=== PATIENT | male | born 1955 | race Caucasian/White ===

== ENCOUNTER 2020-08-30 13:46 | Outpatient (REF) | payer MEDICARE, SELFPAY ==
[2020-08-30 15:20] LABS: Anion Gap 14 (12-20); Blood Urea Nitrogen 17 mg/dL (9-16); Carbon Dioxide 32 mmol/L (22-29); Chloride 96 mmol/L (96-108); Estimated Glomerular Filt Rate > 60; Glucose Random 160 mg/dL (60-115); Sodium 137 mmol/L (135-145)
[2020-08-30 15:55] LABS: Folate > 20.0 ng/mL (> or = 4.0); Vitamin B12 1363 pg/mL (200-900)
[2020-08-31 08:40] LABS: Syphilis Screen Nonreactive (Nonreactive)
[2020-08-31 22:27] LABS: Lyme Abs Screen <0.90 index
[2020-09-05 11:16] LABS: IgA 670 mg/dL (70-320); IgG 1699 mg/dL (600-1540); IgM 36 mg/dL (50-300)
== END 2020-08-30 13:47 | disposition home or self-care (01) ==
LOC: HO.LAB 13:46
PROVIDERS: PCP Internal Medicine; Visit Provider Psychiatry & Neurology Neurology
DX: G62.9 Polyneuropathy, unspecified (principal)
CPT/HCPCS: 36415; 80048; 82607; 82746; 82784; 86334; 86618; 86780

== ENCOUNTER 2020-09-25 08:52 | Emergency (ER) | payer MEDICARE, SELFPAY ==
--- NOTE | 2020-09-25 08:53 | ED_ITS ---
HPI - Headache General Chief Complaint: Headache Stated Complaint: headache x3days Time Seen by Provider: 09/25/20 08:53 Source: patient Mode of arrival: EMS Limitations: no limitations History of Present Illness HPI Narrative: 59 y/o male presenting via EMS from custodial with right sided headache for the last 3-4 days. He states he just woke up with the headache and it is on the back of his head on the right side, extends down his neck and radiates to behind his eyes. He does not have a history of migraines, states he usually does not get headaches. He denies vision changes, gait disturbances, focal weakness. He denies COVID-19 symptoms and has had 5 tests in the last few months, all negative and last one was last week. He admits to some photophobia and sensivitity to noise. Most significant exacerbating factors are turning his head to the left and touching the base of his skull. MD elicited complaint: headache Onset (ago): day(s) (3-4) Onset description: suddenly Location: right, occipital, retro-orbital and down into neck Severity: moderate Quality & Timing: aching and different than previous headaches Exacerbating factors: movement of head/neck, light and noise Relieving factors: nothing Context: occurred at rest Associated symptoms: none Treatments prior to arrival: acetaminophen Related Data Previous Rx's Medication Instructions Recorded cyclobenzaprine 10 mg PO TID PRN #12 tab 09/25/20 hydrocodone-acetaminophen [[place]] 1 tab PO Q6H PRN #10 tab 09/25/20 Allergies Allergy/AdvReac Type Severity Reaction Status Date / Time No Known Allergies Allergy Verified 09/25/20 09:06 Review of Systems Review of Systems: Constitutional: No Fever, No Chills ENT/Mouth: No sore throat, No Rhinorrhea, No Swallowing Difficulty Eyes: No Eye Pain, No Swelling, No Redness, No vision changes Cardiovascular: No Chest Pain, No SOB Respiratory: No Cough, No Sputum, No Wheezing Gastrointestinal: No Nausea, + Vomiting (chronic), No Diarrhea, No abdominal Pain Genitourinary: No Dysuria, No Urinary Frequency, No Hematuria Musculoskeletal: No joint pain, + Myalgias Skin: No Skin Lesions, No rash Neuro: No Weakness, No Numbness, No Dizziness, + Headache Psych: No Anxiety/Panic, No Depression Heme/Lymph: No Bruising, No Lymphadenopathy Endocrine: No Polyuria, No Polydipsia PMF Past Medical History Attestation statement: The following information was validated with the patient. Medical History (Updated 09/25/20 @ 12:29 by SURINDER Billy) Anxiety Asthma Depression GERD (gastroesophageal reflux disease) Hypertension Surgical History (Updated 09/25/20 @ 09:17 by SURINDER Billy) History of hip replacement Social History Social History Alcohol intake: former Smoking Status: Former smoker Use of substances other than those prescribed or required for medical reasons: No Advance Directives: No Advance Directives Information Provided: Yes Physical Exam Vital Signs: Vital Signs: Last Vital Signs Temp 98.5 F 09/25/20 12:00 Pulse 73 09/25/20 12:00 Resp 18 09/25/20 12:00 BP 121/69 09/25/20 12:00 Pulse Ox 96 09/25/20 12:00 Body Mass Index 36.0 Appearance: Alert. Oriented X3. No acute distress. Eyes: Pupils equal, round and reactive to light. ENT: Pharynx normal. Neck: Normal inspection. Right occipital tenderness with muscle spasm of posterior right cervical region. No C-spine tenderness. Rotation to left exacerbates discomfort. CVS: Normal heart rate and rhythm. Pulses normal. Respiratory: No respiratory distress. Breath sounds normal. Abdomen: Obese, Soft and nontender. +BS x4 Skin: Skin warm and dry. Normal skin color. Normal skin turgor. No rashes. Extremities: No lower extremity edema. Neuro: Oriented X 3. No motor deficit. No sensory deficit. NIH Stroke Scale Internal: Initial- Upon Arrival Level of Consciousness: Alert Level of Consciousness Questions: Answers both questions correctly Level of Consciousness Commands: Performs both tasks correctly Best Gaze: Normal Visual: No visual loss Facial Palsy: Normal Motor Arm (Right): No drift Motor Arm (Left): No drift Motor Leg (Right): No drift Motor Leg (Left): No drift Limb Ataxia: Absent Sensory: Normal Best Language: No aphasia Dysarthia: Normal Extinction and Inattention: No abnormality Score: 0 Course Course Course Narrative: 65 yo male presenting with right sided headache and neck ache. Exam consistent with muscular etiology. Low suspicion for CVA, ICH. Will treat with NSAID, muscle relaxer and topical lidoderm patch and reassess. Reevaluation(s) Reevaluation #1: On reassessment after medications he states he has had no relief. He is concerned he has a cancer in the back of his neck and is requesting a CT scan. Continues to be tender on exam. Will give dose of oxycodone for pain and proceed with CT scan to assess for organic causes. Reevaluation #2: CT scan shows Mild cerebral volume loss. No acute intracranial process seen. Degenerative spine disease. Moderate ventral bridging osteophytes and degenerative disc changes. No visible acute fracture or dislocation or subluxation. Pain is slightly improved after meds. He feels well enough to go home. He is stable for discharge and plans to f/u with his PCP at [place] this week. Discharge Plan Discharge Clinical Impression: Headache Qualifiers: Headache type: tension-type Headache chronicity pattern: acute headache Intractability: not intractable Qualified Code(s): G44.209 - Tension-type headache, unspecified, not intractable Patient Disposition: Home, Self-Care Instructions: Acute Headache (ED) Additional Instructions: Your CT scan today showed only some degenerative disc disease in your neck, no obvious causes of your head and neck ache. Recommend using ice and/or heat several times per day to the area to help with muscle spasm. Take medications as needed for pain. Follow up with your doctor this week. If your headache persists or worsens come back to the ER for further evaluation. Prescriptions: New cyclobenzaprine 10 mg tablet 10 mg PO TID PRN (Reason: muscle spasm) Qty: 12 RF: 0 hydrocodone-acetaminophen [[place]] 5-325 mg tablet 1 tab PO Q6H PRN (Reason: pain) Qty: 10 RF: 0
[2020-09-25 08:59] VITALS: BP 130/73; PULSE 67; RESP 20; O2SAT 97; BMI 36.0
[2020-09-25] MEDS: Lidocaine 4 % Patch ADH..PATCH 1 PATCH TRANSDERMA (09:17)
[2020-09-25] MEDS: Ketorolac Tromethamine 30 MG/ML VIAL IM (09:18)
[2020-09-25] MEDS: Cyclobenzaprine HCl 10 MG TABLET PO (09:18)
--- NOTE | 2020-09-25 09:36 | PC.NURSE ---
Pt presents to the ED with c/o right sided headache and neck pain. He is alert, rr even, speaks in full sentences, skin is pwdi, and he is in moderate distress due to symptoms. SURINDER Chowdhury in to see pt and provided orders. Pt medicated per emar.
[2020-09-25 10:32] VITALS: BP 120/58; PULSE 62; O2SAT 97
--- NOTE | 2020-09-25 10:34 | CT_ITS ---
EXAMINATION: BRAIN AND CT CERVICAL SPINE WITHOUT CONTRAST. CLINICAL INFORMATION: Headache and right-sided neck pain COMPARISON: None TECHNIQUE: 5 mm thin axial and reformatted 2 mm thin sagittal and coronal images of brain were obtained. Subsequently axial 3 mm thin and reformatted 2 mm thin sagittal and coronal images of cervical spine were obtained. [facility] 1555 FINDINGS: Brain: There is no acute intra-axial, extra-axial bleed, masses, collection midline shift. The lateral ventricles are symmetrical in size and configuration with mild enlargement. The cortical sulci are symmetrical and appear normal No acute infarct in evolution. The sanchez to white matter differentiation is maintained. Bone windows reveal no calvarial abnormality. Minimal bilateral maxillary sinus mucoperiosteal thickening. Rest of the paranasal sinuses and mastoid air cells are well-aerated The scalp soft tissues are normal. Cervical spine: There is mild straightening of cervical lordosis. The vertebral heights and alignment is normal. There is loss of disc it virtually every disc level with mild posterior enthesophytes and moderate to large ventral bridging osteophytes. The craniovertebral junction and the C1-C2 alignment is normal. There is moderate right C2-C3 facet arthropathy with neural foraminal narrowing. There is bilateral uncovertebral hypertrophic changes C3-C4 C4-C5 C5-C6 and C6-C7 disc levels with mild to minimal neural foraminal narrowing. No visible acute fracture or lytic process seen. The lung apices are clear. The airway is widely patent. The lung apices are clear CT/CT head/brain wo con IMPRESSION: Mild cerebral volume loss. No acute intracranial process seen Degenerative spine disease. Moderate ventral bridging osteophytes and degenerative disc changes. No visible acute fracture or dislocation or subluxation.
--- NOTE | 2020-09-25 10:34 | CT_ITS ---
EXAMINATION: BRAIN AND CT CERVICAL SPINE WITHOUT CONTRAST. CLINICAL INFORMATION: Headache and right-sided neck pain COMPARISON: None TECHNIQUE: 5 mm thin axial and reformatted 2 mm thin sagittal and coronal images of brain were obtained. Subsequently axial 3 mm thin and reformatted 2 mm thin sagittal and coronal images of cervical spine were obtained. [facility] 1555 FINDINGS: Brain: There is no acute intra-axial, extra-axial bleed, masses, collection midline shift. The lateral ventricles are symmetrical in size and configuration with mild enlargement. The cortical sulci are symmetrical and appear normal No acute infarct in evolution. The sanchez to white matter differentiation is maintained. Bone windows reveal no calvarial abnormality. Minimal bilateral maxillary sinus mucoperiosteal thickening. Rest of the paranasal sinuses and mastoid air cells are well-aerated The scalp soft tissues are normal. Cervical spine: There is mild straightening of cervical lordosis. The vertebral heights and alignment is normal. There is loss of disc it virtually every disc level with mild posterior enthesophytes and moderate to large ventral bridging osteophytes. The craniovertebral junction and the C1-C2 alignment is normal. There is moderate right C2-C3 facet arthropathy with neural foraminal narrowing. There is bilateral uncovertebral hypertrophic changes C3-C4 C4-C5 C5-C6 and C6-C7 disc levels with mild to minimal neural foraminal narrowing. No visible acute fracture or lytic process seen. The lung apices are clear. The airway is widely patent. The lung apices are clear CT/CT cervical spine wo con IMPRESSION: Mild cerebral volume loss. No acute intracranial process seen Degenerative spine disease. Moderate ventral bridging osteophytes and degenerative disc changes. No visible acute fracture or dislocation or subluxation.
[2020-09-25] MEDS: oxyCODONE HCl Immed Release 5 MG TABLET PO (10:39)
[2020-09-25 12:00] VITALS: BP 121/69; PULSE 73; RESP 18; TEMP 36.9; O2SAT 96
== END 2020-09-25 13:03 | disposition home or self-care (01) ==
PROVIDERS: Emergency Provider Emergency Medicine Emergency Medical Services; PCP Internal Medicine
DX: G44.209 Tension-type headache, unspecified, not intractable (principal); I10 Essential (primary) hypertension; M54.5 Low back pain; M54.2 Cervicalgia; Z87.891 Personal history of nicotine dependence; Z79.899 Other long term (current) drug therapy
CPT/HCPCS: 70450; 72125; 96372; 99284; J1885

== ENCOUNTER 2021-07-23 14:52 | Emergency (ER) | payer MEDICARE, SELFPAY ==
[2021-07-23 15:51] VITALS: BP 138/69; PULSE 107; RESP 18; TEMP 36.6; O2SAT 100; BMI 33.7
--- NOTE | 2021-07-23 15:58 | PC.NURSE ---
left foot and lower leg re-dressed with DSD.
[2021-07-23 17:40] LABS: Hematocrit 35.3 % (42-52); Hemoglobin 11.4 g/dl (14.0-18.0); Mean Corpuscular HGB Conc 32.3 g/dl (31.0-36.0); Mean Corpuscular Hemoglobin 29.8 pg (27.0-33.0); Mean Corpuscular Volume 92.4 fL (80-98); Mean Platelet Volume 10.5 fL (9.4-12.4); Red Blood Count 3.82 X10*6/uL (4.60-5.80); Red Cell Distribution Width 13.9 % (11.0-16.0); White Blood Count 3.7 X10*3/uL (4.8-10.8)
[2021-07-23 18:01] LABS: Platelet Count 91 X10*3/uL (160-400)
[2021-07-23 18:08] LABS: Anion Gap 12 (12-20); Blood Urea Nitrogen 15 mg/dL (9-16); Calcium 8.9 mg/dL (8.4-10.2); Carbon Dioxide 28 mmol/L (22-29); Chloride 104 mmol/L (96-108); Creatinine Clr Calc Pharmacy 124.7; Estimated Glomerular Filt Rate > 60; Glucose Random 185 mg/dL (60-115); Potassium 4.2 mmol/L (3.3-5.1); Sodium 140 mmol/L (135-145)
[2021-07-23 19:55] VITALS: BP 135/69; PULSE 61; RESP 20; TEMP 36.4; O2SAT 99
--- NOTE | 2021-07-23 20:12 | ED_ITS ---
HPI - General Adult General Chief complaint: Extremity Problem Stated complaint: FOOT INFECTON Time Seen by Provider: 07/23/21 19:41 Source: patient Mode of arrival: ambulatory Limitations: no limitations History of Present Illness HPI narrative: 66-year-old male with a past medical history of chronic lower extremity wounds for years, pre diabetes on metformin here with complaints of requesting wound check. Patient tells me that yesterday he had a cardiac catheterization at [facility] and when the supervisory historian saw his leg wounds they recommended he get evaluated for these. He tells me that the wounds have spread but he does not feel like there is more redness or drainage or odor with the wounds. He also does not have any fevers or chills at home reported. Patient tells me he has restless leg syndrome and is constantly itching at his legs which causes these wounds to occur. He does have a PATTERN MECHANIC who comes into his house twice a week to help with his ADLs. He does not have wound care nurse. He has not seen the wound care center before Related Data Previous Rx's Medication Instructions Recorded cyclobenzaprine 10 mg tablet 10 mg PO TID PRN #12 tab 09/25/20 hydrocodone 5 mg-acetaminophen 325 1 tab PO Q6H PRN #10 tab 09/25/20 mg tablet ([place]) doxycycline monohydrate 100 mg 100 mg PO BID #20 tab 07/23/21 tablet mupirocin 2 % topical ointment 1 appl TOPICAL DAILY #22 g 07/23/21 Allergies Allergy/AdvReac Type Severity Reaction Status Date / Time No Known Allergies Allergy Verified 09/25/20 09:06 Review of Systems Review of Systems: Yes all other systems are reviewed and are negative Constitutional: Constitutional: Reports no additional constitutional complaints, Denies body ache(s), Denies chills, Denies fever(s), Denies headache(s) and Denies weakness Eyes: Eyes: Reports no additional eye complaints and Denies change in vision ENT: Reports system reviewed and no additional complaints, except as documented, Denies dizziness, Denies headache(s), Denies nasal congestion, Denies nasal discharge and Denies neck pain Cardiovascular: Cardiovascular: Reports no additional cardiovascular complain ts, Denies chest pain, Denies leg edema and Denies dyspnea Respiratory: Respiratory: Reports no additional respiratory complaints, Denies cough and Denies dyspnea Gastrointestinal: Gastrointestinal: Reports no additional gastrointestinal complaints, Denies abdominal pain, Denies diarrhea, Denies nausea and Denies vomiting Genitourinary: Genitourinary: Denies urinary incontinence Musculoskeletal: Musculoskeletal: Reports no additional musculoskeletal complaints, Denies back pain, Denies arthralgias, Denies joint swelling, Denies neck pain, Denies numbness and Denies tingling Integumentary/Breasts: Skin/Breast: Reports system reviewed and no additional complaints, except as docu, Reports non-healing lesions and Denies rash Neurologic: Reports system reviewed and no additional complaints, except as documented, Denies Abnormal speech present, Denies dizziness, Denies headache(s), Denies numbness, Denies tingling and Denies weakness PMFSH Past Medical History Attestation statement: The following information was validated with the patient. Source: old records reviewed and nursing notes reviewed Medical History Anxiety Asthma Depression GERD (gastroesophageal reflux disease) Hypertension Surgical History History of hip replacement Social History Social History Alcohol intake: former Patient Tobacco Use Status: Former Tobacco user Use of substances other than those prescribed or required for medical reasons: No Advance Directives: No Advance Directives Information Provided: Yes Physical Exam Vital Signs: Vital Signs: Last Vital Signs Temp 97.5 F 07/23/21 19:55 Pulse 61 07/23/21 19:55 Resp 20 07/23/21 19:55 BP 135/69 07/23/21 19:55 Pulse Ox 99 07/23/21 19:55 Body Mass Index 33.7 Const: General: cooperative, healthy appearing, comfortable and no acute distress Orientation/consciousness: patient oriented x3 Limitations: no limitations HENMT: Head: Yes normal to inspection Ears: hearing grossly normal bilaterally General nose exam: Normal external nose present Face and sinus: Yes normal facial exam Mouth: Normal oral and palatal mucosa present Throat: Yes posterior oropharynx normal Eyes: General: appearance normal, both eyes and all related structures Pupils: Equal, round and reactive pupils present Neck: Neck: Yes normal visual inspection Chest: Chest palpation & inspection: normal inspection of the chest Resp: Effort & Inspection: normal respiratory effort Auscultation: clear to auscultation bilaterally Cardio: Rate: regular rate Rhythm: regular rhythm Peripheral pulses: Peripheral pulses 2+ throughout GI: Inspection: Yes normal to inspection Palpation (GI): Soft to palpation and nontender Auscultation: normal bowel sounds Back/Spine/Pelvis: Thoracic/Lumbar Spine: thoracic and lumbar spine normal to inspection Skin: General skin exam: no rashes or lesions noted Neuro: General: patient oriented x3, no focal motor deficits and normal sensation to monofilament Cranial nerves: Yes Equal, round and reactive pupils present Cognition (Neuro): normal cognition Speech: No Abnormal speech present Gait exam (Neuro): Normal gait present Motor exam (neuro): 5/5 motor strength present throughout Extrem: Other: General: Yes normal to inspection Course Course Course Narrative: Chronic lower extremity wounds for months to years. There is some slight redness to the lower extremities on the right lower extremity there is an area of eschar covering the wound bed. No fevers. Labs at baseline. Patient with benefit from wound care. He tells me he is unable to bend down due to chronic hip pain today care of his legs. In addition he has restless legs syndrome and is constantly itching his lower legs. Case management involved. They will arrange for VNA services. Patient instructed to call wound care tomorrow. Will start patient on oral antibiotics in the meantime. Wound dressed by nursing. Reviewed worrisome signs and symptoms of when to return to the emergency department. Comfortable discharge home. Medical Decision Making Medical Records Medical records reviewed: Yes I reviewed the patient's medical records. Lab Data Lab results reviewed: Yes I reviewed the patient's lab results. Result diagrams: 07/23/21 17:34 07/23/21 17:34 Labs: Lab Results 07/23/21 07/23/21 Range/Units 17:34 17:34 WBC 3.7 L (4.8-10.8) X10*3/uL RBC 3.82 L (4.60-5.80) X10*6/uL Hgb 11.4 L (14.0-18.0) g/dl Hct 35.3 L (42-52) % MCV 92.4 (80-98) fL MCH 29.8 (27.0-33.0) pg MCHC 32.3 (31.0-36.0) g/dl RDW 13.9 (11.0-16.0) % Plt Count 91 L (160-400) X10*3/uL MPV 10.5 (9.4-12.4) fL Absolute Nucleated RBC 0.000 (0.0-0.012) X10*3/uL Nucleated RBC % (auto) 0.0 (0.0-0.2) /100WBC Sodium 140 (135-145) mmol/L Potassium 4.2 (3.3-5.1) mmol/L Chloride 104 (96-108) mmol/L Carbon Dioxide 28 (22-29) mmol/L Anion Gap 12 (12-20) BUN 15 (9-16) mg/dL Creatinine 0.81 (0.5-1.4) mg/dL Estim Creat Clear Calc 124.7 Estimated GFR > 60 Random Glucose 185 H (60-115) mg/dL Calcium 8.9 (8.4-10.2) mg/dL Discharge Plan Discharge Clinical Impression: Chronic wound of extremity Patient Disposition: Home, Self-Care Instructions: Chronic Wounds (ED) Additional Instructions: Call wound care tomorrow to make an appointment for your wound ([phone]) The visiting nurses will reach out to you to set up an appointment to come and see you Apply topical antibiotic ointment to the wounds and keep them covered, clean and dry Seek care for fever >100.4 Prescriptions: New doxycycline monohydrate 100 mg tablet 100 mg PO BID Qty: 20 RF: 0 mupirocin 2 % ointment 1 appl topical DAILY Qty: 22 RF: 0 No Action cyclobenzaprine 10 mg tablet 10 mg PO TID PRN (Reason: muscle spasm) Qty: 12 RF: 0 hydrocodone-acetaminophen [[place]] 5-325 mg tablet 1 tab PO Q6H PRN (Reason: pain) Qty: 10 RF: 0 Referrals: Al Ma MD [Primary Care Provider] - 2 days Interventions: ED Discharge Assessment Last Done: 07/23/21 20:28
--- NOTE | 2021-07-23 20:40 | PC.NURSE ---
patient a&ox3, property assessment monitor sinus elana, vitals stable, patient ble dressings taken down by provider and will be re-dressed by tech, case mgmt in to see patient. patient to discharge home
--- NOTE | 2021-07-23 21:24 | MHC.CM.ED ---
CM met with patient. Pt lives in a [facility] nursing home in [place]. Tells CM he has been [facility] and he hopes to move there in about 3 weeks. Pt has a IRONWORKER WIRE FENCE ERECTOR twice a week for 1 hour, that her privately pays for. Pt is A&Ox3. Pt uses a cane and a walker if needed.Pt has chronic lower extremity wounds.Was referred to wound care. Referral made to [facility] for dressing changes at pt request. F2F completed. Script for Mupirocin sent to pharmacy. Dressing changes ordered once a day, 5 days a week. Apply topical triple antibiotic, apply non-stick dressing and kerlix wraps. Pt d/c home.
--- NOTE | 2021-07-24 13:51 | MHC.CM.ED ---
Patient was d/c'd from ER last night. Referral was made to [facility]. [facility] is not able to accept patient. Referral made to [facility]. They're reviewing. Spoke with [facility] wound care center. Patient does not have an appointment with them yet. Clinical info faxed to their office as requested. Continue to monitor for d/c needs.
== END 2021-07-23 21:06 | disposition home or self-care (01) ==
PROVIDERS: Emergency Provider Emergency Medicine Emergency Medical Services; PCP Internal Medicine
DX: S80.921A Unspecified superficial injury of right lower leg, initial encounter (principal); S80.922A Unspecified superficial injury of left lower leg, initial encounter; L03.114 Cellulitis of left upper limb; L03.113 Cellulitis of right upper limb; B96.89 Other specified bacterial agents as the cause of diseases classified elsewhere; X58.XXXA Exposure to other specified factors, initial encounter; Y93.9 Activity, unspecified; Y92.9 Unspecified place or not applicable; Y99.9 Unspecified external cause status; Z79.899 Other long term (current) drug therapy
CPT/HCPCS: 36415; 80048; 85027; 99284

== ENCOUNTER 2021-07-30 08:00 | Outpatient (RCR) | payer MEDICARE, SELFPAY | END 2021-08-06 14:48 | disposition home or self-care (01) | LOC: HO.WCC 08:00 | PROVIDERS: PCP Internal Medicine; Visit Provider Physician Assistant | DX: E11.65 Type 2 diabetes mellitus with hyperglycemia (principal); L01.00 Impetigo, unspecified; I10 Essential (primary) hypertension; Z79.2 Long term (current) use of antibiotics | CPT/HCPCS: 99213 ==

== ENCOUNTER 2022-05-20 07:23 | Emergency (ER) | payer OTHER, MEDICAID, SELFPAY ==
--- NOTE | ~2022-05-20 | CT_ITS ---
EXAMINATION: CT CERVICAL SPINE WITHOUT CONTRAST CLINICAL INFORMATION: Pain COMPARISON: 09/25/2020 TECHNIQUE: Multidetector CT imaging of the cervical spine was performed without the use of intravenous contrast. Coronal and sagittal reformats are reviewed. This CT examination was performed using dose optimization techniques as appropriate, variously including the following: *Automated exposure control *Adjustment of mA and/or kV according to patient size (this includes techniques or standardized protocols for targeted exams where dose is matched to indication/reason for exam; i.e. extremities or head) *Use of iterative reconstruction technique DLP: 539 mGy-cm FINDINGS: No acute fracture or traumatic malalignment. Vertebral body heights maintained. There is complete obliteration of the disc spaces throughout the cervical spine. Bulky endplate ossified present throughout the cervical spine, bridging and confluent anteriorly. There is also facet arthropathy throughout the cervical spine, quite bulky on the right from C2 through C4 and on the left at C5-6. Paraspinal soft tissues unremarkable. CT/CT cervical spine wo con IMPRESSION: * No acute fracture or traumatic malalignment. * Bulky endplate osteophytes present throughout the cervical spine with bridging anteriorly suggestive of diffuse idiopathic skeletal hyperostosis.
[2022-05-20 07:34] VITALS: BP 115/67; PULSE 63; RESP 18; TEMP 36.7; O2SAT 96; BMI 33.7
--- NOTE | 2022-05-20 07:35 | ECG_ITS ---
Test Reason : shoulder pain Blood Pressure : / mmHG Vent. Rate : 060 BPM Atrial Rate : 000 BPM P-R Int : 000 ms QRS Dur : 082 ms QT Int : 424 ms P-R-T Axes : 000 -01 077 degrees QTc Int : 424 ms Poor data quality, interpretation may be adversely affected Sinus rhythm with first degree Av block Otherwise abnormal ECG When compared with ECG of 08-DEC-2013 03:44, No significant changes seen Referred By: Keshia Atkins Electronically Signed By:Nithin Nathan
--- NOTE | 2022-05-20 07:37 | ED.GENADULT ---
HPI - General Adult General Chief complaint: General Medical Stated complaint: right neck/shoulder pain Time Seen by Provider: 05/20/22 07:35 Source: patient Mode of arrival: EMS Limitations: no limitations History of Present Illness HPI narrative: 67 yo male with hx of bipolar disorder, DM, HTN hx of neck arthritis comes in with c/o neck and L shoulder pain that woke him from sleep at 3am. He doesn't remember an injury and was inside yesterday. He has had neck pain in the past. EMS states the RNs at assisted living feel he is more confused but the patient denies this and he is alert and oriented x 3. MD complaint: neck and shoulder pain Onset (ago): hour(s) (3am today) Location: neck, left and upper extremity Radiation: non-radiation Severity: moderate Quality: aching, dull and constant Pain Consistency: constant Relieving factors: none Exacerbating factors: movement (moving neck or raising L arm) Associated symptoms: denies other symptoms Treatments prior to arrival: none Related Data Previous Rx's Medication Instructions Recorded cyclobenzaprine 10 mg tablet 10 mg PO TID PRN muscle spasm #12 09/25/20 tabs hydrocodone 5 mg-acetaminophen 325 1 tab PO Q6H PRN pain #10 tabs 09/25/20 mg tablet ([place]) doxycycline monohydrate 100 mg 100 mg PO BID #20 tabs 07/23/21 tablet mupirocin 2 % topical ointment 1 appl topical DAILY #22 grams 07/23/21 cyclobenzaprine 10 mg tablet 10 mg PO TID PRN muscle spasm #14 05/20/22 tabs lidocaine 4 % topical patch 1 patch topical DAILY PRN pain #10 05/20/22 ea Allergies Allergy/AdvReac Type Severity Reaction Status Date / Time No Known Allergies Allergy Verified 09/25/20 09:06 Review of Systems Review of Systems: Constitutional : No Fever, No Chills ENT/Mouth : No Ear Pain, No Hoarseness, No sore throat Eyes: No Eye Pain, No Swelling, No Redness, No Foreign Body Cardiovascular : No Chest Pain, No SOB Respiratory : No Cough, No Dyspnea Gastrointestinal : No Nausea, No Vomiting, No Diarrhea, No abdominal Pain Genitourinary : No Dysuria, No Hematuria Musculoskeletal : positive joint pain, No Myalgias, No Joint Swelling, pos neck pain Skin : No Skin lacerations, No rash Neuro : No Weakness, No Numbness, No Loss of Consciousness, No Dizziness, No Headache Psych : No Anxiety/Panic, No Depression Heme/Lymph: no easy bruising, no Lymphadenopathy Endocrine : No Polyuria, No Polydipsia All other systems reviewed and are negative [facility] Past Medical History Attestation statement: The following information was validated with the patient. Medical History Anxiety Asthma Depression GERD (gastroesophageal reflux disease) Hypertension Surgical History History of hip replacement Social History Social History Alcohol intake: former Patient Tobacco Use Status: Former Tobacco user Advance Directives: Yes Advance Directives Information Provided: Yes Advance Directives on File: No Physical Exam ED Vital Signs: Vital Signs - 24 hr 05/20/22 07:34 Temperature 98.1 F Pulse Rate 63 Respiratory Rate 18 Blood Pressure 115/67 Pulse Oximetry 96 Oxygen Delivery Method Room Air BMI result Body Mass Index 33.7 Appearance: Alert. Oriented X3. No acute distress. Eyes: Pupils equal, round and reactive to light. ENT: Pharynx normal. Neck: no midline ttp, L trapezius ttp reproduces pain CVS: Normal heart rate and rhythm. Pulses normal. Respiratory: No respiratory distress. Breath sounds normal. Abdomen: Soft and nontender. Skin: Skin warm and dry. Normal skin color. Normal skin turgor. Extremities: No lower extremity edema. L shoulder pain with ROM testing - distal NV intact Neuro: Oriented X 3. No motor deficit. No sensory deficit. Course Course Course Narrative: EKG nonischemic trop flat CT scan large bridging osteophytes likely cause of pain - UE NV intact case management called - patient not confused unsure of EMS report they have no concerns at facility - he can be discharged back. Medical Decision Making [facility] Narrative Medical decision making narrative: 67 yo male with hx of bipolar disorder, DM, HTN hx of neck arthritis here with c/o atraumatic neck and shoulder pain - at this time he is NV intact. Has no CP/SOB. Will obtain labs, EKG, PO tylenol/lidocaine patch, CT scan for mass. Seems MSK in nature reproduceable with palpation and movements. Lab Data Result diagrams: 05/20/22 07:56 05/20/22 07:56 Labs: Lab Results 05/20/22 05/20/22 05/20/22 Range/Units 07:56 07:56 07:56 WBC 4.6 L (4.8-10.8) X10*3/uL RBC 3.89 L (4.60-5.80) X10*6/uL Hgb 12.1 L (14.0-18.0) g/dl Hct 36.5 L (42.0-52.0) % MCV 93.8 (80.0-98.0) fL MCH 31.1 (27.0-33.0) pg MCHC 33.2 (31.0-36.0) g/dl RDW 15.0 (11.0-16.0) % Plt Count 82 L (160-400) X10*3/uL MPV 9.9 (9.4-12.4) fL Immature Gran % (Auto) 0.4 (0.0-0.4) % Neut % (Auto) 37.8 L (45-73) % Lymph % (Auto) 37.4 (20-40) % [place] % (Auto) 18.6 H (2-11) % Eos % (Auto) 5.4 H (0-4) % Baso % (Auto) 0.4 (0-2) % Lymph # (Auto) 1.7 (1.2-4.9) X10*3/uL [place] # (Auto) 0.9 (0.1-1.2) X10*3/uL Eos # (Auto) 0.3 (0.0-0.4) X10*3/uL Baso # (Auto) 0.0 (0.0-0.2) X10*3/uL Abs Immat Gran (auto) 0.02 (0.00-0.03) X10*3/uL Absolute Neuts (auto) 1.8 L (2.0-8.3) x10*3/uL Absolute Nucleated RBC 0.000 (0.0-0.012) X10*3/uL Nucleated RBC % (auto) 0.0 (0.0-0.2) /100WBC Sodium 139 (135-145) mmol/L Potassium 4.7 (3.3-5.1) mmol/L Chloride 99 (96-108) mmol/L Carbon Dioxide 33 H (22-29) mmol/L Anion Gap 12 (12-20) BUN 19 H (9-16) mg/dL Creatinine 1.01 (0.5-1.4) mg/dL Estim Creat Clear Calc 98.7 Estimated GFR > 60 Random Glucose 119 H D (60-115) mg/dL Calcium 9.2 (8.4-10.2) mg/dL Magnesium 1.5 L (1.6-2.6) mg/dL Troponin I High Sens < 3.5 (<3.5-35.0) ng/L Valproic Acid (50.0-100.0) mcg/mL COVID-19 (RYAN) (Negative) COVID-19 Clin Com 05/20/22 05/20/22 Range/Units 07:56 08:32 WBC (4.8-10.8) X10*3/uL RBC (4.60-5.80) X10*6/uL Hgb (14.0-18.0) g/dl Hct (42.0-52.0) % MCV (80.0-98.0) fL MCH (27.0-33.0) pg MCHC (31.0-36.0) g/dl RDW (11.0-16.0) % Plt Count (160-400) X10*3/uL MPV (9.4-12.4) fL Immature Gran % (Auto) (0.0-0.4) % Neut % (Auto) (45-73) % Lymph % (Auto) (20-40) % [place] % (Auto) (2-11) % Eos % (Auto) (0-4) % Baso % (Auto) (0-2) % Lymph # (Auto) (1.2-4.9) X10*3/uL [place] # (Auto) (0.1-1.2) X10*3/uL Eos # (Auto) (0.0-0.4) X10*3/uL Baso # (Auto) (0.0-0.2) X10*3/uL Abs Immat Gran (auto) (0.00-0.03) X10*3/uL Absolute Neuts (auto) (2.0-8.3) x10*3/uL Absolute Nucleated RBC (0.0-0.012) X10*3/uL Nucleated RBC % (auto) (0.0-0.2) /100WBC Sodium (135-145) mmol/L Potassium (3.3-5.1) mmol/L Chloride (96-108) mmol/L Carbon Dioxide (22-29) mmol/L Anion Gap (12-20) BUN (9-16) mg/dL Creatinine (0.5-1.4) mg/dL Estim Creat Clear Calc Estimated GFR Random Glucose (60-115) mg/dL Calcium (8.4-10.2) mg/dL Magnesium (1.6-2.6) mg/dL Troponin I High Sens (<3.5-35.0) ng/L Valproic Acid 68.8 (50.0-100.0) mcg/mL COVID-19 (RYAN) Negative (Negative) COVID-19 Clin Com See Note ECG Data Attestation: I personally reviewed and interpreted this ECG as follows: Interpretation: Rate: 60 Rhythm: NSR [place]: normal Normal P waves. Normal HARSHA. Normal QRS complex. ST T wave : normal no LUISA qTC: normal prior studies: no acute ischemia The study has been interpreted contemporaneously by me. . Discharge Plan Discharge Clinical Impression: Osteophyte of cervical spine, Hypomagnesemia Patient Disposition: Home, Self-Care Instructions: Hypomagnesemia (ED), Acute Neck Pain (ED) Additional Instructions: return to ED for any worsening symptoms or concerns FINDINGS: No acute fracture or traumatic malalignment. Vertebral body heights maintained. There is complete obliteration of the disc spaces throughout the cervical spine. Bulky endplate ossified present throughout the cervical spine, bridging and confluent anteriorly. There is also facet arthropathy throughout the cervical spine, quite bulky on the right from C2 through C4 and on the left at C5-6. Paraspinal soft tissues unremarkable. CT/CT cervical spine wo con IMPRESSION: *? No acute fracture or traumatic malalignment. *? Bulky endplate osteophytes present throughout the cervical spine with bridging anteriorly suggestive of diffuse idiopathic skeletal hyperostosis. Prescriptions: New cyclobenzaprine 10 mg tablet 10 mg PO TID PRN (Reason: muscle spasm) Qty: 14 0RF lidocaine 4 % adhesive patch,medicated 1 patch topical DAILY PRN (Reason: pain) Qty: 10 0RF Rx Instructions: may leave on for up to 12 hrs No Action cyclobenzaprine 10 mg tablet 10 mg PO TID PRN (Reason: muscle spasm) Qty: 12 0RF hydrocodone-acetaminophen [[place]] 5-325 mg tablet 1 tab PO Q6H PRN (Reason: pain) Qty: 10 0RF Rx Instructions: for 3 days doxycycline monohydrate 100 mg tablet 100 mg PO BID Qty: 20 0RF mupirocin 2 % ointment 1 appl topical DAILY Qty: 22 0RF Referrals: Al Ma III, MD [Primary Care Provider] - 3 days
[2022-05-20] MEDS: Lidocaine 4 % Patch ADH..PATCH 1 PATCH TRANSDERMA (07:40)
[2022-05-20] MEDS: Acetaminophen 325 MG TABLET 650 MG PO (07:40)
[2022-05-20 08:00] LABS: MANUAL DIFF FLAG NO
[2022-05-20 08:02] LABS: Basophils Percent Auto 0.4 % (0-2); Eosinophils Absolute Auto 0.3 X10*3/uL (0.0-0.4); Eosinophils Percent Auto 5.4 % (0-4); Hematocrit 36.5 % (42.0-52.0); Hemoglobin 12.1 g/dl (14.0-18.0); Imm Gran Abs Auto 0.02 X10*3/uL (0.00-0.03); Imm Gran Pct Auto 0.4 % (0.0-0.4); Lymphocytes Absolute Auto 1.7 X10*3/uL (1.2-4.9); Lymphocytes Percent Auto 37.4 % (20-40); Mean Corpuscular HGB Conc 33.2 g/dl (31.0-36.0); Mean Corpuscular Hemoglobin 31.1 pg (27.0-33.0); Mean Corpuscular Volume 93.8 fL (80.0-98.0); Mean Platelet Volume 9.9 fL (9.4-12.4); Monocytes Absolute Auto 0.9 X10*3/uL (0.1-1.2); Monocytes Percent Auto 18.6 % (2-11); Neutrophils Absolute Auto 1.8 x10*3/uL (2.0-8.3); Neutrophils Percent Auto 37.8 % (45-73); Red Blood Count 3.89 X10*6/uL (4.60-5.80); White Blood Count 4.6 X10*3/uL (4.8-10.8)
[2022-05-20 08:03] LABS: Platelet Count 82 X10*3/uL (160-400)
[2022-05-20 08:15] LABS: Anion Gap 12 (12-20); Blood Urea Nitrogen 19 mg/dL (9-16); Calcium 9.2 mg/dL (8.4-10.2); Carbon Dioxide 33 mmol/L (22-29); Chloride 99 mmol/L (96-108); Creatinine Clr Calc Pharmacy 98.7; Estimated Glomerular Filt Rate > 60; Glucose Random 119 mg/dL (60-115); Magnesium 1.5 mg/dL (1.6-2.6); Potassium 4.7 mmol/L (3.3-5.1); Sodium 139 mmol/L (135-145)
[2022-05-20 08:22] LABS: Troponin-I High Sensitivity < 3.5 ng/L (<3.5-35.0)
[2022-05-20 08:33] LABS: IDNOW Serial# 16C4AD1C
[2022-05-20 08:34] LABS: COVID-19 Test Negative (Negative)
[2022-05-20] MEDS: Magnesium Sulfate/H2O 2 GM/50 ML PIGGYBACK IV (08:50)
[2022-05-20 09:04] LABS: Valproate 68.8 mcg/mL (50.0-100.0)
== END 2022-05-20 13:49 | disposition home or self-care (01) ==
PROVIDERS: Emergency Provider Emergency Medicine; PCP Internal Medicine
DX: M25.78 Osteophyte, vertebrae (principal); E83.42 Hypomagnesemia; M54.2 Cervicalgia; M25.512 Pain in left shoulder; I10 Essential (primary) hypertension; E11.9 Type 2 diabetes mellitus without complications; Z20.822 Contact with and (suspected) exposure to COVID-19
CPT/HCPCS: 36415; 72125; 80048; 80164; 83735; 84484; 85025; 87635; 93005; 96365; 96366; 99284; 99285; J3475

== ENCOUNTER 2022-07-05 05:53 | Emergency (ER) | payer OTHER, MEDICARE, SELFPAY ==
--- NOTE | ~2022-07-05 | CT_ITS ---
EXAMINATION: CT HEAD WITHOUT CONTRAST CLINICAL INFORMATION: Status post fall, rule out intracranial abnormality. COMPARISON: 09/25/[address] scan. TECHNIQUE: Contiguous axial imaging was performed from the skull base to vertex without intravenous administration of contrast. Coronal and sagittal reformatted images were obtained. This CT examination was performed using dose optimization techniques as appropriate, variously including the following: *Automated exposure control *Adjustment of mA and/or kV according to patient size (this includes techniques or standardized protocols for targeted exams where dose is matched to indication/reason for exam; i.e. extremities or head) *Use of iterative reconstruction technique DLP: 855.33 mGy-cm FINDINGS: There is mild widening of the cortical sulci and associated ventriculomegaly. The lateral ventricles are symmetrical. The third and fourth ventricles are in their normal midline position. The basilar and prepontine cisterns are unremarkable. There is no acute intra or extracerebral abnormality. There is no mass effect or midline shift. Sections through the bony calvarium are unremarkable. The orbits are intact. The paranasal sinuses show a very small retention cyst versus inflammatory polyp anteriorly in the right maxillary sinus. Small inferior right mastoid effusion. The left mastoid air cells are clear. Incidental moderate debris in the medial aspect of the right external auditory canal. Mild to moderate anterior nasal septal deviation, apex of the right. Mild mid nasal septal deviation, apex the left with small apical spur. CT/CT head/brain wo IV con IMPRESSION: No acute intracranial pathology.
--- NOTE | ~2022-07-05 | CT_ITS ---
EXAMINATION: CT CERVICAL SPINE WITHOUT CONTRAST CLINICAL INFORMATION: Neck pain status post fall. COMPARISON: 05/20/[address] scan. TECHNIQUE: Multiple axial images of the cervical spine were obtained without the administration of intravenous contrast. Coronal and sagittal reformatted images were obtained. This CT examination was performed using dose optimization techniques as appropriate, variously including the following: *Automated exposure control *Adjustment of mA and/or kV according to patient size (this includes techniques or standardized protocols for targeted exams where dose is matched to indication/reason for exam; i.e. extremities or head) *Use of iterative reconstruction technique DLP: 441.86 mGy-cm FINDINGS: There is straightening of the normal cervical lordosis with severe multilevel degenerative disc disease and bulky marginal osteophyte formation with similar appearance. Multilevel mild neural foraminal narrowing is not significantly changed. Mild to moderate multilevel facet arthropathy is seen most pronounced at C2-C3 on the right. The odontoid process is intact with mild articular degenerative changes. The spinous processes are intact. The cervical soft tissues are unremarkable. There is no lymphadenopathy. The thyroid gland is unremarkable. The lung apices are clear. CT/CT cervical spine wo IV con IMPRESSION: No acute abnormality. Significant multilevel degenerative changes without significant interval change.
[2022-07-05 05:56] VITALS: BP 130/80; PULSE 61; O2SAT 98; BMI 33.3
[2022-07-05 06:07] VITALS: BP 130/73; PULSE 69; RESP 16; TEMP 36.5; O2SAT 98
--- NOTE | 2022-07-05 06:45 | ED.FALL ---
HPI - Fall General Chief Complaint: Fall Stated Complaint: Fall/Head Strick Time Seen by Provider: 07/05/22 06:44 Source: patient and old records reviewed Mode of arrival: EMS Limitations: no limitations History of Present Illness HPI Narrative: 67 yo male with hx of falls, HTN, DM, arthritis states around 2am he tripped on an [employer] package in the middle of his floor when he went to get up and make a sandwhich. He was on the floor for a couple of hours. He hit his head and reports some confusion after but no LOC. He denies any other injury states his shoulders hurt at baseline and that this isn't new. complaint: fall Onset (ago): hour(s) (2am) Fall from: standing Fall witnessed: no Place fall occurred: home Loss of consciousness: none Prolonged down time: yes and hour(s) (few) Symptoms prior to fall: none Context: tripped/slipped Location of injury: head Severity: mild Quality: aching Associated symptoms (after fall): headache Related Data Previous Rx's Medication Instructions Recorded cyclobenzaprine 10 mg tablet 10 mg PO TID PRN muscle spasm #12 09/25/20 tabs hydrocodone 5 mg-acetaminophen 325 1 tab PO Q6H PRN pain #10 tabs 09/25/20 mg tablet ([place]) doxycycline monohydrate 100 mg 100 mg PO BID #20 tabs 07/23/21 tablet mupirocin 2 % topical ointment 1 appl topical DAILY #22 grams 07/23/21 cyclobenzaprine 10 mg tablet 10 mg PO TID PRN muscle spasm #14 05/20/22 tabs lidocaine 4 % topical patch 1 patch topical DAILY PRN pain #10 05/20/22 ea Allergies Allergy/AdvReac Type Severity Reaction Status Date / Time No Known Allergies Allergy Verified 09/25/20 09:06 Review of Systems Review of Systems: Constitutional : No Fever, No Chills, No Fatigue ENT/Mouth : No sore throat, No Rhinorrhea Eyes: No Eye Pain, No Swelling, No Redness Cardiovascular : No Chest Pain, No SOB, No Dyspnea on Exertion Respiratory : No Cough, No Sputum Gastrointestinal : No Nausea, No Vomiting, No Diarrhea, No abdominal Pain Genitourinary : No Dysuria, No Urinary Frequency, No Hematuria, Musculoskeletal : No joint pain, No Myalgias, No Joint Swelling Skin : No Skin Lesions, No rash Neuro : No Weakness, No Numbness, No Dizziness, positive Headache Psych : No Anxiety/Panic, No Depression Heme/Lymph: No Bruising, No Bleeding,No Lymphadenopathy Endocrine : No Polyuria, No Polydipsia All other systems reviewed and are negative [facility] Past Medical History Attestation statement: The following information was validated with the patient. Medical History Anxiety Asthma Depression GERD (gastroesophageal reflux disease) Hypertension Surgical History History of hip replacement Social History Social History Alcohol intake: current Alcohol intake frequency: a few times a week Alcohol type: beer and hard liquor Patient Tobacco Use Status: Never used Tobacco Use of substances other than those prescribed or required for medical reasons: No Advance Directives: No Physical Exam Vital Signs: Vital Signs: Last Vital Signs Temp 97.9 F 07/05/22 08:38 Pulse 67 07/05/22 08:38 Resp 13 07/05/22 08:38 BP 108/46 L 07/05/22 08:38 Pulse Ox 96 07/05/22 08:38 O2 Del Method 07/05/22 08:38 BMI result Body Mass Index 33.3 Appearance: Alert. Oriented X3. No acute distress. Eyes: Pupils equal, round and reactive to light. ENT: Pharynx normal. Neck: Normal inspection. Neck supple. collar in place CVS: Normal heart rate and rhythm. Pulses normal. Respiratory: No respiratory distress. Breath sounds normal. Abdomen: Soft and nontender. Skin: Skin warm and dry. Normal skin color. Normal skin turgor. Extremities: No lower extremity edema. No calf ttp full ROM of both hips and shoulders denies pain Neuro: Oriented X 3. No motor deficit. No sensory deficit. Course Course Course Narrative: CT head and cspine negative states he feels better and wants to go home chronically low plt counts - spoke to patient about this to follow up with primary care doctor will refer to case management as outpatient as he doesn't know his primary care doctor - he was told to avoid aspirin MDM - Fall MDM Narrative Medical decision making narrative: 67 yo male with hx of HTN, falls here with mechanical fall after tripping on [employer] package. No preceding CP/SOB. At this time will need CT head/cspine for trauma. Basic labs including CPK. Dispo per results and findings. Lab Data Result diagrams: 07/05/22 07:28 07/05/22 07:28 Labs: Lab Results 07/05/22 07/05/22 Range/Units 07:28 07:28 WBC 3.1 L (4.8-10.8) X10*3/uL RBC 3.86 L (4.60-5.80) X10*6/uL Hgb 12.4 L (14.0-18.0) g/dl Hct 36.6 L (42.0-52.0) % MCV 94.8 (80.0-98.0) fL MCH 32.1 (27.0-33.0) pg MCHC 33.9 (31.0-36.0) g/dl RDW 13.1 (11.0-16.0) % Plt Count 56 L D (160-400) X10*3/uL MPV 9.5 (9.4-12.4) fL Immature Gran % (Auto) 0.3 (0.0-0.4) % Neut % (Auto) 40.2 L (45-73) % Lymph % (Auto) 36.9 (20-40) % [place] % (Auto) 16.8 H (2-11) % Eos % (Auto) 5.2 H (0-4) % Baso % (Auto) 0.6 (0-2) % Lymph # (Auto) 1.1 L (1.2-4.9) X10*3/uL [place] # (Auto) 0.5 (0.1-1.2) X10*3/uL Eos # (Auto) 0.2 (0.0-0.4) X10*3/uL Baso # (Auto) 0.0 (0.0-0.2) X10*3/uL Abs Immat Gran (auto) 0.01 (0.00-0.03) X10*3/uL Absolute Neuts (auto) 1.2 L (2.0-8.3) x10*3/uL Absolute Nucleated RBC 0.000 (0.0-0.012) X10*3/uL Nucleated RBC % (auto) 0.0 (0.0-0.2) /100WBC Sodium 139 (135-145) mmol/L Potassium 5.0 (3.3-5.1) mmol/L Chloride 96 (96-108) mmol/L Carbon Dioxide 30 H (22-29) mmol/L Anion Gap 18 (12-20) BUN 13 (9-16) mg/dL Creatinine 0.83 (0.5-1.4) mg/dL Estim Creat Clear Calc 119.4 Estimated GFR > 60 Random Glucose 109 (60-115) mg/dL Calcium 9.5 (8.4-10.2) mg/dL Magnesium 1.6 (1.6-2.6) mg/dL Total Creatine Kinase 101 (38-174) U/L Discharge Plan Discharge Clinical Impression: Fall Qualifiers: Encounter type: initial encounter Qualified Code(s): W19.XXXA - Unspecified fall, initial encounter Head injury Qualifiers: Encounter type: initial encounter Qualified Code(s): S09.90XA - Unspecified injury of head, initial encounter Patient Disposition: Home, Self-Care Instructions: Head Injury (ED), Fall Prevention (ED) Additional Instructions: return to ED for any worsening symptoms or concerns no acute trauma to head or cspine on CT scans Prescriptions: No Action cyclobenzaprine 10 mg tablet 10 mg PO TID PRN (Reason: muscle spasm) Qty: 12 0RF hydrocodone-acetaminophen [[place]] 5-325 mg tablet 1 tab PO Q6H PRN (Reason: pain) Qty: 10 0RF Rx Instructions: for 3 days doxycycline monohydrate 100 mg tablet 100 mg PO BID Qty: 20 0RF mupirocin 2 % ointment 1 appl topical DAILY Qty: 22 0RF cyclobenzaprine 10 mg tablet 10 mg PO TID PRN (Reason: muscle spasm) Qty: 14 0RF lidocaine 4 % adhesive patch,medicated 1 patch topical DAILY PRN (Reason: pain) Qty: 10 0RF Rx Instructions: may leave on for up to 12 hrs Interventions: ED Discharge Assessment Last Done: 07/05/22 09:29 Discharge Date/Time: 07/05/22 10:10
[2022-07-05 06:57] VITALS: BP 128/71; PULSE 65; RESP 13; TEMP 37; O2SAT 97
[2022-07-05 07:33] LABS: Basophils Percent Auto 0.6 % (0-2); Eosinophils Absolute Auto 0.2 X10*3/uL (0.0-0.4); Eosinophils Percent Auto 5.2 % (0-4); Hematocrit 36.6 % (42.0-52.0); Hemoglobin 12.4 g/dl (14.0-18.0); Imm Gran Abs Auto 0.01 X10*3/uL (0.00-0.03); Imm Gran Pct Auto 0.3 % (0.0-0.4); Lymphocytes Absolute Auto 1.1 X10*3/uL (1.2-4.9); Lymphocytes Percent Auto 36.9 % (20-40); MANUAL DIFF FLAG NO; Mean Corpuscular HGB Conc 33.9 g/dl (31.0-36.0); Mean Corpuscular Hemoglobin 32.1 pg (27.0-33.0); Mean Corpuscular Volume 94.8 fL (80.0-98.0); Mean Platelet Volume 9.5 fL (9.4-12.4); Monocytes Absolute Auto 0.5 X10*3/uL (0.1-1.2); Monocytes Percent Auto 16.8 % (2-11); Neutrophils Absolute Auto 1.2 x10*3/uL (2.0-8.3); Neutrophils Percent Auto 40.2 % (45-73); Platelet Count 56 X10*3/uL (160-400); Red Blood Count 3.86 X10*6/uL (4.60-5.80); Red Cell Distribution Width 13.1 % (11.0-16.0); White Blood Count 3.1 X10*3/uL (4.8-10.8)
[2022-07-05 07:53] LABS: Anion Gap 18 (12-20); Blood Urea Nitrogen 13 mg/dL (9-16); Calcium 9.5 mg/dL (8.4-10.2); Carbon Dioxide 30 mmol/L (22-29); Chloride 96 mmol/L (96-108); Creatinine Clr Calc Pharmacy 119.4; Estimated Glomerular Filt Rate > 60; Glucose Random 109 mg/dL (60-115); Sodium 139 mmol/L (135-145)
[2022-07-05 08:38] VITALS: BP 108/46; PULSE 67; RESP 13; TEMP 36.6; O2SAT 96
[2022-07-05 08:47] LABS: Magnesium 1.6 mg/dL (1.6-2.6)
--- NOTE | 2022-07-05 10:07 | PC.NURSE ---
LYFT ARRANGED BY CASE MANAGEMENT, PT ASSISTED TO WAITING ROOM TO WAIT RIDE
--- NOTE | 2022-07-07 11:44 | MHC.CM.ED ---
Addendum entered by Carrie Alcala 07/07/22 13:45: Patient accepted by [facility]. Addendum entered by Carrie Alcala 07/07/22 13:26: Patient's insurance is [employer]. [facility] is not contracted with [employer]. PAT referral broadcasted in [facility] at this time. Original Note: Received case management consult over the weekend. Patient's PCP is Al Ma. Patient has been active with [facility] in the past. Referral made in [facility]. [facility] is able to accept patient.
--- NOTE | 2022-07-07 15:01 | MHC.CM.ED ---
Received notification from [facility] that patient has [facility]. They provide their own ch[facility] services.
== END 2022-07-05 10:10 | disposition home or self-care (01) ==
PROVIDERS: Emergency Provider Emergency Medicine
DX: S09.90XA Unspecified injury of head, initial encounter (principal); W01.0XXA Fall on same level from slipping, tripping and stumbling without subsequent striking against object, initial encounter; Y93.89 Activity, other specified; Y92.039 Unspecified place in apartment as the place of occurrence of the external cause; Y99.9 Unspecified external cause status
CPT/HCPCS: 36415; 70450; 72125; 80048; 82550; 83735; 85025; 99284

== ENCOUNTER 2025-03-29 17:08 | Outpatient (BNV) | payer OTHER, MEDICARE, SELFPAY | END 2025-03-30 14:30 | PROVIDERS: Admitting Provider Psychiatry & Neurology Psychiatry; PCP General Practice; Visit Provider Internal Medicine Cardiovascular Disease | DX: I44.0 Atrioventricular block, first degree (principal) | CPT/HCPCS: 93010 ==

== ENCOUNTER 2025-03-29 17:08 | Inpatient (IN) | payer MEDICARE, SELFPAY ==
[2025-03-29 18:02] VITALS: BP 116/59; PULSE 68; RESP 16; TEMP 36.4; O2SAT 97
--- NOTE | 2025-03-29 18:57 | PC.NURSE ---
Admitted 69 year old male from the [facility]. He resides at the [facility], he was having lunch with his friend and he had 3 vodka tonics ( he hadn't been drinking in months) when he got up he tripped over his walker and fell. While in the Er he told the staff that he was having thoughts of ending his life. He has lost approx 6 friends over the past year. During our interview he admitted that he has paranoia and thinks people are talking about him, he also hears his passed neice talking to him.He continues to have passive suicidal thoughts, but is able to contract for safety. He uses reading glasses and doesn't have any dentures. Occasionaly has constipation. He has restless leg syndrome which is a very large stressor for him and would like to get this under control. On his right lower leg he has vascular wounds that are crusty and moist. His right outer ankle has a large area that is also crusty and moist. right great toe has a open area on the bottom. These were all covered with DCD. Left foot is dry with callus area on the outter ball of his foot.
[2025-03-29 19:58] VITALS: BMI 25.4
[2025-03-29] MEDS: traZODone HCL 50 MG TABLET PO ×2 (21:26→23:58)
[2025-03-29] MEDS: Mirtazapine 15 MG TABLET PO (21:26)
[2025-03-29] MEDS: LORazepam 1 MG TABLET PO (21:26)
[2025-03-29] MEDS: QUEtiapine Fumarate 50 MG TABLET 150 MG PO (21:26)
[2025-03-29] MEDS: hydrOXYzine HCL 50 MG TABLET PO (21:26)
--- NOTE | 2025-03-30 | ECG_ITS ---
Test Reason : ck qt Blood Pressure : */* mmHG Vent. Rate : 89 BPM Atrial Rate : 89 BPM P-R Int : 264 ms QRS Dur : 76 ms QT Int : 364 ms P-R-T Axes : 61 8 45 degrees QTcB Int : 442 ms Sinus rhythm with 1st degree A-V block Otherwise normal ECG When compared with ECG of 20-May-2022 07:42, Vent. rate has increased by 29 bpm Referred By: Aleah Hicks Electronically Signed By: NADIA HAJI MD
[2025-03-30] MEDS: Omeprazole 20 MG CAPSULE.DR PO (06:17)
[2025-03-30 08:00] VITALS: BP 97/56; PULSE 94; RESP 16; TEMP 36.4; O2SAT 98
[2025-03-30] MEDS: Naltrexone HCl 50 MG TABLET PO (08:57)
[2025-03-30] MEDS: Cholecalciferol (Vitamin D3) 25 MCG TABLET 50 MCG PO (08:57)
[2025-03-30] MEDS: Sertraline HCL 50 MG TABLET 150 MG PO (08:58)
[2025-03-30] MEDS: QUEtiapine Fumarate 50 MG TABLET 150 MG PO (08:59)
[2025-03-30] MEDS: Folic Acid 1 MG TABLET PO (08:59)
[2025-03-30] MEDS: Atorvastatin Calcium 80 MG TABLET PO (09:00)
[2025-03-30] MEDS: Pyridoxine HCl (Vitamin B6) 50 MG TABLET PO (09:00)
[2025-03-30] MEDS: lamoTRIgine 25 MG TABLET PO (09:00)
[2025-03-30 09:01] VITALS: BP 112/89; PULSE 83
[2025-03-30] MEDS: Metoprolol Succinate ER 50 MG TAB.ER.24H PO (09:01)
[2025-03-30] MEDS: Thiamine HCL 100 MG TABLET PO (09:01)
[2025-03-30 09:19] LABS: Estimated Average Glucose 137 mg/dL; Hemoglobin A1C 157.6711 umol/L; Hemoglobin A1c % 6.4 % (<6.0); Total Hemoglobin (HGBA1C) 3384.4552 umol/L
[2025-03-30 09:32] LABS: Alanine Aminotransferase 31 U/L (0-40); Albumin Level 4.2 g/dL (3.5-5.0); Alkaline Phosphatase 113 U/L (39-117); Anion Gap 14 (12-20); Aspartate Amino Transferase 38 U/L (5-37); Bilirubin Total 0.4 mg/dL (0.0-1.0); Blood Urea Nitrogen 17 mg/dL (9-16); Calcium 9.8 mg/dL (8.4-10.2); Carbon Dioxide 27 mmol/L (22-29); Chloride 103 mmol/L (96-108); Cholesterol 123 mg/dL (<200); Creatinine Clr Calc Pharmacy 85.2; Estimated Glomerular Filt Rate > 60; Glucose Random 194 mg/dL (60-115); HDL Cholesterol 30 mg/dL (>40); LDL Cholesterol Calculated 60 mg/dL (<100); Potassium 4.1 mmol/L (3.3-5.1); Sodium 140 mmol/L (135-145); Total Protein 8.4 g/dL (6.5-8.0); Triglycerides 168 mg/dL (<150)
[2025-03-30 09:41] LABS: Thyroid Stimulating Hormone 4.26 uIU/mL (0.32-4.0)
--- NOTE | 2025-03-30 11:25 | P.CONHOSP_ITS ---
History of Present Illness Data of Consult Service Date: 03/30/25 Primary Care Provider: Mustapha Beyer MD [facility] Reason for consult: medical H and P 69-year-old male with medical history of AFib, alcohol use disorder, Riggs's esophagus, bipolar disorder, chronic airway obstruction, type 2 diabetes, hypertension, GERD, hypothyroidism, restless leg syndrome who was admitted to [facility] after he fell and tripped over his walker. He had alcohol just prior to his fall when he went out with a friend. While he was in the ED he reported that he was having thoughts of ending his life. He is admitted to inpatient [facility] for follow-up psychiatric care. He reports a history of restless legs, and right lower extremity vascular wounds. Head CT was negative cervical spine CT negative chest x-ray was negative. Blood work was unremarkable. He reports that he has been having severe problems with restless legs syndrome, has been seen by Neurology on several occasions and has had more than 1 medication trial. Patient has multiple lower extremity wounds. He reports they have been present for a few months. Prior to admit he had VNA services. Reports that he had significant itching, for which he scratched his legs and created some of the wounds. He has a history of restless legs syndrome which has been problematic for him. Some areas of redness present to left lateral ankle. On exam he is alert and conversant, offers medical history. He denies any shortness of breath, chest pain, dizziness lightheadedness or any other concerning symptoms. Review of Systems 2 Review of Systems: Denies any shortness of breath, chest pain, dizziness, lightheadedness, abdominal pain or discomfort, nausea vomiting or diarrhea. Pain and restlessness and bilateral legs PMFSH Medical History Anxiety Asthma Depression GERD (gastroesophageal reflux disease) Hypertension Surgical History History of hip replacement Social History Household Members: None Housing: Assisted Living Facility Do you presently have visiting nurse or other home services: No Alcohol intake: current Alcohol intake frequency: a few times a week Alcohol type: beer and hard liquor Patient Tobacco Use Status: Former Tobacco user Currently Displaying Signs/Symptoms of Drug Intoxication Withdrawal: No Have you been hit, kicked, punched, or otherwise hurt by someone within the past year? If so, by whom?: No Do you feel safe in your current relationship?: No Current Relationship Advance Directives: No Advance Directives Information Provided: Yes Do you have thoughts of harming others: None Do you have a plan to hurt others: No Plan Recently lost weight without trying: Unsure Poor oral hygiene: No service: No Sexual orientation: Straight/Heterosexual Meds Allergies Allergy/AdvReac Type Severity Reaction Status Date / Time No Known Allergies Allergy Verified 09/25/20 09:06 Active Medications: Current Medications Acetaminophen (Acetaminophen 325 Mg Tablet) 650 mg PO Q6H PRN PRN Reason: Headache/Pain, Scale 1-10 Al Hydroxide/Mg Hydroxide (Magnesium Hydrox/Alum Hydrox 30 Ml Oral.Susp) 30 ml PO Q6H PRN PRN Reason: Heartburn/Nausea Atorvastatin Calcium (Atorvastatin Calcium 80 Mg Tablet) 80 mg PO DAILY [facility] Last Admin: 03/30/25 09:00 Dose: 80 mg Folic Acid (Folic Acid 1 Mg Tablet) 1 mg PO DAILY [facility] Last Admin: 03/30/25 08:59 Dose: 1 mg Hydroxyzine HCl (Hydroxyzine Hcl 50 Mg Tablet) 50 mg PO BID PRN PRN Reason: Anxiety Last Admin: 03/29/25 21:26 Dose: 50 mg Lamotrigine (Lamotrigine 25 Mg Tablet) 25 mg PO DAILY [facility] Last Admin: 03/30/25 09:00 Dose: 25 mg Lorazepam (Lorazepam 1 Mg Tablet) 1 mg PO BEDTIME [facility] Last Admin: 03/29/25 21:26 Dose: 1 mg Magnesium Hydroxide (Milk Of Magnesia 30 Ml Oral.Susp) 30 ml PO DAILY PRN PRN Reason: Constipation Metoprolol Succinate (Metoprolol Succinate Er 50 Mg Tab.Er.24h) 50 mg PO DAILY [facility]; Protocol Last Admin: 03/30/25 09:01 Dose: 50 mg Mirtazapine (Mirtazapine 15 Mg Tablet) 15 mg PO BEDTIME [facility] Last Admin: 03/29/25 21:26 Dose: 15 mg Naltrexone HCl (Naltrexone Hcl 50 Mg Tablet) 50 mg PO DAILY [facility] Last Admin: 03/30/25 08:57 Dose: 50 mg Omeprazole (Omeprazole 20 Mg Capsule.Dr) 20 mg PO DAILY@30 [facility] Last Admin: 03/30/25 06:17 Dose: 20 mg Pyridoxine HCl (Pyridoxine Hcl (Vitamin B6) 50 Mg Tablet) 50 mg PO DAILY [facility] Last Admin: 03/30/25 09:00 Dose: 50 mg Quetiapine Fumarate (Quetiapine Fumarate 50 Mg Tablet) 150 mg PO BID [facility] Last Admin: 03/30/25 08:59 Dose: 150 mg Sertraline HCl (Sertraline Hcl 50 Mg Tablet) 150 mg PO DAILY [facility] Last Admin: 03/30/25 08:58 Dose: 150 mg Thiamine HCl (Thiamine Hcl 100 Mg Tablet) 100 mg PO DAILY [facility] Last Admin: 03/30/25 09:01 Dose: 100 mg Trazodone HCl (Trazodone Hcl 50 Mg Tablet) 50 mg PO BEDTIME MRX1 PRN PRN Reason: Insomnia Last Admin: 03/29/25 23:58 Dose: 50 mg Vitamin D (Cholecalciferol (Vitamin D3) 25 Mcg Tablet) 50 mcg PO DAILY [facility] Last Admin: 03/30/25 08:57 Dose: 50 mcg Home Medications ?Medication ?Instructions ?Recorded ?Confirmed ?Last Taken ?Type cholecalciferol (vitamin D3) 50 50 mcg PO DAILY 03/29/25 03/29/25 Unknown History mcg (2,000 unit) tablet cyanocobalamin (vitamin B-12) 500 PO 03/29/25 Unknown History mcg tablet folic acid 1 mg tablet 1 mg PO DAILY 03/29/25 03/29/25 Unknown History hydroxyzine HCl 50 mg tablet 50 mg PO NEEDED 03/29/25 03/29/25 Unknown History lamotrigine 25 mg tablet 25 mg PO DAILY 03/29/25 03/29/25 Unknown History levothyroxine 75 mcg tablet PO 03/29/25 Unknown History levothyroxine 75 mcg tablet PO 03/29/25 Unknown History lorazepam 1 mg tablet 1 mg PO BEDTIME 03/29/25 03/29/25 Unknown History metoprolol succinate 50 mg 50 mg PO DAILY 03/29/25 03/29/25 Unknown History tablet,extended release 24 hr mirtazapine 15 mg tablet 15 mg PO BEDTIME 03/29/25 03/29/25 Unknown History naltrexone 50 mg tablet 50 mg PO DAILY 03/29/25 03/29/25 Unknown History pantoprazole 40 mg tablet,delayed 40 mg PO DAILY 03/29/25 03/29/25 Unknown History release pyridoxine (vitamin B6) 50 mg 50 mg PO DAILY 03/29/25 03/29/25 Unknown History tablet (Vitamin B-6) quetiapine 100 mg tablet PO 03/29/25 Unknown History quetiapine 300 mg tablet,extended 300 mg PO BEDTIME 03/29/25 03/29/25 Unknown History release 24 hr ropinirole 0.5 mg tablet PO BID 03/29/25 Unknown History rosuvastatin 20 mg tablet 20 mg PO BEDTIME 03/29/25 03/29/25 Unknown History sertraline 50 mg tablet 150 mg PO DAILY 03/29/25 03/29/25 Unknown History thiamine HCl (vitamin B1) 100 mg 100 mg PO DAILY 03/29/25 03/29/25 Unknown History tablet trazodone 100 mg tablet PO 03/29/25 Unknown History Physical Exam 2 Vital Signs and Narrative: Vital Signs: Last Vital Signs Temp 97.6 F 03/30/25 08:00 Pulse 83 03/30/25 09:01 Resp 16 03/30/25 08:00 BP 112/89 03/30/25 09:01 Pulse Ox 98 03/30/25 08:00 O2 Del Method Room Air 03/30/25 08:00 BMI result Body Mass Index 25.4 Alert and oriented X3, able to give good history. Neuro: CN II-X11 intact, no deficits, visual acuity intact EYES: PERRLA, EOM intact ENT: hearing intact, uvula midline, lips moist Cardiac: S1 S2 RRR, no edema in Lower ext Pulmonary: lungs clear to auscultation, No increased WOB. Abdominal: BS active in all 4 quadrants, no guarding or tenderness MSK: Strength 5/5 upper and lower extremities : No bladder distension Extremities: no edema in lower extremities, PT and DP pulses palpable +2. Redness of the left lateral ankle. Areas of left great toe plantar region Multiple open areas to left leg on the lateral ankle and dorsal foot. Right lower rogers and right great toe Psych: mood stable, judgement and insight good Skin: Warm and dry, Intact Results Labs 03/30/25 08:42 Labs: Laboratory Results - last 24 hr 03/30/25 08:42 Anion Gap 14 Estim Creat Clear Calc 85.2 Estimated GFR > 60 Random Glucose 194 H Estimat Average Glucose 137 Hemoglobin A1c % 6.4 H Calcium 9.8 Total Bilirubin 0.4 AST 38 H ALT 31 Alkaline Phosphatase 113 Total Protein 8.4 H Albumin 4.2 Triglycerides 168 H Cholesterol 123 LDL Cholesterol, Calc 60 HDL Cholesterol 30 L TSH 4.26 H Free T4 1.00 Assessment and Plan (1) Restless leg syndrome: Status: Acute Plan Depression/SI/alcohol use disorder/Bipolar DO Continue treatment plan per psychiatric team Hypertension/hyperlipidemia Continue clonidine 0.1 mg b.i.d. Continue atorvastatin 80 mg daily Hypothyroidism Continue levothyroxine Recent TSH 4.26 free T4 within normal limits Restless leg syndrome Has been problematic for patient Continue Requip 0.5 b.i.d. Will increase Gabapentin to 300 b.i.d. Continue iron and vitamin C, check iron studies. Type 2 diabetes Recent A1c 6.4 Consistent carb diet. History of AFib Rate controlled with metoprolol succinate Unclear why he is on anticoagulation Chronic lower extremity wound Patient has had chronic lower extremity wounds Has been followed by VNA Seen by wound Nurse-Recommendations appreciated. Due to erythema and warmth will start course of Keflex for 10 days Continue local wound care.
--- NOTE | 2025-03-30 11:49 | HO.PSYADMNOT ---
HPI Date of Service: 03/30/25 Chief Complaint: other specified bipolar disorder Sources of Information: patient interviewed, chart reviewed and crisis/core team assessment reviewed HPI Subjective Notes: Connell Warning and Conditional Voluntary Narrative: Mr. Pearce is a 69 year-old male with hx of depression, alcohol use in early remission who was sent to [facility] ED due to increased depression and suicidality. In the ED, pt reported multiple losses in the past few years including significant other who some years ago along with other family members as well as relapsing on alcohol, falling while ambulating. Pertinent labs in the ED include CBC without leukocytosis, normocytic anemia, CMP with no electrolyte abnormalities, BUN 16, Cr 0.90, creatinine clearance 92, LFTs wnl. Utox was negative. BAL 95. EKG showed sinus rhythm with 1st degree AV block. Pt reports he has had about a month of sobriety. He reports long hx of alcohol use which has affected his relationship with family. He reports he has been feeling more depressed in the past 2-3 weeks. He reports he recently was discharged from [facility], after treatment for depression. He denies any plan or intent to harm himself. He reports hearing voice of his niece at night but reports is not bothersome. He initially denied any s/s suggestive of paranoia. Per collateral information from [facility] where he resides he becomes easily suspicious and accusatory of staff. He used to have providers through [facility] and also accused them of stealing. He reports restless legs. He has had this issue for several years. He has tried multiple medications including gabapentin, requip.He is also on other medications which can exacerbate RLS such as seroquel and even sertraline. Past Psychiatric History: Inpt: [facility] back in 2013 (similar presentation); [facility] 03/2025 (depression, SI) OP: currently prescribed by PCP Past medication trials: sertraline, risperidone, seroquel, thorazine Hx of suicide attempts: denies Medical Evaluation Reviewed: Yes [facility] Medical History Anxiety Asthma Depression GERD (gastroesophageal reflux disease) Hypertension Surgical History History of hip replacement Family History: denies Social History: Pt had partner for several years, recently during covid. No children. Substance History: Alcohol use: reports drinking about 2-3 week in the past week. Prior to that reports not using alcohol for one month. Pt denies opioid and cocaine use. Trauma History: not disclosed Diagnostics Vital Signs (24Hr): Vital Signs - 24 hr 03/29/25 18:02 03/30/25 08:00 03/30/25 09:01 Temperature 97.5 F 97.6 F Pulse Rate 68 94 83 Respiratory Rate 16 16 Blood Pressure 116/59 L 97/56 L 112/89 Pulse Oximetry 97 98 Oxygen Delivery Method Room Air Room Air BMI result Body Mass Index 25.4 Labs 03/30/25 08:42 Labs: Laboratory Results - last 48 hr 03/30/25 08:42 Sodium 140 Potassium 4.1 Chloride 103 Carbon Dioxide 27 Anion Gap 14 BUN 17 H Creatinine 0.99 Estim Creat Clear Calc 85.2 Estimated GFR > 60 Random Glucose 194 H Estimat Average Glucose 137 Hemoglobin A1c % 6.4 H Calcium 9.8 Total Bilirubin 0.4 AST 38 H ALT 31 Alkaline Phosphatase 113 Total Protein 8.4 H Albumin 4.2 Triglycerides 168 H Cholesterol 123 LDL Cholesterol, Calc 60 HDL Cholesterol 30 L TSH 4.26 H Free T4 1.00 Meds/Allergies Meds Home Medications ?Medication ?Instructions ?Recorded ?Confirmed ?Type cholecalciferol (vitamin D3) 50 50 mcg PO DAILY 03/29/25 03/29/25 History mcg (2,000 unit) tablet cyanocobalamin (vitamin B-12) 500 PO 03/29/25 History mcg tablet folic acid 1 mg tablet 1 mg PO DAILY 03/29/25 03/29/25 History hydroxyzine HCl 50 mg tablet 50 mg PO NEEDED 03/29/25 03/29/25 History lamotrigine 25 mg tablet 25 mg PO DAILY 03/29/25 03/29/25 History levothyroxine 75 mcg tablet PO 03/29/25 History levothyroxine 75 mcg tablet PO 03/29/25 History lorazepam 1 mg tablet 1 mg PO BEDTIME 03/29/25 03/29/25 History metoprolol succinate 50 mg 50 mg PO DAILY 03/29/25 03/29/25 History tablet,extended release 24 hr mirtazapine 15 mg tablet 15 mg PO BEDTIME 03/29/25 03/29/25 History naltrexone 50 mg tablet 50 mg PO DAILY 03/29/25 03/29/25 History pantoprazole 40 mg tablet,delayed 40 mg PO DAILY 03/29/25 03/29/25 History release pyridoxine (vitamin B6) 50 mg 50 mg PO DAILY 03/29/25 03/29/25 History tablet (Vitamin B-6) quetiapine 100 mg tablet PO 03/29/25 History quetiapine 300 mg tablet,extended 300 mg PO BEDTIME 03/29/25 03/29/25 History release 24 hr ropinirole 0.5 mg tablet PO BID 03/29/25 History rosuvastatin 20 mg tablet 20 mg PO BEDTIME 03/29/25 03/29/25 History sertraline 50 mg tablet 150 mg PO DAILY 03/29/25 03/29/25 History thiamine HCl (vitamin B1) 100 mg 100 mg PO DAILY 03/29/25 03/29/25 History tablet trazodone 100 mg tablet PO 03/29/25 History Allergies Allergies Allergy/AdvReac Type Severity Reaction Status Date / Time No Known Allergies Allergy Verified 09/25/20 09:06 Mental Status Exam Mental Status Exam Narrative: Appearance: wearing hospital gown, fair hygiene, in NAD Behavior: calm, cooperative Psychomotor: moving of feet while in bed, no tremors. no agitation or retardation noted Speech: mostly clear, regular rate/rhythm/volume, spontaneous TP: tangential TC: wanting help with depression and RLS Mood: anxious Affect: brighter than reported mood SI: denies HI: denies VH/AH: reports voices of niece at night, but may not be psychotic in nature. He does have hx of auditory hallucinations and paranoid ideas Delusions: somewhat suspicious towards staff Insight/judgment: poor x 2. Memory/cog: alert, oriented x 3. noted gaps in memory as he is recalling medical hx and recent admission to the hospital Assessment & Plan Assessment & Plan (1) Bipolar disorder with psychotic features: Status: Acute Code(s): F31.9 - Bipolar disorder, unspecified (2) Alcohol use disorder: Status: Acute Code(s): F10.90 - Alcohol use, unspecified, uncomplicated Assessment and Plan: on naltrexon Plan Mr Pearce is a 69 year-old male with hx of Bipolar Disorder and alcohol use disorder. Pt was brought to [facility] due to increase suicidal ideation with intent to OD. He reports he recently relapsed on alcohol and has had multiple losses which are contributing to increased depression. He denies SI/HI. Although not overt delusional content, collateral information reports he is often paranoid and suspicious of staff at [facility] and previous providers from [facility]. He as day went by appeared more suspicious of staff here on the unit, thinking they were talking about him. He has severe RLS. He has tried a number of medications for this including gabapentin and requip. He is also on a number of medication are known to exacerbate RLS including seroquel and sertraline. We discussed tapering off seroquel. We can add different antipsychotic that may cause less RLS. May try rexulti, vraylar or latuda. We also discussed considering switching sertraline to effexor or cymbalta as it may provide some benefit in terms of neuropathic pain with less exacerbation on RLS. Also consider switch from metoprolol to propanolol--> however, note that EKG shows 1st degree AV block and propanolol as not selective beta jordi may have greater impact on AV blockage. Clonidine also contributes to AV block and progression. PLAN 1. Admit to S1, CV, 15 minutes check 2. d/c seroquel. 3. lower sertraline to 75mg po daily. 4. obtain collateral information 5. OT assessments- including MOCA and ACL. 6. Aftercare planning. Patient educated on: diagnosis, medication risk/benefits and substance abuse Reason for continued inpatient stay Substantial Risk for: harm to self and inability to function Statement Statement: I have reviewed the history and physical and performed a pertinent examination on my patient. No changes have occurred unless specified. If the History and Physical was not performed prior to admission, the Hospitalist's service will be consulted for completing the admission physical. Time Spent With Patient Time: Total time managing care of this patient today ____ minutes.
[2025-03-30 12:23] VITALS: BP 124/61
[2025-03-30] MEDS: cloNIDine HCL 0.1 MG TABLET PO ×2 (12:23→20:48)
[2025-03-30] MEDS: Ferrous Sulfate 324 MG TABLET.DR PO (12:58)
[2025-03-30] MEDS: Ascorbic Acid 500 MG TABLET PO (12:58)
[2025-03-30] MEDS: Levothyroxine Sodium 75 MCG TABLET PO (12:58)
[2025-03-30 13:48] VITALS: BMI 25.9
--- NOTE | 2025-03-30 16:03 | HO.WOUND ---
Wound Consult: Initial 69yr old?male admitted to [facility] on 03/29/25 on the [facility]iatric [facility]al Health Unit - See progress notes and H&P for detailed history.? Wound consult placed for Left and Right Leg wounds poa.? Patient agreeable to assessment and photo documentation.? Patient reports he is not sure how the wounds started he reports he does not have Diabetes and denies history of vascular services needs - of importance he does have strong pedal pulses and denies history of swelling. He reports he has had the wounds for approximately 4 months and he has a VNA services that comes to treat the wounds he is unsure of the topical treatment they use. He reports he has a strong history of restless leg syndrome and itching to the lower legs. He reports the itching has been absent for approximately one month. The etiology at this time remains unclear - topical treatment will consist of moist wound healing. Left Great Toe Plantar wound - pale pink moist wound bed with thickened callused wound edges - Medihoney and durafiber AG used with dry gauze. Change every other day. Left Leg Left Leg - wound beds appear to be resurfacing despite looking like open wound beds. The surrounding tissue is bright red, no induration no fluctuance and no swelling noted at this time. Treated with Durafiber and gauze dressing. Left Lateral Ankle and dorsal foot wound - scattered open areas of red moist tissue partial and full thickness tissue loss noted - macerated wound edges and periwound noted. not consistent with fungal deramtitis at this time - no bulla or vesicles noted no crusting noted. Right [place] Right 2nd toe Right leg intact with scattered scabs noted - stable and not in need of intervention evidence of prior scratching. Right 2nd toe with stable dry scab but considerable red erythema noted - provider to assess for antibiotics. Recommendations: Monitor for incontinence and moisture control, use barrier creams when needed for prevention and treatment. Provide adequate and supplemental nutrition.? Left Plantar Wound - Cleanse with saline, pat dry. ?Apply layer of Medihoney to wound bed. ?Cover with Durafibe AG (Store room # [id number] ), cover with gry gauze and secure with tape. Change every other day and PRN. Medihoney available from wound nurse ? tube left at bedside for use and additional tube left on unit. Left ankle, foot and lower leg - Cleanse with NS, Pat dry.? Apply barrier to periwound, cover wound bed with Durafiber AG, apply dry gauze and ABd pad and Elestic netting to hold in place. Change every other day. Right second toe - no topical interventions needed at this time. Re-consult wound care Nurse for wound deterioration or wound changes.
[2025-03-30 20:00] VITALS: BP 121/59; PULSE 71; RESP 18; TEMP 36.1; O2SAT 98
[2025-03-30 20:48] VITALS: BP 126/78
[2025-03-30] MEDS: Gabapentin 300 MG CAPSULE PO (20:48)
[2025-03-30] MEDS: LORazepam 1 MG TABLET PO (20:48)
[2025-03-30] MEDS: traZODone HCL 50 MG TABLET PO (22:21)
[2025-03-31] MEDS: Levothyroxine Sodium 75 MCG TABLET PO (06:27)
[2025-03-31] MEDS: Omeprazole 20 MG CAPSULE.DR PO (06:27)
[2025-03-31 08:00] VITALS: BP 109/59; PULSE 86; RESP 16; TEMP 36.6; O2SAT 92
[2025-03-31] MEDS: Cholecalciferol (Vitamin D3) 25 MCG TABLET 50 MCG PO (09:01)
[2025-03-31] MEDS: Pyridoxine HCl (Vitamin B6) 50 MG TABLET PO (09:01)
[2025-03-31] MEDS: Thiamine HCL 100 MG TABLET PO (09:01)
[2025-03-31] MEDS: Folic Acid 1 MG TABLET PO (09:01)
[2025-03-31] MEDS: Ascorbic Acid 500 MG TABLET PO (09:01)
[2025-03-31] MEDS: Sertraline HCL 25 MG TABLET 75 MG PO (09:01)
[2025-03-31] MEDS: Naltrexone HCl 50 MG TABLET PO (09:02)
[2025-03-31] MEDS: lamoTRIgine 25 MG TABLET PO (09:02)
[2025-03-31] MEDS: Ferrous Sulfate 324 MG TABLET.DR PO (09:02)
[2025-03-31 09:03] VITALS: BP 109/59
[2025-03-31] MEDS: cephALEXin 500 MG CAPSULE PO ×3 (09:18→21:29)
[2025-03-31] MEDS: Loperamide HCl 2 MG CAPSULE PO (09:18)
[2025-03-31] MEDS: rOPINIRole HCL 0.5 MG TABLET PO ×2 (09:18→21:30)
[2025-03-31] MEDS: Gabapentin 300 MG CAPSULE PO ×2 (10:22→21:30)
--- NOTE | 2025-03-31 11:37 | P.PNPSI_ITS ---
Subjective Subjective Date of Service: 04/01/25 Reason For Visit: other specified bipolar disorder Subjective Notes: Conditional Voluntary Interim History: Pt reports he slept most of the night. He denies SI/HI. He reports feeling suspicious about people working with him. He reports hearing voices of his niece, but states that is not bothering him. He reports these voices are mostly at nights. Review of Systems Review of Systems No abdominal pain. NO SOB. No chest pain Restless leg Mental Status Exam Mental Status Exam Narrative: Appearance: wearing hospital gown, fair hygiene, in NAD Behavior: calm, cooperative Psychomotor: moving of feet while in bed, no tremors. no agitation or retardation noted Speech: mostly clear, regular rate/rhythm/volume, spontaneous TP: tangential TC: wanting help with depression and RLS Mood: anxious Affect: brighter than reported mood SI: denies HI: denies VH/AH: reports voices of niece at night, but may not be psychotic in nature. He does have hx of auditory hallucinations and paranoid ideas Delusions: somewhat suspicious towards staff Insight/judgment: poor x 2. Memory/cog: alert, oriented x 3. noted gaps in memory as he is recalling medical hx and recent admission to the hospital Diagnostics Vital Signs (24Hr): Vital Signs - 24 hr 03/30/25 12:23 03/30/25 20:00 03/30/25 20:48 Temperature 96.9 F Pulse Rate 71 Respiratory Rate 18 Blood Pressure 124/61 121/59 L 126/78 Pulse Oximetry 98 Oxygen Delivery Method Room Air 03/31/25 08:00 03/31/25 09:03 Temperature 97.9 F Pulse Rate 86 Respiratory Rate 16 Blood Pressure 109/59 L 109/59 L Pulse Oximetry 92 Oxygen Delivery Method Room Air BMI result Body Mass Index 25.9 Labs 03/30/25 08:42 Labs: Laboratory Results - last 48 hr 03/30/25 08:42 Sodium 140 Potassium 4.1 Chloride 103 Carbon Dioxide 27 Anion Gap 14 BUN 17 H Creatinine 0.99 Estim Creat Clear Calc 85.2 Estimated GFR > 60 Random Glucose 194 H Estimat Average Glucose 137 Hemoglobin A1c % 6.4 H Calcium 9.8 Total Bilirubin 0.4 AST 38 H ALT 31 Alkaline Phosphatase 113 Total Protein 8.4 H Albumin 4.2 Triglycerides 168 H Cholesterol 123 LDL Cholesterol, Calc 60 HDL Cholesterol 30 L TSH 4.26 H Free T4 1.00 Medications Medications Current Medications Acetaminophen (Acetaminophen 325 Mg Tablet) 650 mg PO Q6H PRN PRN Reason: Headache/Pain, Scale 1-10 Al Hydroxide/Mg Hydroxide (Magnesium Hydrox/Alum Hydrox 30 Ml Oral.Susp) 30 ml PO Q6H PRN PRN Reason: Heartburn/Nausea Ascorbic Acid (Ascorbic Acid 500 Mg Tablet) 500 mg PO DAILY [facility] Last Admin: 03/31/25 09:01 Dose: 500 mg Atorvastatin Calcium (Atorvastatin Calcium 80 Mg Tablet) 80 mg PO BEDTIME [facility] Cephalexin HCl (Cephalexin 500 Mg Capsule) 500 mg PO Q6H [facility] Stop: 04/10/25 08:59 Last Admin: 03/31/25 09:18 Dose: 500 mg Clonidine HCl (Clonidine Hcl 0.1 Mg Tablet) 0.1 mg PO BID [facility]; Protocol Last Admin: 03/31/25 09:03 Dose: Not Given Cyanocobalamin (Cyanocobalamin (Vitamin B-12) 500 Mcg Tablet) 250 mcg PO DAILY [facility] Ferrous Sulfate (Ferrous Sulfate 324 Mg Tablet.) 324 mg PO DAILY [facility] Last Admin: 03/31/25 09:02 Dose: 324 mg Folic Acid (Folic Acid 1 Mg Tablet) 1 mg PO DAILY [facility] Last Admin: 03/31/25 09:01 Dose: 1 mg Gabapentin (Gabapentin 300 Mg Capsule) 300 mg PO BID [facility] Last Admin: 03/31/25 10:22 Dose: 300 mg Lamotrigine (Lamotrigine 25 Mg Tablet) 25 mg PO DAILY [facility] Last Admin: 03/31/25 09:02 Dose: 25 mg Levothyroxine Sodium (Levothyroxine Sodium 75 Mcg Tablet) 75 mcg PO DAILY@0700 [facility] Last Admin: 03/31/25 06:27 Dose: 75 mcg Loperamide HCl (Loperamide Hcl 2 Mg Capsule) 2 mg PO Q4H PRN PRN Reason: Loose Stool Last Admin: 03/31/25 09:18 Dose: 2 mg Lorazepam (Lorazepam 1 Mg Tablet) 1 mg PO BEDTIME [facility] Last Admin: 03/30/25 20:48 Dose: 1 mg Magnesium Hydroxide (Milk Of Magnesia 30 Ml Oral.Susp) 30 ml PO DAILY PRN PRN Reason: Constipation Naltrexone HCl (Naltrexone Hcl 50 Mg Tablet) 50 mg PO DAILY [facility] Last Admin: 03/31/25 09:02 Dose: 50 mg Omeprazole (Omeprazole 20 Mg Capsule.Dr) 20 mg PO DAILY@0630 [facility] Last Admin: 03/31/25 06:27 Dose: 20 mg Propranolol HCl (Propranolol Hcl 10 Mg Tablet) 10 mg PO TID [facility]; Protocol Pyridoxine HCl (Pyridoxine Hcl (Vitamin B6) 50 Mg Tablet) 50 mg PO DAILY [facility] Last Admin: 03/31/25 09:01 Dose: 50 mg Ropinirole HCl (Ropinirole Hcl 0.5 Mg Tablet) 0.5 mg PO BID [facility] Last Admin: 03/31/25 09:18 Dose: 0.5 mg Senna (Sennosides 8.6 Mg Tablet) 17.2 mg PO BEDTIME PRN PRN Reason: Constipation Sertraline HCl (Sertraline Hcl 25 Mg Tablet) 75 mg PO DAILY [facility] Last Admin: 03/31/25 09:01 Dose: 75 mg Thiamine HCl (Thiamine Hcl 100 Mg Tablet) 100 mg PO DAILY [facility] Last Admin: 03/31/25 09:01 Dose: 100 mg Trazodone HCl (Trazodone Hcl 50 Mg Tablet) 50 mg PO BEDTIME MRX1 PRN PRN Reason: Insomnia Last Admin: 03/30/25 22:21 Dose: 50 mg Vitamin D (Cholecalciferol (Vitamin D3) 25 Mcg Tablet) 50 mcg PO DAILY [facility] Last Admin: 03/31/25 09:01 Dose: 50 mcg Allergies Allergies Allergy/AdvReac Type Severity Reaction Status Date / Time No Known Allergies Allergy Verified 09/25/20 09:06 Assessment & Plan Assessment & Plan (1) Bipolar disorder with psychotic features: Status: Acute Code(s): F31.9 - Bipolar disorder, unspecified (2) Restless leg syndrome: Status: Acute Code(s): G25.81 - Restless legs syndrome (3) Alcohol use disorder: Status: Acute Code(s): F10.90 - Alcohol use, unspecified, uncomplicated Plan Mr Pearce is a 69 year-old male with hx of Bipolar Disorder and alcohol use disorder. Pt was brought to [facility] due to increase suicidal ideation with intent to OD. He reports he recently relapsed on alcohol and has had multiple losses which are contributing to increased depression. He denies SI/HI. Although not overt delusional content, collateral information reports he is often paranoid and suspicious of staff at [facility] and previous providers from [facility]. He as day went by appeared more suspicious of staff here on the unit, thinking they were talking about him. He has severe RLS. He has tried a number of medications for this including gabapentin and requip. He is also on a number of medication are known to exacerbate RLS including seroquel and sertraline. We discussed tapering off seroquel. We can add different antipsychotic that may cause less RLS. May try rexulti, vraylar or latuda. We also discussed considering switching sertraline to effexor or cymbalta as it may provide some benefit in terms of neuropathic pain with less exacerbation on RLS. Also consider switch from metoprolol to propanolol--> however, note that EKG shows 1st degree AV block and propanolol as not selective beta jordi may have greater impact on AV blockage. Clonidine also contributes to AV block and progression. PLAN 03/31 continue tx. Reason for continued inpatient stay Substantial Risk for: inability to function Time Spent With Patient Time: Total time managing care of this patient today ____ minutes.
[2025-03-31] MEDS: Cyanocobalamin (Vitamin B-12) 500 MCG TABLET 250 MCG PO (12:23)
[2025-03-31 14:35] VITALS: BP 127/64; PULSE 72
[2025-03-31 14:36] LABS: Iron 33 mcg/dL (45-160); Percent Iron Saturation 15 % (15-50); Total Iron Binding Capacity 219 mcg/dL (228-428); Unsaturated Iron Binding 186 ug/dL
[2025-03-31 14:49] LABS: Ferritin 281 ng/mL (20-250)
[2025-03-31] MEDS: Propranolol HCL 10 MG TABLET PO ×2 (15:02→21:30)
[2025-03-31 20:00] VITALS: BP 129/59; PULSE 69; RESP 18; TEMP 36.3; O2SAT 96
[2025-03-31] MEDS: traZODone HCL 50 MG TABLET PO (21:29)
[2025-03-31] MEDS: LORazepam 1 MG TABLET PO (21:30)
[2025-03-31] MEDS: Atorvastatin Calcium 80 MG TABLET PO (21:32)
[2025-04-01] MEDS: traZODone HCL 50 MG TABLET PO ×2 (01:00→21:02)
[2025-04-01] MEDS: cephALEXin 500 MG CAPSULE PO ×4 (02:08→21:03)
[2025-04-01] MEDS: Omeprazole 20 MG CAPSULE.DR PO (06:18)
[2025-04-01] MEDS: Levothyroxine Sodium 75 MCG TABLET PO (06:19)
[2025-04-01 08:00] VITALS: BP 123/62; PULSE 70; RESP 16; TEMP 36.8; O2SAT 96
[2025-04-01] MEDS: Ascorbic Acid 500 MG TABLET PO (09:29)
[2025-04-01] MEDS: Cyanocobalamin (Vitamin B-12) 500 MCG TABLET 250 MCG PO (09:29)
[2025-04-01] MEDS: Naltrexone HCl 50 MG TABLET PO (09:29)
[2025-04-01] MEDS: Gabapentin 300 MG CAPSULE PO ×2 (09:29→21:03)
[2025-04-01] MEDS: lamoTRIgine 25 MG TABLET PO (09:29)
[2025-04-01] MEDS: rOPINIRole HCL 0.5 MG TABLET PO ×2 (09:29→21:02)
[2025-04-01] MEDS: Propranolol HCL 10 MG TABLET PO ×3 (09:29→21:01)
[2025-04-01] MEDS: Ferrous Sulfate 324 MG TABLET.DR PO (09:30)
[2025-04-01] MEDS: Pyridoxine HCl (Vitamin B6) 50 MG TABLET PO (09:30)
[2025-04-01] MEDS: Folic Acid 1 MG TABLET PO (09:30)
[2025-04-01] MEDS: Cholecalciferol (Vitamin D3) 25 MCG TABLET 50 MCG PO (09:30)
[2025-04-01] MEDS: Sertraline HCL 25 MG TABLET 75 MG PO (09:30)
[2025-04-01] MEDS: Thiamine HCL 100 MG TABLET PO (09:30)
--- NOTE | 2025-04-01 17:34 | P.PNPSI_ITS ---
Subjective Subjective Date of Service: 04/01/25 Reason For Visit: other specified bipolar disorder Subjective Notes: Conditional Voluntary Interim History: Pt more suspicious and accusatory towards staff. He is reporting they have been talking about him and he was very upset. He signed a 3 day notice. He was calmer after and did ask for medication that helps with paranoia. We discussed starting rexulti. No SI/HI. Medication Compliance: Yes Review of Systems Review of Systems No abdominal pain. NO SOB. No chest pain Restless leg Mental Status Exam Mental Status Exam Narrative: Appearance: wearing hospital gown, fair hygiene, in NAD Behavior: calm, cooperative Psychomotor: moving of feet while in bed, no tremors. no agitation or retardation noted Speech: mostly clear, regular rate/rhythm/volume, spontaneous TP: tangential TC: wanting help with depression and RLS Mood: anxious Affect: brighter than reported mood SI: denies HI: denies VH/AH: reports voices of niece at night, but may not be psychotic in nature. He does have hx of auditory hallucinations and paranoid ideas Delusions: somewhat suspicious towards staff Insight/judgment: poor x 2. Memory/cog: alert, oriented x 3. noted gaps in memory as he is recalling medical hx and recent admission to the hospital Diagnostics Vital Signs (24Hr): Vital Signs - 24 hr 03/31/25 20:00 04/01/25 08:00 Temperature 97.4 F 98.2 F Pulse Rate 69 70 Respiratory Rate 18 16 Blood Pressure 129/59 L 123/62 Pulse Oximetry 96 96 Oxygen Delivery Method Room Air Room Air BMI result Body Mass Index 25.9 Labs 03/30/25 08:42 Labs: Laboratory Results - last 48 hr 03/31/25 12:52 Iron 33 L TIBC 219 L % Saturation 15 Unsat Iron Binding 186 Ferritin 281 H Medications Medications Current Medications Acetaminophen (Acetaminophen 325 Mg Tablet) 650 mg PO Q6H PRN PRN Reason: Headache/Pain, Scale 1-10 Al Hydroxide/Mg Hydroxide (Magnesium Hydrox/Alum Hydrox 30 Ml Oral.Susp) 30 ml PO Q6H PRN PRN Reason: Heartburn/Nausea Ascorbic Acid (Ascorbic Acid 500 Mg Tablet) 500 mg PO DAILY [facility] Last Admin: 04/01/25 09:29 Dose: 500 mg Atorvastatin Calcium (Atorvastatin Calcium 80 Mg Tablet) 80 mg PO BEDTIME [facility] Last Admin: 03/31/25 21:32 Dose: 80 mg Brexpiprazole (Brexpiprazole 1 Mg Tablet) 0.5 mg PO DAILY [facility] Cephalexin HCl (Cephalexin 500 Mg Capsule) 500 mg PO Q6H [facility] Stop: 04/10/25 08:59 Last Admin: 04/01/25 16:01 Dose: 500 mg Clonidine HCl (Clonidine Hcl 0.1 Mg Tablet) 0.1 mg PO BID [facility]; Protocol Last Admin: 03/31/25 09:03 Dose: Not Given Cyanocobalamin (Cyanocobalamin (Vitamin B-12) 500 Mcg Tablet) 250 mcg PO DAILY [facility] Last Admin: 04/01/25 09:29 Dose: 250 mcg Ferrous Sulfate (Ferrous Sulfate 324 Mg Tablet.) 324 mg PO DAILY [facility] Last Admin: 04/01/25 09:30 Dose: 324 mg Folic Acid (Folic Acid 1 Mg Tablet) 1 mg PO DAILY [facility] Last Admin: 04/01/25 09:30 Dose: 1 mg Gabapentin (Gabapentin 300 Mg Capsule) 300 mg PO BID [facility] Last Admin: 04/01/25 09:29 Dose: 300 mg Lamotrigine (Lamotrigine 25 Mg Tablet) 25 mg PO DAILY [facility] Last Admin: 04/01/25 09:29 Dose: 25 mg Levothyroxine Sodium (Levothyroxine Sodium 75 Mcg Tablet) 75 mcg PO DAILY@0700 [facility] Last Admin: 04/01/25 06:19 Dose: 75 mcg Loperamide HCl (Loperamide Hcl 2 Mg Capsule) 2 mg PO Q4H PRN PRN Reason: Loose Stool Last Admin: 03/31/25 09:18 Dose: 2 mg Lorazepam (Lorazepam 1 Mg Tablet) 1 mg PO BEDTIME [facility] Last Admin: 03/31/25 21:30 Dose: 1 mg Magnesium Hydroxide (Milk Of Magnesia 30 Ml Oral.Susp) 30 ml PO DAILY PRN PRN Reason: Constipation Naltrexone HCl (Naltrexone Hcl 50 Mg Tablet) 50 mg PO DAILY [facility] Last Admin: 04/01/25 09:29 Dose: 50 mg Omeprazole (Omeprazole 20 Mg Capsule.) 20 mg PO DAILY@0630 [facility] Last Admin: 04/01/25 06:18 Dose: 20 mg Propranolol HCl (Propranolol Hcl 10 Mg Tablet) 10 mg PO TID [facility]; Protocol Last Admin: 04/01/25 16:01 Dose: 10 mg Pyridoxine HCl (Pyridoxine Hcl (Vitamin B6) 50 Mg Tablet) 50 mg PO DAILY [facility] Last Admin: 04/01/25 09:30 Dose: 50 mg Ropinirole HCl (Ropinirole Hcl 0.5 Mg Tablet) 0.5 mg PO BID [facility] Last Admin: 04/01/25 09:29 Dose: 0.5 mg Senna (Sennosides 8.6 Mg Tablet) 17.2 mg PO BEDTIME PRN PRN Reason: Constipation Sertraline HCl (Sertraline Hcl 25 Mg Tablet) 75 mg PO DAILY [facility] Last Admin: 04/01/25 09:30 Dose: 75 mg Thiamine HCl (Thiamine Hcl 100 Mg Tablet) 100 mg PO DAILY [facility] Last Admin: 04/01/25 09:30 Dose: 100 mg Trazodone HCl (Trazodone Hcl 50 Mg Tablet) 50 mg PO BEDTIME MRX1 PRN PRN Reason: Insomnia Last Admin: 04/01/25 01:00 Dose: 50 mg Vitamin D (Cholecalciferol (Vitamin D3) 25 Mcg Tablet) 50 mcg PO DAILY [facility] Last Admin: 04/01/25 09:30 Dose: 50 mcg Allergies Allergies Allergy/AdvReac Type Severity Reaction Status Date / Time No Known Allergies Allergy Verified 09/25/20 09:06 Assessment & Plan Assessment & Plan (1) Bipolar disorder with psychotic features: Status: Acute Code(s): F31.9 - Bipolar disorder, unspecified (2) Restless leg syndrome: Status: Acute Code(s): G25.81 - Restless legs syndrome Plan Mr Pearce is a 69 year-old male with hx of Bipolar Disorder and alcohol use disorder. Pt was brought to [facility] due to increase suicidal ideation with intent to OD. He reports he recently relapsed on alcohol and has had multiple losses which are contributing to increased depression. He denies SI/HI. Although not overt delusional content, collateral information reports he is often paranoid and suspicious of staff at [facility] and previous providers from [facility]. He as day went by appeared more suspicious of staff here on the unit, thinking they were talking about him. He has severe RLS. He has tried a number of medications for this including gabapentin and requip. He is also on a number of medication are known to exacerbate RLS including seroquel and sertraline. We discussed tapering off seroquel. We can add different antipsychotic that may cause less RLS. May try rexulti, vraylar or latuda. We also discussed considering switching sertraline to effexor or cymbalta as it may provide some benefit in terms of neuropathic pain with less exacerbation on RLS. Also consider switch from metoprolol to propanolol--> however, note that EKG shows 1st degree AV block and propanolol as not selective beta jordi may have greater impact on AV blockage. Clonidine also contributes to AV block and progression. PLAN 04/01 start rexulti 0.5mg po qhs. Reason for continued inpatient stay Substantial Risk for: inability to function Time Spent With Patient Time: Total time managing care of this patient today ____ minutes.
[2025-04-01] MEDS: Brexpiprazole 1 MG TABLET 0.5 MG PO (18:39)
[2025-04-01 20:00] VITALS: BP 143/70; PULSE 71; RESP 18; TEMP 36.4; O2SAT 93
[2025-04-01 21:01] VITALS: BP 143/70; PULSE 71
[2025-04-01] MEDS: LORazepam 1 MG TABLET PO (21:03)
[2025-04-01] MEDS: Atorvastatin Calcium 80 MG TABLET PO (21:07)
[2025-04-02] MEDS: cephALEXin 500 MG CAPSULE PO ×4 (03:44→20:52)
[2025-04-02] MEDS: traZODone HCL 50 MG TABLET PO ×3 (03:45→22:42)
[2025-04-02] MEDS: Levothyroxine Sodium 75 MCG TABLET PO (05:55)
[2025-04-02] MEDS: Omeprazole 20 MG CAPSULE.DR PO (05:55)
[2025-04-02] MEDS: Cholecalciferol (Vitamin D3) 25 MCG TABLET 50 MCG PO (08:02)
[2025-04-02] MEDS: lamoTRIgine 25 MG TABLET PO (08:02)
[2025-04-02 08:03] VITALS: BP 132/71; PULSE 75; RESP 18; TEMP 36.3; O2SAT 95
[2025-04-02] MEDS: Propranolol HCL 10 MG TABLET PO ×3 (08:03→20:52)
[2025-04-02] MEDS: Gabapentin 300 MG CAPSULE PO ×2 (08:03→20:53)
[2025-04-02] MEDS: Sertraline HCL 25 MG TABLET 75 MG PO (08:03)
[2025-04-02] MEDS: Naltrexone HCl 50 MG TABLET PO (08:03)
[2025-04-02] MEDS: Ferrous Sulfate 324 MG TABLET.DR PO (08:04)
[2025-04-02] MEDS: Cyanocobalamin (Vitamin B-12) 500 MCG TABLET 250 MCG PO (08:04)
[2025-04-02] MEDS: Brexpiprazole 1 MG TABLET 0.5 MG PO (08:04)
[2025-04-02] MEDS: Pyridoxine HCl (Vitamin B6) 50 MG TABLET PO (08:04)
[2025-04-02] MEDS: Folic Acid 1 MG TABLET PO (08:04)
[2025-04-02] MEDS: Thiamine HCL 100 MG TABLET PO (08:05)
[2025-04-02] MEDS: Ascorbic Acid 500 MG TABLET PO (08:05)
[2025-04-02] MEDS: rOPINIRole HCL 0.5 MG TABLET PO ×2 (08:05→20:52)
--- NOTE | 2025-04-02 12:15 | HO.PSYCHPN ---
Subjective Subjective Date of Service: 04/02/25 Reason For Visit: other specified bipolar disorder Subjective Notes: Conditional Voluntary Interim History: Pt reports having difficulty sleeping last night. He appears slightly less suspicious or paranoid, but still. He reports RLS seems same. No SI/HI. Review of Systems Review of Systems No abdominal pain. NO SOB. No chest pain Restless leg Mental Status Exam Mental Status Exam Narrative: Appearance: wearing hospital gown, fair hygiene, in NAD Behavior: calm, cooperative Psychomotor: moving of feet while in bed, no tremors. no agitation or retardation noted Speech: mostly clear, regular rate/rhythm/volume, spontaneous TP: tangential TC: wanting help with depression and RLS Mood: anxious Affect: brighter than reported mood SI: denies HI: denies VH/AH: reports voices of niece at night, but may not be psychotic in nature. He does have hx of auditory hallucinations and paranoid ideas Delusions: somewhat suspicious towards staff Insight/judgment: poor x 2. Memory/cog: alert, oriented x 3. noted gaps in memory as he is recalling medical hx and recent admission to the hospital Diagnostics Vital Signs (24Hr): Vital Signs - 24 hr 04/01/25 20:00 04/01/25 21:01 04/02/25 08:03 Temperature 97.6 F Pulse Rate 71 71 75 Respiratory Rate 18 Blood Pressure 143/70 H 143/70 H 132/71 Pulse Oximetry 93 Oxygen Delivery Method Room Air 04/02/25 08:03 Temperature 97.3 F Pulse Rate 75 Respiratory Rate 18 Blood Pressure 132/71 Pulse Oximetry 95 Oxygen Delivery Method Room Air BMI result Body Mass Index 25.9 Labs 03/30/25 08:42 Labs: Laboratory Results - last 48 hr 03/31/25 12:52 Iron 33 L TIBC 219 L % Saturation 15 Unsat Iron Binding 186 Ferritin 281 H Medications Medications Current Medications Acetaminophen (Acetaminophen 325 Mg Tablet) 650 mg PO Q6H PRN PRN Reason: Headache/Pain, Scale 1-10 Al Hydroxide/Mg Hydroxide (Magnesium Hydrox/Alum Hydrox 30 Ml Oral.Susp) 30 ml PO Q6H PRN PRN Reason: Heartburn/Nausea Ascorbic Acid (Ascorbic Acid 500 Mg Tablet) 500 mg PO DAILY [facility] Last Admin: 04/02/25 08:05 Dose: 500 mg Atorvastatin Calcium (Atorvastatin Calcium 80 Mg Tablet) 80 mg PO BEDTIME [facility] Last Admin: 04/01/25 21:07 Dose: 80 mg Brexpiprazole (Brexpiprazole 1 Mg Tablet) 0.5 mg PO DAILY [facility] Last Admin: 04/02/25 08:04 Dose: 0.5 mg Cephalexin HCl (Cephalexin 500 Mg Capsule) 500 mg PO Q6H [facility] Stop: 04/10/25 08:59 Last Admin: 04/02/25 08:05 Dose: 500 mg Clonidine HCl (Clonidine Hcl 0.1 Mg Tablet) 0.1 mg PO BID [facility]; Protocol Last Admin: 03/31/25 09:03 Dose: Not Given Cyanocobalamin (Cyanocobalamin (Vitamin B-12) 500 Mcg Tablet) 250 mcg PO DAILY [facility] Last Admin: 04/02/25 08:04 Dose: 250 mcg Ferrous Sulfate (Ferrous Sulfate 324 Mg Tablet.) 324 mg PO DAILY [facility] Last Admin: 04/02/25 08:04 Dose: 324 mg Folic Acid (Folic Acid 1 Mg Tablet) 1 mg PO DAILY [facility] Last Admin: 04/02/25 08:04 Dose: 1 mg Gabapentin (Gabapentin 300 Mg Capsule) 300 mg PO BID [facility] Last Admin: 04/02/25 08:03 Dose: 300 mg Lamotrigine (Lamotrigine 25 Mg Tablet) 25 mg PO DAILY [facility] Last Admin: 04/02/25 08:02 Dose: 25 mg Levothyroxine Sodium (Levothyroxine Sodium 75 Mcg Tablet) 75 mcg PO DAILY@0700 [facility] Last Admin: 04/02/25 05:55 Dose: 75 mcg Loperamide HCl (Loperamide Hcl 2 Mg Capsule) 2 mg PO Q4H PRN PRN Reason: Loose Stool Last Admin: 03/31/25 09:18 Dose: 2 mg Lorazepam (Lorazepam 1 Mg Tablet) 1 mg PO BEDTIME [facility] Last Admin: 04/01/25 21:03 Dose: 1 mg Magnesium Hydroxide (Milk Of Magnesia 30 Ml Oral.Susp) 30 ml PO DAILY PRN PRN Reason: Constipation Naltrexone HCl (Naltrexone Hcl 50 Mg Tablet) 50 mg PO DAILY [facility] Last Admin: 04/02/25 08:03 Dose: 50 mg Omeprazole (Omeprazole 20 Mg Capsule.Dr) 20 mg PO DAILY@0630 [facility] Last Admin: 04/02/25 05:55 Dose: 20 mg Propranolol HCl (Propranolol Hcl 10 Mg Tablet) 10 mg PO TID [facility]; Protocol Last Admin: 04/02/25 08:03 Dose: 10 mg Pyridoxine HCl (Pyridoxine Hcl (Vitamin B6) 50 Mg Tablet) 50 mg PO DAILY [facility] Last Admin: 04/02/25 08:04 Dose: 50 mg Ropinirole HCl (Ropinirole Hcl 0.5 Mg Tablet) 0.5 mg PO BID [facility] Last Admin: 04/02/25 08:05 Dose: 0.5 mg Senna (Sennosides 8.6 Mg Tablet) 17.2 mg PO BEDTIME PRN PRN Reason: Constipation Sertraline HCl (Sertraline Hcl 25 Mg Tablet) 75 mg PO DAILY [facility] Last Admin: 04/02/25 08:03 Dose: 75 mg Thiamine HCl (Thiamine Hcl 100 Mg Tablet) 100 mg PO DAILY [facility] Last Admin: 04/02/25 08:05 Dose: 100 mg Trazodone HCl (Trazodone Hcl 50 Mg Tablet) 50 mg PO BEDTIME MRX1 PRN PRN Reason: Insomnia Last Admin: 04/02/25 03:45 Dose: 50 mg Vitamin D (Cholecalciferol (Vitamin D3) 25 Mcg Tablet) 50 mcg PO DAILY [facility] Last Admin: 04/02/25 08:02 Dose: 50 mcg Allergies Allergies Allergy/AdvReac Type Severity Reaction Status Date / Time No Known Allergies Allergy Verified 09/25/20 09:06 Assessment & Plan Assessment & Plan (1) Bipolar disorder with psychotic features: Status: Acute Code(s): F31.9 - Bipolar disorder, unspecified (2) Restless leg syndrome: Status: Acute Code(s): G25.81 - Restless legs syndrome Plan Mr Pearce is a 69 year-old male with hx of Bipolar Disorder and alcohol use disorder. Pt was brought to [facility] due to increase suicidal ideation with intent to OD. He reports he recently relapsed on alcohol and has had multiple losses which are contributing to increased depression. He denies SI/HI. Although not overt delusional content, collateral information reports he is often paranoid and suspicious of staff at [facility] and previous providers from [facility]. He as day went by appeared more suspicious of staff here on the unit, thinking they were talking about him. He has severe RLS. He has tried a number of medications for this including gabapentin and requip. He is also on a number of medication are known to exacerbate RLS including seroquel and sertraline. We discussed tapering off seroquel. We can add different antipsychotic that may cause less RLS. May try rexulti, vraylar or latuda. We also discussed considering switching sertraline to effexor or cymbalta as it may provide some benefit in terms of neuropathic pain with less exacerbation on RLS. Also consider switch from metoprolol to propanolol--> however, note that EKG shows 1st degree AV block and propanolol as not selective beta jordi may have greater impact on AV blockage. Clonidine also contributes to AV block and progression. PLAN 04/01 start rexulti 0.5mg po qhs. 04/02 will add trazodone 50mg po qhs, magnesium citrate 400mg po qhs for sleep. Reason for continued inpatient stay Substantial Risk for: inability to function Time Spent With Patient Time: Total time managing care of this patient today ____ minutes.
[2025-04-02 15:04] VITALS: BP 133/81; PULSE 70
[2025-04-02 20:00] VITALS: BP 141/65; PULSE 71; TEMP 36.3; O2SAT 93
[2025-04-02] MEDS: Atorvastatin Calcium 80 MG TABLET PO (20:52)
[2025-04-02] MEDS: Magnesium Oxide 400 MG TABLET PO (20:52)
[2025-04-02] MEDS: LORazepam 1 MG TABLET PO (20:53)
--- NOTE | 2025-04-02 21:43 | P.PNPSI_ITS ---
Subjective Subjective Date of Service: 04/02/25 Reason For Visit: other specified bipolar disorder Subjective Notes: Conditional Voluntary Interim History: Pt reports having difficulty sleeping last night. He appears slightly less suspicious or paranoid, but still reports people were talking about him and he does not feel comfortable. He reports RLS seems same. No SI/HI. Review of Systems Review of Systems No abdominal pain. NO SOB. No chest pain Restless leg Mental Status Exam Mental Status Exam Narrative: Appearance: wearing hospital gown, fair hygiene, in NAD Behavior: calm, cooperative Psychomotor: moving of feet while in bed, no tremors. no agitation or retardation noted Speech: mostly clear, regular rate/rhythm/volume, spontaneous TP: tangential TC: wanting help with depression and RLS Mood: anxious Affect: brighter than reported mood SI: denies HI: denies VH/AH: reports voices of niece at night, but may not be psychotic in nature. He does have hx of auditory hallucinations and paranoid ideas Delusions: somewhat suspicious towards staff Insight/judgment: poor x 2. Memory/cog: alert, oriented x 3. noted gaps in memory as he is recalling medical hx and recent admission to the hospital Diagnostics Vital Signs (24Hr): Vital Signs - 24 hr 04/02/25 08:03 04/02/25 08:03 04/02/25 15:04 Temperature 97.3 F Pulse Rate 75 75 70 Respiratory Rate 18 Blood Pressure 132/71 132/71 133/81 Pulse Oximetry 95 Oxygen Delivery Method Room Air 04/02/25 20:00 Temperature 97.3 F Pulse Rate 71 Respiratory Rate Blood Pressure 141/65 H Pulse Oximetry 93 Oxygen Delivery Method Room Air BMI result Body Mass Index 25.9 Labs 03/30/25 08:42 Medications Medications Current Medications Acetaminophen (Acetaminophen 325 Mg Tablet) 650 mg PO Q6H PRN PRN Reason: Headache/Pain, Scale 1-10 Al Hydroxide/Mg Hydroxide (Magnesium Hydrox/Alum Hydrox 30 Ml Oral.Susp) 30 ml PO Q6H PRN PRN Reason: Heartburn/Nausea Ascorbic Acid (Ascorbic Acid 500 Mg Tablet) 500 mg PO DAILY [facility] Last Admin: 04/02/25 08:05 Dose: 500 mg Atorvastatin Calcium (Atorvastatin Calcium 80 Mg Tablet) 80 mg PO BEDTIME [facility] Last Admin: 04/02/25 20:52 Dose: 80 mg Brexpiprazole (Brexpiprazole 1 Mg Tablet) 0.5 mg PO DAILY [facility] Last Admin: 04/02/25 08:04 Dose: 0.5 mg Cephalexin HCl (Cephalexin 500 Mg Capsule) 500 mg PO Q6H [facility] Stop: 04/10/25 08:59 Last Admin: 04/02/25 20:52 Dose: 500 mg Cyanocobalamin (Cyanocobalamin (Vitamin B-12) 500 Mcg Tablet) 250 mcg PO DAILY [facility] Last Admin: 04/02/25 08:04 Dose: 250 mcg Ferrous Sulfate (Ferrous Sulfate 324 Mg Tablet.) 324 mg PO DAILY [facility] Last Admin: 04/02/25 08:04 Dose: 324 mg Folic Acid (Folic Acid 1 Mg Tablet) 1 mg PO DAILY [facility] Last Admin: 04/02/25 08:04 Dose: 1 mg Gabapentin (Gabapentin 300 Mg Capsule) 300 mg PO BID [facility] Last Admin: 04/02/25 20:53 Dose: 300 mg Lamotrigine (Lamotrigine 25 Mg Tablet) 25 mg PO DAILY [facility] Last Admin: 04/02/25 08:02 Dose: 25 mg Levothyroxine Sodium (Levothyroxine Sodium 75 Mcg Tablet) 75 mcg PO DAILY@0700 [facility] Last Admin: 04/02/25 05:55 Dose: 75 mcg Loperamide HCl (Loperamide Hcl 2 Mg Capsule) 2 mg PO Q4H PRN PRN Reason: Loose Stool Last Admin: 03/31/25 09:18 Dose: 2 mg Lorazepam (Lorazepam 1 Mg Tablet) 1 mg PO BEDTIME [facility] Last Admin: 04/02/25 20:53 Dose: 1 mg Magnesium Hydroxide (Milk Of Magnesia 30 Ml Oral.Susp) 30 ml PO DAILY PRN PRN Reason: Constipation Magnesium Oxide (Magnesium Oxide 400 Mg Tablet) 400 mg PO BEDTIME [facility] Last Admin: 04/02/25 20:52 Dose: 400 mg Naltrexone HCl (Naltrexone Hcl 50 Mg Tablet) 50 mg PO DAILY [facility] Last Admin: 04/02/25 08:03 Dose: 50 mg Omeprazole (Omeprazole 20 Mg Capsule.) 20 mg PO DAILY@0630 [facility] Last Admin: 04/02/25 05:55 Dose: 20 mg Propranolol HCl (Propranolol Hcl 10 Mg Tablet) 10 mg PO TID [facility]; Protocol Last Admin: 04/02/25 20:52 Dose: 10 mg Pyridoxine HCl (Pyridoxine Hcl (Vitamin B6) 50 Mg Tablet) 50 mg PO DAILY [facility] Last Admin: 04/02/25 08:04 Dose: 50 mg Ropinirole HCl (Ropinirole Hcl 0.5 Mg Tablet) 0.5 mg PO BID [facility] Last Admin: 04/02/25 20:52 Dose: 0.5 mg Senna (Sennosides 8.6 Mg Tablet) 17.2 mg PO BEDTIME PRN PRN Reason: Constipation Sertraline HCl (Sertraline Hcl 25 Mg Tablet) 75 mg PO DAILY [facility] Last Admin: 04/02/25 08:03 Dose: 75 mg Thiamine HCl (Thiamine Hcl 100 Mg Tablet) 100 mg PO DAILY [facility] Last Admin: 04/02/25 08:05 Dose: 100 mg Trazodone HCl (Trazodone Hcl 50 Mg Tablet) 50 mg PO BEDTIME MRX1 PRN PRN Reason: Insomnia Last Admin: 04/02/25 03:45 Dose: 50 mg Trazodone HCl (Trazodone Hcl 50 Mg Tablet) 50 mg PO BEDTIME [facility] Last Admin: 04/02/25 20:52 Dose: 50 mg Vitamin D (Cholecalciferol (Vitamin D3) 25 Mcg Tablet) 50 mcg PO DAILY [facility] Last Admin: 04/02/25 08:02 Dose: 50 mcg Allergies Allergies Allergy/AdvReac Type Severity Reaction Status Date / Time No Known Allergies Allergy Verified 09/25/20 09:06 Assessment & Plan Assessment & Plan (1) Bipolar disorder with psychotic features: Status: Acute Code(s): F31.9 - Bipolar disorder, unspecified (2) Restless leg syndrome: Status: Acute Code(s): G25.81 - Restless legs syndrome Plan Mr Pearce is a 69 year-old male with hx of Bipolar Disorder and alcohol use disorder. Pt was brought to [facility] due to increase suicidal ideation with intent to OD. He reports he recently relapsed on alcohol and has had multiple losses which are contributing to increased depression. He denies SI/HI. Although not overt delusional content, collateral information reports he is often paranoid and suspicious of staff at [facility] and previous providers from [facility]. He as day went by appeared more suspicious of staff here on the unit, thinking they were talking about him. He has severe RLS. He has tried a number of medications for this including gabapentin and requip. He is also on a number of medication are known to exacerbate RLS including seroquel and sertraline. We discussed tapering off seroquel. We can add different antipsychotic that may cause less RLS. May try rexulti, vraylar or latuda. We also discussed considering switching sertraline to effexor or cymbalta as it may provide some benefit in terms of neuropathic pain with less exacerbation on RLS. Also consider switch from metoprolol to propanolol--> however, note that EKG shows 1st degree AV block and propanolol as not selective beta jordi may have greater impact on AV blockage. Clonidine also contributes to AV block and progression. PLAN 04/01 start rexulti 0.5mg po qhs. 04/02 will add trazodone 50mg po qhs, magnesium citrate 400mg po qhs for sleep. Reason for continued inpatient stay Substantial Risk for: inability to function Time Spent With Patient Time: Total time managing care of this patient today ____ minutes.
[2025-04-03] MEDS: traZODone HCL 50 MG TABLET PO (01:50)
[2025-04-03] MEDS: cephALEXin 500 MG CAPSULE PO ×4 (02:15→21:00)
[2025-04-03] MEDS: Omeprazole 20 MG CAPSULE.DR PO (05:50)
[2025-04-03] MEDS: Levothyroxine Sodium 75 MCG TABLET PO (05:50)
[2025-04-03 08:34] VITALS: BP 149/73; PULSE 73; RESP 16; TEMP 36.8; O2SAT 92
[2025-04-03] MEDS: Propranolol HCL 10 MG TABLET PO ×2 (08:36→15:18)
[2025-04-03] MEDS: Cholecalciferol (Vitamin D3) 25 MCG TABLET 50 MCG PO (08:37)
[2025-04-03] MEDS: Brexpiprazole 1 MG TABLET 0.5 MG PO (08:37)
[2025-04-03] MEDS: Gabapentin 300 MG CAPSULE PO ×2 (08:37→21:00)
[2025-04-03] MEDS: Ferrous Sulfate 324 MG TABLET.DR PO (08:38)
[2025-04-03] MEDS: Folic Acid 1 MG TABLET PO (08:38)
[2025-04-03] MEDS: Cyanocobalamin (Vitamin B-12) 500 MCG TABLET 250 MCG PO (08:38)
[2025-04-03] MEDS: Naltrexone HCl 50 MG TABLET PO (08:38)
[2025-04-03] MEDS: Thiamine HCL 100 MG TABLET PO (08:38)
[2025-04-03] MEDS: rOPINIRole HCL 0.5 MG TABLET PO ×2 (08:38→21:00)
[2025-04-03] MEDS: Ascorbic Acid 500 MG TABLET PO (08:38)
[2025-04-03] MEDS: Pyridoxine HCl (Vitamin B6) 50 MG TABLET PO (08:38)
[2025-04-03] MEDS: Sertraline HCL 25 MG TABLET 75 MG PO (08:39)
[2025-04-03] MEDS: lamoTRIgine 25 MG TABLET PO (08:39)
--- NOTE | 2025-04-03 11:09 | P.PNPSI_ITS ---
Subjective Subjective Date of Service: 04/03/25 Reason For Visit: other specified bipolar disorder Subjective Notes: Conditional Voluntary Interim History: Pt retracted 3 day. He reports poor sleep. We discussed changing antipsychotic to latuda, hoping it may not affect sleep. He presents as calmer but still suspicious and paranoid towards staff. He is forgetful and often does not remember who he spoke with. He agreed to stay few days longer to affect his medications. Review of Systems Review of Systems No abdominal pain. NO SOB. No chest pain Restless leg Mental Status Exam Mental Status Exam Narrative: Appearance: wearing hospital gown, fair hygiene, in NAD Behavior: calm, cooperative Psychomotor: moving of feet while in bed, no tremors. no agitation or retardation noted Speech: mostly clear, regular rate/rhythm/volume, spontaneous TP: tangential TC: wanting help with depression and RLS Mood: anxious Affect: brighter than reported mood SI: denies HI: denies VH/AH: reports voices of niece at night, but may not be psychotic in nature. He does have hx of auditory hallucinations and paranoid ideas Delusions: somewhat suspicious towards staff Insight/judgment: poor x 2. Memory/cog: alert, oriented x 3. noted gaps in memory as he is recalling medical hx and recent admission to the hospital Diagnostics Vital Signs (24Hr): Vital Signs - 24 hr 04/02/25 15:04 04/02/25 20:00 04/03/25 08:34 Temperature 97.3 F 98.2 F Pulse Rate 70 71 73 Respiratory Rate 16 Blood Pressure 133/81 141/65 H 149/73 H Pulse Oximetry 93 92 Oxygen Delivery Method Room Air Room Air BMI result Body Mass Index 25.9 Labs 03/30/25 08:42 Medications Medications Current Medications Acetaminophen (Acetaminophen 325 Mg Tablet) 650 mg PO Q6H PRN PRN Reason: Headache/Pain, Scale 1-10 Al Hydroxide/Mg Hydroxide (Magnesium Hydrox/Alum Hydrox 30 Ml Oral.Susp) 30 ml PO Q6H PRN PRN Reason: Heartburn/Nausea Ascorbic Acid (Ascorbic Acid 500 Mg Tablet) 500 mg PO DAILY [facility] Last Admin: 04/03/25 08:38 Dose: 500 mg Atorvastatin Calcium (Atorvastatin Calcium 80 Mg Tablet) 80 mg PO BEDTIME [facility] Last Admin: 04/02/25 20:52 Dose: 80 mg Brexpiprazole (Brexpiprazole 1 Mg Tablet) 0.5 mg PO DAILY [facility] Last Admin: 04/03/25 08:37 Dose: 0.5 mg Cephalexin HCl (Cephalexin 500 Mg Capsule) 500 mg PO Q6H [facility] Stop: 04/10/25 08:59 Last Admin: 04/03/25 08:38 Dose: 500 mg Cyanocobalamin (Cyanocobalamin (Vitamin B-12) 500 Mcg Tablet) 250 mcg PO DAILY [facility] Last Admin: 04/03/25 08:38 Dose: 250 mcg Ferrous Sulfate (Ferrous Sulfate 324 Mg Tablet.) 324 mg PO DAILY [facility] Last Admin: 04/03/25 08:38 Dose: 324 mg Folic Acid (Folic Acid 1 Mg Tablet) 1 mg PO DAILY [facility] Last Admin: 04/03/25 08:38 Dose: 1 mg Gabapentin (Gabapentin 300 Mg Capsule) 300 mg PO BID [facility] Last Admin: 04/03/25 08:37 Dose: 300 mg Lamotrigine (Lamotrigine 25 Mg Tablet) 25 mg PO DAILY [facility] Last Admin: 04/03/25 08:39 Dose: 25 mg Levothyroxine Sodium (Levothyroxine Sodium 75 Mcg Tablet) 75 mcg PO DAILY@0700 [facility] Last Admin: 04/03/25 05:50 Dose: 75 mcg Loperamide HCl (Loperamide Hcl 2 Mg Capsule) 2 mg PO Q4H PRN PRN Reason: Loose Stool Last Admin: 03/31/25 09:18 Dose: 2 mg Lorazepam (Lorazepam 1 Mg Tablet) 1 mg PO BEDTIME [facility] Last Admin: 04/02/25 20:53 Dose: 1 mg Magnesium Hydroxide (Milk Of Magnesia 30 Ml Oral.Susp) 30 ml PO DAILY PRN PRN Reason: Constipation Magnesium Oxide (Magnesium Oxide 400 Mg Tablet) 400 mg PO BEDTIME [facility] Last Admin: 04/02/25 20:52 Dose: 400 mg Naltrexone HCl (Naltrexone Hcl 50 Mg Tablet) 50 mg PO DAILY [facility] Last Admin: 04/03/25 08:38 Dose: 50 mg Omeprazole (Omeprazole 20 Mg Capsule.) 20 mg PO DAILY@0630 [facility] Last Admin: 04/03/25 05:50 Dose: 20 mg Propranolol HCl (Propranolol Hcl 10 Mg Tablet) 10 mg PO TID [facility]; Protocol Last Admin: 04/03/25 08:36 Dose: 10 mg Pyridoxine HCl (Pyridoxine Hcl (Vitamin B6) 50 Mg Tablet) 50 mg PO DAILY [facility] Last Admin: 04/03/25 08:38 Dose: 50 mg Ropinirole HCl (Ropinirole Hcl 0.5 Mg Tablet) 0.5 mg PO BID [facility] Last Admin: 04/03/25 08:38 Dose: 0.5 mg Senna (Sennosides 8.6 Mg Tablet) 17.2 mg PO BEDTIME PRN PRN Reason: Constipation Sertraline HCl (Sertraline Hcl 25 Mg Tablet) 75 mg PO DAILY [facility] Last Admin: 04/03/25 08:39 Dose: 75 mg Thiamine HCl (Thiamine Hcl 100 Mg Tablet) 100 mg PO DAILY [facility] Last Admin: 04/03/25 08:38 Dose: 100 mg Trazodone HCl (Trazodone Hcl 50 Mg Tablet) 50 mg PO BEDTIME MRX1 PRN PRN Reason: Insomnia Last Admin: 04/03/25 01:50 Dose: 50 mg Trazodone HCl (Trazodone Hcl 50 Mg Tablet) 50 mg PO BEDTIME [facility] Last Admin: 04/02/25 20:52 Dose: 50 mg Vitamin D (Cholecalciferol (Vitamin D3) 25 Mcg Tablet) 50 mcg PO DAILY [facility] Last Admin: 04/03/25 08:37 Dose: 50 mcg Allergies Allergies Allergy/AdvReac Type Severity Reaction Status Date / Time No Known Allergies Allergy Verified 09/25/20 09:06 Assessment & Plan Assessment & Plan (1) Bipolar disorder with psychotic features: Status: Acute Code(s): F31.9 - Bipolar disorder, unspecified (2) Restless leg syndrome: Status: Acute Code(s): G25.81 - Restless legs syndrome Plan Mr Pearce is a 69 year-old male with hx of Bipolar Disorder and alcohol use disorder. Pt was brought to [facility] due to increase suicidal ideation with intent to OD. He reports he recently relapsed on alcohol and has had multiple losses which are contributing to increased depression. He denies SI/HI. Although not overt delusional content, collateral information reports he is often paranoid and suspicious of staff at [facility] and previous providers from [facility]. He as day went by appeared more suspicious of staff here on the unit, thinking they were talking about him. He has severe RLS. He has tried a number of medications for this including gabapentin and requip. He is also on a number of medication are known to exacerbate RLS including seroquel and sertraline. We discussed tapering off seroquel. We can add different antipsychotic that may cause less RLS. May try rexulti, vraylar or latuda. We also discussed considering switching sertraline to effexor or cymbalta as it may provide some benefit in terms of neuropathic pain with less exacerbation on RLS. Also consider switch from metoprolol to propanolol--> however, note that EKG shows 1st degree AV block and propanolol as not selective beta jordi may have greater impact on AV blockage. Clonidine also contributes to AV block and progression. PLAN 04/01 start rexulti 0.5mg po qhs. 04/02 will add trazodone 50mg po qhs, magnesium citrate 400mg po qhs for sleep. 04/03 increase trazodone 100mg po qhs, d/c rexulti, add latuda 40mg po daily at dinner time. Reason for continued inpatient stay Substantial Risk for: inability to function Time Spent With Patient Time: Total time managing care of this patient today ____ minutes.
[2025-04-03 15:18] VITALS: BP 129/86; PULSE 81
[2025-04-03 20:00] VITALS: BP 124/74; PULSE 86; RESP 18; TEMP 36.2; O2SAT 95
[2025-04-03] MEDS: LORazepam 1 MG TABLET PO (21:00)
[2025-04-03] MEDS: traZODone HCL 100 MG TABLET PO (21:00)
[2025-04-03] MEDS: Melatonin 3 MG TABLET 6 MG PO (21:00)
[2025-04-03] MEDS: Atorvastatin Calcium 80 MG TABLET PO (21:00)
--- NOTE | 2025-04-03 21:38 | PC.NURSE ---
Assumed care of this patient at 19:30. Patient is calm and cooperative, seen ambulating in the milieu this evening, steady. Med compliant, tolerated without issue. VSS. Pt denies acute complaints. No distress noted. Handoff report given at 21:30.
[2025-04-04] MEDS: traZODone HCL 50 MG TABLET PO (00:49)
[2025-04-04] MEDS: cephALEXin 500 MG CAPSULE PO ×4 (02:42→21:39)
[2025-04-04] MEDS: Omeprazole 20 MG CAPSULE.DR PO (05:54)
[2025-04-04] MEDS: Levothyroxine Sodium 75 MCG TABLET PO (06:39)
[2025-04-04 08:00] VITALS: BP 116/58; PULSE 85; RESP 14; TEMP 36.8; O2SAT 94
[2025-04-04] MEDS: Cholecalciferol (Vitamin D3) 25 MCG TABLET 50 MCG PO (09:37)
[2025-04-04] MEDS: Naltrexone HCl 50 MG TABLET PO (09:38)
[2025-04-04] MEDS: Sertraline HCL 25 MG TABLET 75 MG PO (09:39)
[2025-04-04] MEDS: Cyanocobalamin (Vitamin B-12) 500 MCG TABLET 250 MCG PO (09:39)
[2025-04-04] MEDS: Ferrous Sulfate 324 MG TABLET.DR PO (09:39)
[2025-04-04] MEDS: rOPINIRole HCL 0.5 MG TABLET PO ×2 (09:39→21:40)
[2025-04-04] MEDS: Metoprolol Succinate ER 50 MG TAB.ER.24H PO (09:39)
[2025-04-04] MEDS: Ascorbic Acid 500 MG TABLET PO (09:40)
[2025-04-04] MEDS: Folic Acid 1 MG TABLET PO (09:40)
[2025-04-04] MEDS: Thiamine HCL 100 MG TABLET PO (09:40)
[2025-04-04] MEDS: lamoTRIgine 25 MG TABLET PO (09:40)
[2025-04-04] MEDS: Pyridoxine HCl (Vitamin B6) 50 MG TABLET PO (09:40)
[2025-04-04] MEDS: Gabapentin 300 MG CAPSULE PO ×2 (09:41→21:40)
--- NOTE | 2025-04-04 15:57 | P.PNPSI_ITS ---
Subjective Subjective Date of Service: 04/04/25 Reason For Visit: other specified bipolar disorder Subjective Notes: Conditional Voluntary Interim History: Pt slept about 5 hrs. He reports he did not sleep at all which is not accurate but his sleep does seem to be broke. will switch ativan to diazepam, see if this helps. Continue latuda, plan to titrate to 60mg po with dinner tomorrow. he presents slightly less paranoid and suspicious. He is confused as to who he talks with and does not seem to remember some of the medication changes. had meeting with OP team- discussed medication changes, clinical update. Review of Systems Review of Systems No abdominal pain. NO SOB. No chest pain Restless leg Mental Status Exam Mental Status Exam Narrative: Appearance: wearing hospital gown, fair hygiene, in NAD Behavior: calm, cooperative Psychomotor: moving of feet while in bed, no tremors. no agitation or retardation noted Speech: mostly clear, regular rate/rhythm/volume, spontaneous TP: tangential TC: wanting help with depression and RLS Mood: anxious Affect: brighter than reported mood SI: denies HI: denies VH/AH: reports voices of niece at night, but may not be psychotic in nature. He does have hx of auditory hallucinations and paranoid ideas Delusions: somewhat suspicious towards staff Insight/judgment: poor x 2. Memory/cog: alert, oriented x 3. noted gaps in memory as he is recalling medical hx and recent admission to the hospital Diagnostics Vital Signs (24Hr): Vital Signs - 24 hr 04/03/25 20:00 04/04/25 08:00 Temperature 97.1 F 98.2 F Pulse Rate 86 85 Respiratory Rate 18 14 Blood Pressure 124/74 116/58 L Pulse Oximetry 95 94 Oxygen Delivery Method Room Air Room Air BMI result Body Mass Index 25.9 Labs 03/30/25 08:42 Medications Medications Current Medications Acetaminophen (Acetaminophen 325 Mg Tablet) 650 mg PO Q6H PRN PRN Reason: Headache/Pain, Scale 1-10 Al Hydroxide/Mg Hydroxide (Magnesium Hydrox/Alum Hydrox 30 Ml Oral.Susp) 30 ml PO Q6H PRN PRN Reason: Heartburn/Nausea Ascorbic Acid (Ascorbic Acid 500 Mg Tablet) 500 mg PO DAILY [facility] Last Admin: 04/04/25 09:40 Dose: 500 mg Atorvastatin Calcium (Atorvastatin Calcium 80 Mg Tablet) 80 mg PO BEDTIME [facility] Last Admin: 04/03/25 21:00 Dose: 80 mg Cephalexin HCl (Cephalexin 500 Mg Capsule) 500 mg PO Q6H [facility] Stop: 04/10/25 08:59 Last Admin: 04/04/25 14:59 Dose: 500 mg Cyanocobalamin (Cyanocobalamin (Vitamin B-12) 500 Mcg Tablet) 250 mcg PO DAILY [facility] Last Admin: 04/04/25 09:39 Dose: 250 mcg Ferrous Sulfate (Ferrous Sulfate 324 Mg Tablet.) 324 mg PO DAILY [facility] Last Admin: 04/04/25 09:39 Dose: 324 mg Folic Acid (Folic Acid 1 Mg Tablet) 1 mg PO DAILY [facility] Last Admin: 04/04/25 09:40 Dose: 1 mg Gabapentin (Gabapentin 300 Mg Capsule) 300 mg PO BID [facility] Last Admin: 04/04/25 09:41 Dose: 300 mg Lamotrigine (Lamotrigine 25 Mg Tablet) 25 mg PO DAILY [facility] Last Admin: 04/04/25 09:40 Dose: 25 mg Levothyroxine Sodium (Levothyroxine Sodium 75 Mcg Tablet) 75 mcg PO DAILY@0700 [facility] Last Admin: 04/04/25 06:39 Dose: 75 mcg Loperamide HCl (Loperamide Hcl 2 Mg Capsule) 2 mg PO Q4H PRN PRN Reason: Loose Stool Last Admin: 03/31/25 09:18 Dose: 2 mg Lorazepam (Lorazepam 1 Mg Tablet) 1 mg PO BEDTIME [facility] Last Admin: 04/03/25 21:00 Dose: 1 mg Lurasidone HCl (Lurasidone Hcl 40 Mg Tablet) 40 mg PO DAILY@1700 [facility] Magnesium Hydroxide (Milk Of Magnesia 30 Ml Oral.Susp) 30 ml PO DAILY PRN PRN Reason: Constipation Melatonin (Melatonin 3 Mg Tablet) 6 mg PO BEDTIME [facility] Last Admin: 04/03/25 21:00 Dose: 6 mg Metoprolol Succinate (Metoprolol Succinate Er 50 Mg Tab.Er.24h) 50 mg PO DAILY [facility]; Protocol Last Admin: 04/04/25 09:39 Dose: 50 mg Naltrexone HCl (Naltrexone Hcl 50 Mg Tablet) 50 mg PO DAILY [facility] Last Admin: 04/04/25 09:38 Dose: 50 mg Omeprazole (Omeprazole 20 Mg Capsule.) 20 mg PO DAILY@0630 [facility] Last Admin: 04/04/25 05:54 Dose: 20 mg Pyridoxine HCl (Pyridoxine Hcl (Vitamin B6) 50 Mg Tablet) 50 mg PO DAILY [facility] Last Admin: 04/04/25 09:40 Dose: 50 mg Ropinirole HCl (Ropinirole Hcl 0.5 Mg Tablet) 0.5 mg PO BID [facility] Last Admin: 04/04/25 09:39 Dose: 0.5 mg Senna (Sennosides 8.6 Mg Tablet) 17.2 mg PO BEDTIME PRN PRN Reason: Constipation Sertraline HCl (Sertraline Hcl 25 Mg Tablet) 75 mg PO DAILY [facility] Last Admin: 04/04/25 09:39 Dose: 75 mg Thiamine HCl (Thiamine Hcl 100 Mg Tablet) 100 mg PO DAILY [facility] Last Admin: 04/04/25 09:40 Dose: 100 mg Trazodone HCl (Trazodone Hcl 100 Mg Tablet) 100 mg PO BEDTIME [facility] Last Admin: 04/03/25 21:00 Dose: 100 mg Trazodone HCl (Trazodone Hcl 50 Mg Tablet) 50 mg PO BEDTIME PRN PRN Reason: Insomnia Last Admin: 04/04/25 00:49 Dose: 50 mg Vitamin D (Cholecalciferol (Vitamin D3) 25 Mcg Tablet) 50 mcg PO DAILY [facility] Last Admin: 04/04/25 09:37 Dose: 50 mcg Allergies Allergies Allergy/AdvReac Type Severity Reaction Status Date / Time No Known Allergies Allergy Verified 09/25/20 09:06 Assessment & Plan Assessment & Plan (1) Bipolar disorder with psychotic features: Status: Acute Code(s): F31.9 - Bipolar disorder, unspecified (2) Restless leg syndrome: Status: Acute Code(s): G25.81 - Restless legs syndrome Plan Mr Pearce is a 69 year-old male with hx of Bipolar Disorder and alcohol use disorder. Pt was brought to [facility] due to increase suicidal ideation with intent to OD. He reports he recently relapsed on alcohol and has had multiple losses which are contributing to increased depression. He denies SI/HI. Although not overt delusional content, collateral information reports he is often paranoid and suspicious of staff at [facility] and previous providers from [facility]. He as day went by appeared more suspicious of staff here on the unit, thinking they were talking about him. He has severe RLS. He has tried a number of medications for this including gabapentin and requip. He is also on a number of medication are known to exacerbate RLS including seroquel and sertraline. We discussed tapering off seroquel. We can add different antipsychotic that may cause less RLS. May try rexulti, vraylar or latuda. We also discussed considering switching sertraline to effexor or cymbalta as it may provide some benefit in terms of neuropathic pain with less exacerbation on RLS. Also consider switch from metoprolol to propanolol--> however, note that EKG shows 1st degree AV block and propanolol as not selective beta jordi may have greater impact on AV blockage. Clonidine also contributes to AV block and progression. PLAN 04/01 start rexulti 0.5mg po qhs. 04/02 will add trazodone 50mg po qhs, magnesium citrate 400mg po qhs for sleep. 04/03 increase trazodone 100mg po qhs, d/c rexulti, add latuda 40mg po daily at dinner time. 04/04 will switch ativan to diazepam 5mg po at bedtime. continue trazodone 100mg po qhs. latuda at current dose. Reason for continued inpatient stay Substantial Risk for: inability to function Time Spent With Patient Time: Total time managing care of this patient today ____ minutes.
[2025-04-04] MEDS: Lurasidone HCl 40 MG TABLET PO (17:07)
[2025-04-04 20:00] VITALS: BP 145/71; PULSE 69; RESP 18; TEMP 36.8; O2SAT 96
[2025-04-04] MEDS: traZODone HCL 100 MG TABLET PO (21:39)
[2025-04-04] MEDS: lamoTRIgine 25 MG TABLET 50 MG PO (21:39)
[2025-04-04] MEDS: diazePAM 5 MG TABLET PO (21:39)
[2025-04-04] MEDS: Melatonin 3 MG TABLET 6 MG PO (21:39)
[2025-04-04] MEDS: Atorvastatin Calcium 80 MG TABLET PO (21:40)
[2025-04-05] MEDS: cephALEXin 500 MG CAPSULE PO ×4 (02:50→21:27)
[2025-04-05] MEDS: traZODone HCL 50 MG TABLET PO (02:55)
[2025-04-05] MEDS: Omeprazole 20 MG CAPSULE.DR PO (05:57)
[2025-04-05] MEDS: Levothyroxine Sodium 75 MCG TABLET PO (05:57)
[2025-04-05 08:00] VITALS: BP 129/62; PULSE 65; TEMP 36.8; O2SAT 94
[2025-04-05] MEDS: Cholecalciferol (Vitamin D3) 25 MCG TABLET 50 MCG PO (08:39)
[2025-04-05] MEDS: Sertraline HCL 25 MG TABLET 75 MG PO (08:40)
[2025-04-05] MEDS: Cyanocobalamin (Vitamin B-12) 500 MCG TABLET 250 MCG PO (08:40)
[2025-04-05] MEDS: Naltrexone HCl 50 MG TABLET PO (08:40)
[2025-04-05 08:41] VITALS: BP 129/62; PULSE 65
[2025-04-05] MEDS: rOPINIRole HCL 0.5 MG TABLET PO ×2 (08:41→21:27)
[2025-04-05] MEDS: Ferrous Sulfate 324 MG TABLET.DR PO (08:41)
[2025-04-05] MEDS: Ascorbic Acid 500 MG TABLET PO (08:41)
[2025-04-05] MEDS: Gabapentin 300 MG CAPSULE PO ×2 (08:41→21:28)
[2025-04-05] MEDS: Pyridoxine HCl (Vitamin B6) 50 MG TABLET PO (08:41)
[2025-04-05] MEDS: Thiamine HCL 100 MG TABLET PO (08:41)
[2025-04-05] MEDS: Metoprolol Succinate ER 50 MG TAB.ER.24H PO (08:41)
[2025-04-05] MEDS: Folic Acid 1 MG TABLET PO (08:41)
--- NOTE | 2025-04-05 13:51 | HO.PSYCHPN ---
Subjective Subjective Date of Service: 04/05/25 Reason For Visit: other specified bipolar disorder Interim History: calm, cooperative,pleasant. c/o poor sleep, noting seroquel helped him sleep muich better and his RLS Sx are worse now that when he was taking seroquel. agrees to restart seroquel a100 tonight with 100 PRN. instructed to take up the issue with edinson when she returns tomorrow. per staff, started on latuda. c/o insomnie the past 3 nights. variable reports of sleep from staff, from 4-7 hours. had trazodone at 0230. asking for seroquel. Mental Status Exam Mental Status Exam Narrative: Appearance: wearing own attire, fair hygiene, in NAD Behavior: calm, cooperative Psychomotor: moving of feet while in bed, no tremors. no agitation or retardation noted Speech: mostly clear, regular rate/rhythm/volume, spontaneous TP: tangential TC: wanting help with RLS and sleep Mood: not assessed Affect: full range, flexible, well-related SI: none expressed HI: none expressed VH/AH: none expressed Delusions: none expressed Insight/judgment: poor x 2. Memory/cog: alert, oriented x 3. noted gaps in memory as he is recalling medical hx and recent admission to the hospital Diagnostics Vital Signs (24Hr): Vital Signs - 24 hr 04/04/25 20:00 04/05/25 08:00 04/05/25 08:41 Temperature 98.2 F 98.3 F Pulse Rate 69 65 65 Respiratory Rate 18 Blood Pressure 145/71 H 129/62 129/62 Pulse Oximetry 96 94 Oxygen Delivery Method Room Air Room Air BMI result Body Mass Index 25.9 Labs 03/30/25 08:42 Medications Medications Current Medications Acetaminophen (Acetaminophen 325 Mg Tablet) 650 mg PO Q6H PRN PRN Reason: Headache/Pain, Scale 1-10 Al Hydroxide/Mg Hydroxide (Magnesium Hydrox/Alum Hydrox 30 Ml Oral.Susp) 30 ml PO Q6H PRN PRN Reason: Heartburn/Nausea Ascorbic Acid (Ascorbic Acid 500 Mg Tablet) 500 mg PO DAILY [facility] Last Admin: 04/05/25 08:41 Dose: 500 mg Atorvastatin Calcium (Atorvastatin Calcium 80 Mg Tablet) 80 mg PO BEDTIME [facility] Last Admin: 04/04/25 21:40 Dose: 80 mg Cephalexin HCl (Cephalexin 500 Mg Capsule) 500 mg PO Q6H [facility] Stop: 04/10/25 08:59 Last Admin: 04/05/25 08:40 Dose: 500 mg Cyanocobalamin (Cyanocobalamin (Vitamin B-12) 500 Mcg Tablet) 250 mcg PO DAILY [facility] Last Admin: 04/05/25 08:40 Dose: 250 mcg Diazepam (Diazepam 5 Mg Tablet) 5 mg PO BEDTIME [facility] Last Admin: 04/04/25 21:39 Dose: 5 mg Ferrous Sulfate (Ferrous Sulfate 324 Mg Tablet.) 324 mg PO DAILY [facility] Last Admin: 04/05/25 08:41 Dose: 324 mg Folic Acid (Folic Acid 1 Mg Tablet) 1 mg PO DAILY [facility] Last Admin: 04/05/25 08:41 Dose: 1 mg Gabapentin (Gabapentin 300 Mg Capsule) 300 mg PO BID [facility] Last Admin: 04/05/25 08:41 Dose: 300 mg Lamotrigine (Lamotrigine 25 Mg Tablet) 50 mg PO BEDTIME [facility] Last Admin: 04/04/25 21:39 Dose: 50 mg Levothyroxine Sodium (Levothyroxine Sodium 75 Mcg Tablet) 75 mcg PO DAILY@0700 [facility] Last Admin: 04/05/25 05:57 Dose: 75 mcg Loperamide HCl (Loperamide Hcl 2 Mg Capsule) 2 mg PO Q4H PRN PRN Reason: Loose Stool Last Admin: 03/31/25 09:18 Dose: 2 mg Lurasidone HCl (Lurasidone Hcl 40 Mg Tablet) 40 mg PO DAILY@1700 [facility] Last Admin: 04/04/25 17:07 Dose: 40 mg Magnesium Hydroxide (Milk Of Magnesia 30 Ml Oral.Susp) 30 ml PO DAILY PRN PRN Reason: Constipation Melatonin (Melatonin 3 Mg Tablet) 6 mg PO BEDTIME [facility] Last Admin: 04/04/25 21:39 Dose: 6 mg Metoprolol Succinate (Metoprolol Succinate Er 50 Mg Tab.Er.24h) 50 mg PO DAILY [facility]; Protocol Last Admin: 04/05/25 08:41 Dose: 50 mg Naltrexone HCl (Naltrexone Hcl 50 Mg Tablet) 50 mg PO DAILY [facility] Last Admin: 04/05/25 08:40 Dose: 50 mg Omeprazole (Omeprazole 20 Mg Capsule.) 20 mg PO DAILY@0630 [facility] Last Admin: 04/05/25 05:57 Dose: 20 mg Pyridoxine HCl (Pyridoxine Hcl (Vitamin B6) 50 Mg Tablet) 50 mg PO DAILY [facility] Last Admin: 04/05/25 08:41 Dose: 50 mg Quetiapine Fumarate (Quetiapine Fumarate 100 Mg Tablet) 100 mg PO BEDTIME [facility] Ropinirole HCl (Ropinirole Hcl 0.5 Mg Tablet) 0.5 mg PO BID [facility] Last Admin: 04/05/25 08:41 Dose: 0.5 mg Senna (Sennosides 8.6 Mg Tablet) 17.2 mg PO BEDTIME PRN PRN Reason: Constipation Sertraline HCl (Sertraline Hcl 25 Mg Tablet) 75 mg PO DAILY [facility] Last Admin: 04/05/25 08:40 Dose: 75 mg Thiamine HCl (Thiamine Hcl 100 Mg Tablet) 100 mg PO DAILY [facility] Last Admin: 04/05/25 08:41 Dose: 100 mg Trazodone HCl (Trazodone Hcl 100 Mg Tablet) 100 mg PO BEDTIME [facility] Last Admin: 04/04/25 21:39 Dose: 100 mg Trazodone HCl (Trazodone Hcl 50 Mg Tablet) 50 mg PO BEDTIME PRN PRN Reason: Insomnia Last Admin: 04/05/25 02:55 Dose: 50 mg Vitamin D (Cholecalciferol (Vitamin D3) 25 Mcg Tablet) 50 mcg PO DAILY [facility] Last Admin: 04/05/25 08:39 Dose: 50 mcg Allergies Allergies Allergy/AdvReac Type Severity Reaction Status Date / Time No Known Allergies Allergy Verified 09/25/20 09:06 Assessment & Plan Assessment & Plan (1) Bipolar disorder with psychotic features: Status: Acute Code(s): F31.9 - Bipolar disorder, unspecified (2) Restless leg syndrome: Status: Acute Code(s): G25.81 - Restless legs syndrome Plan Mr Pearce is a 69 year-old male with hx of Bipolar Disorder and alcohol use disorder. Pt was brought to [facility] due to increase suicidal ideation with intent to OD. He reports he recently relapsed on alcohol and has had multiple losses which are contributing to increased depression. He denies SI/HI. Although not overt delusional content, collateral information reports he is often paranoid and suspicious of staff at [facility] and previous providers from [facility]. He as day went by appeared more suspicious of staff here on the unit, thinking they were talking about him. He has severe RLS. He has tried a number of medications for this including gabapentin and requip. He is also on a number of medication are known to exacerbate RLS including seroquel and sertraline. We discussed tapering off seroquel. We can add different antipsychotic that may cause less RLS. May try rexulti, vraylar or latuda. We also discussed considering switching sertraline to effexor or cymbalta as it may provide some benefit in terms of neuropathic pain with less exacerbation on RLS. Also consider switch from metoprolol to propanolol--> however, note that EKG shows 1st degree AV block and propanolol as not selective beta jordi may have greater impact on AV blockage. Clonidine also contributes to AV block and progression. PLAN 04/01 start rexulti 0.5mg po qhs. 04/02 will add trazodone 50mg po qhs, magnesium citrate 400mg po qhs for sleep. 04/03 increase trazodone 100mg po qhs, d/c rexulti, add latuda 40mg po daily at dinner time. 04/04 will switch ativan to diazepam 5mg po at bedtime. continue trazodone 100mg po qhs. latuda at current dose. 04/05: c/o severe insomnis the past 3 nights and RLS Sx worse than before. hold trazodone for now and restart seroquel at HS, 100 mg scheduled and 100 mg PRN, per pt request. pt to review meds regimen with provider tomorrow for any more permanent changes. Reason for continued inpatient stay Substantial Risk for: harm to self and inability to function Time Spent With Patient Time: Total time managing care of this patient today __25__ minutes.
--- NOTE | 2025-04-05 16:50 | HO.WOUND ---
Wound Consult: Attempted follow up Arrival to unit patient was eating dinner and requested I return at future time to assess due to his meal arrival - We agreed to future follow up assessment - direct care nurse notified to continue topical care with current recommendations. Details from previous assessment: 69yr old?male admitted to [facility] on 03/29/25 on the [facility] Unit - See progress notes and H&P for detailed history.? Wound consult placed for Left and Right Leg wounds poa.? Patient agreeable to assessment and photo documentation.? Patient reports he is not sure how the wounds started he reports he does not have Diabetes and denies history of vascular services needs - of importance he does have strong pedal pulses and denies history of swelling. He reports he has had the wounds for approximately 4 months and he has a VNA services that comes to treat the wounds he is unsure of the topical treatment they use. He reports he has a strong history of restless leg syndrome and itching to the lower legs. He reports the itching has been absent for approximately one month. The etiology at this time remains unclear - topical treatment will consist of moist wound healing. Left Great Toe Plantar wound - pale pink moist wound bed with thickened callused wound edges - Medihoney and durafiber AG used with dry gauze. Change every other day. Left Leg Left Leg - wound beds appear to be resurfacing despite looking like open wound beds. The surrounding tissue is bright red, no induration no fluctuance and no swelling noted at this time. Treated with Durafiber and gauze dressing. Left Lateral Ankle and dorsal foot wound - scattered open areas of red moist tissue partial and full thickness tissue loss noted - macerated wound edges and periwound noted. not consistent with fungal deramtitis at this time - no bulla or vesicles noted no crusting noted. Right [place] Right 2nd toe Right leg intact with scattered scabs noted - stable and not in need of intervention evidence of prior scratching. Right 2nd toe with stable dry scab but considerable red erythema noted - provider to assess for antibiotics. Recommendations: Monitor for incontinence and moisture control, use barrier creams when needed for prevention and treatment. Provide adequate and supplemental nutrition.? Left Plantar Wound - Cleanse with saline, pat dry. ?Apply layer of Medihoney to wound bed. ?Cover with Durafibe AG (Store room # [id number] ), cover with gry gauze and secure with tape. Change every other day and PRN. Medihoney available from wound nurse ? tube left at bedside for use and additional tube left on unit. Left ankle, foot and lower leg - Cleanse with NS, Pat dry.? Apply barrier to periwound, cover wound bed with Durafiber AG, apply dry gauze and ABd pad and Elestic netting to hold in place. Change every other day. Right second toe - no topical interventions needed at this time. Re-consult wound care Nurse for wound deterioration or wound changes.
[2025-04-05] MEDS: Lurasidone HCl 40 MG TABLET PO (17:51)
[2025-04-05 20:00] VITALS: BP 138/70; PULSE 65; RESP 18; TEMP 36.7; O2SAT 94
[2025-04-05] MEDS: Atorvastatin Calcium 80 MG TABLET PO (21:27)
[2025-04-05] MEDS: diazePAM 5 MG TABLET PO (21:27)
[2025-04-05] MEDS: lamoTRIgine 25 MG TABLET 50 MG PO (21:28)
[2025-04-05] MEDS: Melatonin 3 MG TABLET 6 MG PO (21:28)
[2025-04-05] MEDS: QUEtiapine Fumarate 100 MG TABLET PO (22:17)
[2025-04-06] MEDS: QUEtiapine Fumarate 100 MG TABLET PO ×2 (00:03→20:30)
[2025-04-06] MEDS: cephALEXin 500 MG CAPSULE PO ×4 (02:58→20:29)
[2025-04-06] MEDS: Levothyroxine Sodium 75 MCG TABLET PO (06:09)
[2025-04-06] MEDS: Omeprazole 20 MG CAPSULE.DR PO (06:09)
[2025-04-06 07:51] LABS: MANUAL DIFF FLAG NO
[2025-04-06 07:57] LABS: Basophils Percent Auto 0.6 % (0-2); Eosinophils Absolute Auto 0.3 X10*3/uL (0.0-0.4); Eosinophils Percent Auto 4.5 % (0-4); Hemoglobin 13.3 g/dl (14.0-18.0); Imm Gran Abs Auto 0.02 X10*3/uL (0.00-0.03); Imm Gran Pct Auto 0.3 % (0.0-0.4); Lymphocytes Absolute Auto 1.4 X10*3/uL (1.2-4.9); Lymphocytes Percent Auto 19.7 % (20-40); Mean Corpuscular HGB Conc 31.7 g/dl (31.0-36.0); Mean Corpuscular Hemoglobin 29.4 pg (27.0-33.0); Mean Corpuscular Volume 92.7 fL (80.0-98.0); Monocytes Absolute Auto 0.7 X10*3/uL (0.1-1.2); Monocytes Percent Auto 9.7 % (2-11); Neutrophils Absolute Auto 4.5 x10*3/uL (2.0-8.3); Neutrophils Percent Auto 65.2 % (45-73); Platelet Count 169 X10*3/uL (160-400); Red Blood Count 4.53 X10*6/uL (4.60-5.80); Red Cell Distribution Width 13.7 % (11.0-16.0); White Blood Count 6.9 X10*3/uL (4.8-10.8)
[2025-04-06 08:00] VITALS: BP 104/52; PULSE 74; RESP 16; TEMP 36.3; O2SAT 96
[2025-04-06 08:11] LABS: Alanine Aminotransferase 24 U/L (0-40); Albumin Level 4.2 g/dL (3.5-5.0); Alkaline Phosphatase 123 U/L (39-117); Anion Gap 10 (12-20); Aspartate Amino Transferase 33 U/L (5-37); Bilirubin Total 0.3 mg/dL (0.0-1.0); Blood Urea Nitrogen 22 mg/dL (9-16); Calcium 9.9 mg/dL (8.4-10.2); Carbon Dioxide 32 mmol/L (22-29); Chloride 103 mmol/L (96-108); Creatinine Clr Calc Pharmacy 104.1; Estimated Glomerular Filt Rate > 60; Glucose Random 132 mg/dL (60-115); Potassium 4.4 mmol/L (3.3-5.1); Sodium 141 mmol/L (135-145); Total Protein 8.7 g/dL (6.5-8.0)
[2025-04-06] MEDS: Sertraline HCL 25 MG TABLET 75 MG PO (08:27)
[2025-04-06] MEDS: rOPINIRole HCL 0.5 MG TABLET PO ×2 (08:28→20:29)
[2025-04-06] MEDS: Cholecalciferol (Vitamin D3) 25 MCG TABLET 50 MCG PO (08:28)
[2025-04-06] MEDS: Cyanocobalamin (Vitamin B-12) 500 MCG TABLET 250 MCG PO (08:29)
[2025-04-06] MEDS: Pyridoxine HCl (Vitamin B6) 50 MG TABLET PO (08:29)
[2025-04-06] MEDS: Ferrous Sulfate 324 MG TABLET.DR PO (08:29)
[2025-04-06 08:30] VITALS: BP 104/52; PULSE 74
[2025-04-06] MEDS: Metoprolol Succinate ER 50 MG TAB.ER.24H PO (08:30)
[2025-04-06] MEDS: Folic Acid 1 MG TABLET PO (08:30)
[2025-04-06] MEDS: Thiamine HCL 100 MG TABLET PO (08:30)
[2025-04-06] MEDS: Ascorbic Acid 500 MG TABLET PO (08:30)
[2025-04-06] MEDS: Gabapentin 300 MG CAPSULE PO ×2 (08:30→20:30)
[2025-04-06] MEDS: Naltrexone HCl 50 MG TABLET PO (08:31)
[2025-04-06 11:23] VITALS: BMI 26.1
--- NOTE | 2025-04-06 12:12 | HO.PSYCHPN ---
Subjective Subjective Date of Service: 04/06/25 Reason For Visit: other specified bipolar disorder Subjective Notes: Conditional Voluntary Interim History: Pt complaints of sleep. He reports he did not sleep not even one hour. Nursing reports slept 4hrs. Previous night it was reported that he slept 7hrs, which pt reports is a lie and reports he was up all night. We discussed continuing seroquel, restarting trazodone (he seemed to sleep better with trazodone). He asked about clonidine which we discussed his BP is low for this medication along with AV block. He states this is not the case, despite telling pt that we are checking his BP twice a day. Medication Compliance: Yes Mental Status Exam Mental Status Exam Narrative: Appearance: wearing own attire, fair hygiene, in NAD Behavior: calm, cooperative Psychomotor: moving of feet while in bed, no tremors. no agitation or retardation noted Speech: mostly clear, regular rate/rhythm/volume, spontaneous TP: tangential TC: worried about sleep Mood: ok Affect: full range, flexible, well-related SI: none expressed HI: none expressed VH/AH: none expressed Delusions: none expressed Insight/judgment: poor x 2. Memory/cog: alert, oriented x 3. noted gaps in memory as he is recalling medical hx and recent admission to the hospital Diagnostics Vital Signs (24Hr): Vital Signs - 24 hr 04/05/25 20:00 04/06/25 08:00 04/06/25 08:30 Temperature 98.1 F 97.3 F Pulse Rate 65 74 74 Respiratory Rate 18 16 Blood Pressure 138/70 104/52 L 104/52 L Pulse Oximetry 94 96 Oxygen Delivery Method Room Air Room Air BMI result Body Mass Index 26.1 Labs 04/06/25 07:19 04/06/25 07:19 Labs: Laboratory Results - last 48 hr 04/06/25 07:19 WBC 6.9 RBC 4.53 L Hgb 13.3 L Hct 42.0 MCV 92.7 MCH 29.4 MCHC 31.7 RDW 13.7 Plt Count 169 D MPV 11.0 Immature Gran % (Auto) 0.3 Neut % (Auto) 65.2 Lymph % (Auto) 19.7 L Howard % (Auto) 9.7 Eos % (Auto) 4.5 H Baso % (Auto) 0.6 Lymph # (Auto) 1.4 Howard # (Auto) 0.7 Eos # (Auto) 0.3 Baso # (Auto) 0.0 Abs Immat Gran (auto) 0.02 Absolute Neuts (auto) 4.5 Absolute Nucleated RBC 0.000 Nucleated RBC % (auto) 0.0 Sodium 141 Potassium 4.4 Chloride 103 Carbon Dioxide 32 H Anion Gap 10 L BUN 22 H Creatinine 0.81 Estim Creat Clear Calc 104.1 Estimated GFR > 60 Random Glucose 132 H Calcium 9.9 Total Bilirubin 0.3 AST 33 ALT 24 Alkaline Phosphatase 123 H Total Protein 8.7 H Albumin 4.2 Medications Medications Current Medications Acetaminophen (Acetaminophen 325 Mg Tablet) 650 mg PO Q6H PRN PRN Reason: Headache/Pain, Scale 1-10 Al Hydroxide/Mg Hydroxide (Magnesium Hydrox/Alum Hydrox 30 Ml Oral.Susp) 30 ml PO Q6H PRN PRN Reason: Heartburn/Nausea Ascorbic Acid (Ascorbic Acid 500 Mg Tablet) 500 mg PO DAILY [facility] Last Admin: 04/06/25 08:30 Dose: 500 mg Atorvastatin Calcium (Atorvastatin Calcium 80 Mg Tablet) 80 mg PO BEDTIME [facility] Last Admin: 04/05/25 21:27 Dose: 80 mg Cephalexin HCl (Cephalexin 500 Mg Capsule) 500 mg PO Q6H [facility] Stop: 04/10/25 08:59 Last Admin: 04/06/25 08:28 Dose: 500 mg Cyanocobalamin (Cyanocobalamin (Vitamin B-12) 500 Mcg Tablet) 250 mcg PO DAILY [facility] Last Admin: 04/06/25 08:29 Dose: 250 mcg Diazepam (Diazepam 5 Mg Tablet) 5 mg PO BEDTIME [facility] Last Admin: 04/05/25 21:27 Dose: 5 mg Ferrous Sulfate (Ferrous Sulfate 324 Mg Tablet.Dr) 324 mg PO DAILY [facility] Last Admin: 04/06/25 08:29 Dose: 324 mg Folic Acid (Folic Acid 1 Mg Tablet) 1 mg PO DAILY [facility] Last Admin: 04/06/25 08:30 Dose: 1 mg Gabapentin (Gabapentin 300 Mg Capsule) 300 mg PO BID [facility] Last Admin: 04/06/25 08:30 Dose: 300 mg Lamotrigine (Lamotrigine 25 Mg Tablet) 50 mg PO BEDTIME [facility] Last Admin: 04/05/25 21:28 Dose: 50 mg Levothyroxine Sodium (Levothyroxine Sodium 75 Mcg Tablet) 75 mcg PO DAILY@0700 [facility] Last Admin: 04/06/25 06:09 Dose: 75 mcg Loperamide HCl (Loperamide Hcl 2 Mg Capsule) 2 mg PO Q4H PRN PRN Reason: Loose Stool Last Admin: 03/31/25 09:18 Dose: 2 mg Lurasidone HCl (Lurasidone Hcl 40 Mg Tablet) 40 mg PO DAILY@1700 [facility] Last Admin: 04/05/25 17:51 Dose: 40 mg Magnesium Hydroxide (Milk Of Magnesia 30 Ml Oral.Susp) 30 ml PO DAILY PRN PRN Reason: Constipation Melatonin (Melatonin 3 Mg Tablet) 6 mg PO BEDTIME [facility] Last Admin: 04/05/25 21:28 Dose: 6 mg Metoprolol Succinate (Metoprolol Succinate Er 50 Mg Tab.Er.24h) 50 mg PO DAILY [facility]; Protocol Last Admin: 04/06/25 08:30 Dose: 50 mg Naltrexone HCl (Naltrexone Hcl 50 Mg Tablet) 50 mg PO DAILY [facility] Last Admin: 04/06/25 08:31 Dose: 50 mg Omeprazole (Omeprazole 20 Mg Capsule.Dr) 20 mg PO DAILY@0630 [facility] Last Admin: 04/06/25 06:09 Dose: 20 mg Pyridoxine HCl (Pyridoxine Hcl (Vitamin B6) 50 Mg Tablet) 50 mg PO DAILY [facility] Last Admin: 04/06/25 08:29 Dose: 50 mg Quetiapine Fumarate (Quetiapine Fumarate 100 Mg Tablet) 100 mg PO BEDTIME [facility] Last Admin: 04/05/25 22:17 Dose: 100 mg Quetiapine Fumarate (Quetiapine Fumarate 100 Mg Tablet) 100 mg PO BEDTIME PRN PRN Reason: insomnia Last Admin: 04/06/25 00:03 Dose: 100 mg Ropinirole HCl (Ropinirole Hcl 0.5 Mg Tablet) 0.5 mg PO BID [facility] Last Admin: 04/06/25 08:28 Dose: 0.5 mg Senna (Sennosides 8.6 Mg Tablet) 17.2 mg PO BEDTIME PRN PRN Reason: Constipation Sertraline HCl (Sertraline Hcl 25 Mg Tablet) 75 mg PO DAILY [facility] Last Admin: 04/06/25 08:27 Dose: 75 mg Thiamine HCl (Thiamine Hcl 100 Mg Tablet) 100 mg PO DAILY [facility] Last Admin: 04/06/25 08:30 Dose: 100 mg Trazodone HCl (Trazodone Hcl 100 Mg Tablet) 100 mg PO BEDTIME [facility] Last Admin: 04/04/25 21:39 Dose: 100 mg Trazodone HCl (Trazodone Hcl 50 Mg Tablet) 50 mg PO BEDTIME PRN PRN Reason: Insomnia Last Admin: 04/05/25 02:55 Dose: 50 mg Vitamin D (Cholecalciferol (Vitamin D3) 25 Mcg Tablet) 50 mcg PO DAILY [facility] Last Admin: 04/06/25 08:28 Dose: 50 mcg Allergies Allergies Allergy/AdvReac Type Severity Reaction Status Date / Time No Known Allergies Allergy Verified 09/25/20 09:06 Assessment & Plan Assessment & Plan (1) Bipolar disorder with psychotic features: Status: Acute Code(s): F31.9 - Bipolar disorder, unspecified (2) Restless leg syndrome: Status: Acute Code(s): G25.81 - Restless legs syndrome Plan Mr Pearce is a 69 year-old male with hx of Bipolar Disorder and alcohol use disorder. Pt was brought to [facility] due to increase suicidal ideation with intent to OD. He reports he recently relapsed on alcohol and has had multiple losses which are contributing to increased depression. He denies SI/HI. Although not overt delusional content, collateral information reports he is often paranoid and suspicious of staff at [facility] and previous providers from [facility]. He as day went by appeared more suspicious of staff here on the unit, thinking they were talking about him. He has severe RLS. He has tried a number of medications for this including gabapentin and requip. He is also on a number of medication are known to exacerbate RLS including seroquel and sertraline. We discussed tapering off seroquel. We can add different antipsychotic that may cause less RLS. May try rexulti, vraylar or latuda. We also discussed considering switching sertraline to effexor or cymbalta as it may provide some benefit in terms of neuropathic pain with less exacerbation on RLS. Also consider switch from metoprolol to propanolol--> however, note that EKG shows 1st degree AV block and propanolol as not selective beta jordi may have greater impact on AV blockage. Clonidine also contributes to AV block and progression. PLAN 04/01 start rexulti 0.5mg po qhs. 04/02 will add trazodone 50mg po qhs, magnesium citrate 400mg po qhs for sleep. 04/03 increase trazodone 100mg po qhs, d/c rexulti, add latuda 40mg po daily at dinner time. 04/04 will switch ativan to diazepam 5mg po at bedtime. continue trazodone 100mg po qhs. latuda at current dose. 04/05: c/o severe insomnis the past 3 nights and RLS Sx worse than before. hold trazodone for now and restart seroquel at HS, 100 mg scheduled and 100 mg PRN, per pt request. pt to review meds regimen with provider tomorrow for any more permanent changes. 04/06 continue seroquel, restart trazodone 100mg po qhs. can't do clonidine due to low BP. Reason for continued inpatient stay Substantial Risk for: inability to function Time Spent With Patient Time: Total time managing care of this patient today ____ minutes.
[2025-04-06] MEDS: Lurasidone HCl 40 MG TABLET PO (16:52)
[2025-04-06 20:00] VITALS: BP 118/53; PULSE 64; RESP 18; TEMP 36.9; O2SAT 94
[2025-04-06] MEDS: Atorvastatin Calcium 80 MG TABLET PO (20:29)
[2025-04-06] MEDS: lamoTRIgine 25 MG TABLET 50 MG PO (20:30)
[2025-04-06] MEDS: diazePAM 5 MG TABLET PO (20:30)
[2025-04-06] MEDS: traZODone HCL 100 MG TABLET PO (20:30)
[2025-04-06] MEDS: Melatonin 3 MG TABLET 6 MG PO (20:31)
[2025-04-06] MEDS: traZODone HCL 50 MG TABLET PO (21:41)
[2025-04-07] MEDS: cephALEXin 500 MG CAPSULE PO ×4 (02:17→20:33)
[2025-04-07] MEDS: Levothyroxine Sodium 75 MCG TABLET PO (06:08)
[2025-04-07] MEDS: Omeprazole 20 MG CAPSULE.DR PO (06:08)
[2025-04-07 08:00] VITALS: BP 120/64; PULSE 66; RESP 16; TEMP 36.8; O2SAT 96
[2025-04-07] MEDS: Cholecalciferol (Vitamin D3) 25 MCG TABLET 50 MCG PO (08:25)
[2025-04-07] MEDS: Sertraline HCL 25 MG TABLET 75 MG PO (08:25)
[2025-04-07] MEDS: Thiamine HCL 100 MG TABLET PO (08:25)
[2025-04-07] MEDS: Naltrexone HCl 50 MG TABLET PO (08:25)
[2025-04-07] MEDS: Ascorbic Acid 500 MG TABLET PO (08:25)
[2025-04-07] MEDS: Cyanocobalamin (Vitamin B-12) 500 MCG TABLET 250 MCG PO (08:26)
[2025-04-07] MEDS: Ferrous Sulfate 324 MG TABLET.DR PO (08:26)
[2025-04-07] MEDS: Folic Acid 1 MG TABLET PO (08:26)
[2025-04-07] MEDS: rOPINIRole HCL 0.5 MG TABLET PO ×2 (08:27→20:33)
[2025-04-07] MEDS: Pyridoxine HCl (Vitamin B6) 50 MG TABLET PO (08:27)
[2025-04-07] MEDS: Metoprolol Succinate ER 50 MG TAB.ER.24H PO (08:27)
[2025-04-07] MEDS: Gabapentin 300 MG CAPSULE PO ×2 (08:31→20:33)
--- NOTE | 2025-04-07 10:41 | P.PNPSI_ITS ---
Subjective Subjective Date of Service: 04/07/25 Reason For Visit: other specified bipolar disorder Subjective Notes: Conditional Voluntary Interim History: Pt slept through the night- per staff 8hrs- he also reports feeling more rested today. He had combination of diazepam, trazodone 100mg po qhs, seroquel 100mg po qhs, gabapentin and requip. He reports his mood is better. He presents as less suspicious but his memory does seem to be poor. Medication Compliance: Yes Diagnostics Vital Signs (24Hr): Vital Signs - 24 hr 04/06/25 20:00 04/07/25 08:00 Temperature 98.5 F 98.2 F Pulse Rate 64 66 Respiratory Rate 18 16 Blood Pressure 118/53 L 120/64 Pulse Oximetry 94 96 Oxygen Delivery Method Room Air Room Air BMI result Body Mass Index 26.1 Labs 04/06/25 07:19 04/06/25 07:19 Labs: Laboratory Results - last 48 hr 04/06/25 07:19 WBC 6.9 RBC 4.53 L Hgb 13.3 L Hct 42.0 MCV 92.7 MCH 29.4 MCHC 31.7 RDW 13.7 Plt Count 169 D MPV 11.0 Immature Gran % (Auto) 0.3 Neut % (Auto) 65.2 Lymph % (Auto) 19.7 L W[place]er % (Auto) 9.7 Eos % (Auto) 4.5 H Baso % (Auto) 0.6 Lymph # (Auto) 1.4 [place]er # (Auto) 0.7 Eos # (Auto) 0.3 Baso # (Auto) 0.0 Abs Immat Gran (auto) 0.02 Absolute Neuts (auto) 4.5 Absolute Nucleated RBC 0.000 Nucleated RBC % (auto) 0.0 Sodium 141 Potassium 4.4 Chloride 103 Carbon Dioxide 32 H Anion Gap 10 L BUN 22 H Creatinine 0.81 Estim Creat Clear Calc 104.1 Estimated GFR > 60 Random Glucose 132 H Calcium 9.9 Total Bilirubin 0.3 AST 33 ALT 24 Alkaline Phosphatase 123 H Total Protein 8.7 H Albumin 4.2 Medications Medications Current Medications Acetaminophen (Acetaminophen 325 Mg Tablet) 650 mg PO Q6H PRN PRN Reason: Headache/Pain, Scale 1-10 Al Hydroxide/Mg Hydroxide (Magnesium Hydrox/Alum Hydrox 30 Ml Oral.Susp) 30 ml PO Q6H PRN PRN Reason: Heartburn/Nausea Ascorbic Acid (Ascorbic Acid 500 Mg Tablet) 500 mg PO DAILY [facility] Last Admin: 04/07/25 08:25 Dose: 500 mg Atorvastatin Calcium (Atorvastatin Calcium 80 Mg Tablet) 80 mg PO BEDTIME [facility] Last Admin: 04/06/25 20:29 Dose: 80 mg Cephalexin HCl (Cephalexin 500 Mg Capsule) 500 mg PO Q6H [facility] Stop: 04/10/25 08:59 Last Admin: 04/07/25 08:25 Dose: 500 mg Cyanocobalamin (Cyanocobalamin (Vitamin B-12) 500 Mcg Tablet) 250 mcg PO DAILY [facility] Last Admin: 04/07/25 08:26 Dose: 250 mcg Diazepam (Diazepam 5 Mg Tablet) 5 mg PO BEDTIME [facility] Last Admin: 04/06/25 20:30 Dose: 5 mg Ferrous Sulfate (Ferrous Sulfate 324 Mg Tablet.Dr) 324 mg PO DAILY [facility] Last Admin: 04/07/25 08:26 Dose: 324 mg Folic Acid (Folic Acid 1 Mg Tablet) 1 mg PO DAILY [facility] Last Admin: 04/07/25 08:26 Dose: 1 mg Gabapentin (Gabapentin 300 Mg Capsule) 300 mg PO BID [facility] Last Admin: 04/07/25 08:31 Dose: 300 mg Lamotrigine (Lamotrigine 25 Mg Tablet) 50 mg PO BEDTIME [facility] Last Admin: 04/06/25 20:30 Dose: 50 mg Levothyroxine Sodium (Levothyroxine Sodium 75 Mcg Tablet) 75 mcg PO DAILY@0700 [facility] Last Admin: 04/07/25 06:08 Dose: 75 mcg Loperamide HCl (Loperamide Hcl 2 Mg Capsule) 2 mg PO Q4H PRN PRN Reason: Loose Stool Last Admin: 03/31/25 09:18 Dose: 2 mg Lurasidone HCl (Lurasidone Hcl 40 Mg Tablet) 40 mg PO DAILY@1700 [facility] Last Admin: 04/06/25 16:52 Dose: 40 mg Magnesium Hydroxide (Milk Of Magnesia 30 Ml Oral.Susp) 30 ml PO DAILY PRN PRN Reason: Constipation Melatonin (Melatonin 3 Mg Tablet) 6 mg PO BEDTIME [facility] Last Admin: 04/06/25 20:31 Dose: 6 mg Metoprolol Succinate (Metoprolol Succinate Er 50 Mg Tab.Er.24h) 50 mg PO DAILY [facility]; Protocol Last Admin: 04/07/25 08:27 Dose: 50 mg Naltrexone HCl (Naltrexone Hcl 50 Mg Tablet) 50 mg PO DAILY [facility] Last Admin: 04/07/25 08:25 Dose: 50 mg Omeprazole (Omeprazole 20 Mg Capsule.Dr) 20 mg PO DAILY@0630 [facility] Last Admin: 04/07/25 06:08 Dose: 20 mg Pyridoxine HCl (Pyridoxine Hcl (Vitamin B6) 50 Mg Tablet) 50 mg PO DAILY [facility] Last Admin: 04/07/25 08:27 Dose: 50 mg Quetiapine Fumarate (Quetiapine Fumarate 100 Mg Tablet) 100 mg PO BEDTIME [facility] Last Admin: 04/06/25 20:30 Dose: 100 mg Quetiapine Fumarate (Quetiapine Fumarate 100 Mg Tablet) 100 mg PO BEDTIME PRN PRN Reason: insomnia Last Admin: 04/06/25 00:03 Dose: 100 mg Ropinirole HCl (Ropinirole Hcl 0.5 Mg Tablet) 0.5 mg PO BID [facility] Last Admin: 04/07/25 08:27 Dose: 0.5 mg Senna (Sennosides 8.6 Mg Tablet) 17.2 mg PO BEDTIME PRN PRN Reason: Constipation Sertraline HCl (Sertraline Hcl 25 Mg Tablet) 75 mg PO DAILY [facility] Last Admin: 04/07/25 08:25 Dose: 75 mg Thiamine HCl (Thiamine Hcl 100 Mg Tablet) 100 mg PO DAILY [facility] Last Admin: 04/07/25 08:25 Dose: 100 mg Trazodone HCl (Trazodone Hcl 100 Mg Tablet) 100 mg PO BEDTIME [facility] Last Admin: 04/06/25 20:30 Dose: 100 mg Trazodone HCl (Trazodone Hcl 50 Mg Tablet) 50 mg PO BEDTIME PRN PRN Reason: Insomnia Last Admin: 04/06/25 21:41 Dose: 50 mg Vitamin D (Cholecalciferol (Vitamin D3) 25 Mcg Tablet) 50 mcg PO DAILY [facility] Last Admin: 04/07/25 08:25 Dose: 50 mcg Allergies Allergies Allergy/AdvReac Type Severity Reaction Status Date / Time No Known Allergies Allergy Verified 09/25/20 09:06 Assessment & Plan Assessment & Plan (1) Bipolar disorder with psychotic features: Status: Acute Code(s): F31.9 - Bipolar disorder, unspecified (2) Restless leg syndrome: Status: Acute Code(s): G25.81 - Restless legs syndrome Plan Mr Pearce is a 69 year-old male with hx of Bipolar Disorder and alcohol use disorder. Pt was brought to [facility] due to increase suicidal ideation with intent to OD. He reports he recently relapsed on alcohol and has had multiple losses which are contributing to increased depression. He denies SI/HI. Although not overt delusional content, collateral information reports he is often paranoid and suspicious of staff at [facility] and previous providers from [facility]. He as day went by appeared more suspicious of staff here on the unit, thinking they were talking about him. He has severe RLS. He has tried a number of medications for this including gabapentin and requip. He is also on a number of medication are known to exacerbate RLS including seroquel and sertraline. We discussed tapering off seroquel. We can add different antipsychotic that may cause less RLS. May try rexulti, vraylar or latuda. We also discussed considering switching sertraline to effexor or cymbalta as it may provide some benefit in terms of neuropathic pain with less exacerbation on RLS. Also consider switch from metoprolol to propanolol--> however, note that EKG shows 1st degree AV block and propanolol as not selective beta jordi may have greater impact on AV blockage. Clonidine also contributes to AV block and progression. PLAN 04/01 start rexulti 0.5mg po qhs. 04/02 will add trazodone 50mg po qhs, magnesium citrate 400mg po qhs for sleep. 04/03 increase trazodone 100mg po qhs, d/c rexulti, add latuda 40mg po daily at dinner time. 04/04 will switch ativan to diazepam 5mg po at bedtime. continue trazodone 100mg po qhs. latuda at current dose. 04/05: c/o severe insomnis the past 3 nights and RLS Sx worse than before. hold trazodone for now and restart seroquel at HS, 100 mg scheduled and 100 mg PRN, per pt request. pt to review meds regimen with provider tomorrow for any more permanent changes. 04/06 continue seroquel, restart trazodone 100mg po qhs. can't do clonidine due to low BP. 04/07 pt reports sleep improved. less paranoid, denies SI/HI. plan to DC on Thursday. Reason for continued inpatient stay Substantial Risk for: inability to function Time Spent With Patient Time: Total time managing care of this patient today ____ minutes.
[2025-04-07] MEDS: Loperamide HCl 2 MG CAPSULE PO (16:41)
[2025-04-07] MEDS: Lurasidone HCl 20 MG TABLET 60 MG PO (16:41)
[2025-04-07 20:00] VITALS: BP 122/63; PULSE 57; RESP 16; TEMP 36.6; O2SAT 96
[2025-04-07] MEDS: lamoTRIgine 25 MG TABLET 50 MG PO (20:33)
[2025-04-07] MEDS: diazePAM 5 MG TABLET PO (20:33)
[2025-04-07] MEDS: Atorvastatin Calcium 80 MG TABLET PO (20:33)
[2025-04-07] MEDS: traZODone HCL 100 MG TABLET PO (20:33)
[2025-04-07] MEDS: Melatonin 3 MG TABLET 6 MG PO (20:33)
[2025-04-07] MEDS: QUEtiapine Fumarate 100 MG TABLET PO (20:34)
[2025-04-08] MEDS: traZODone HCL 50 MG TABLET PO ×2 (00:14→22:42)
[2025-04-08] MEDS: QUEtiapine Fumarate 100 MG TABLET PO ×3 (00:15→22:42)
[2025-04-08] MEDS: cephALEXin 500 MG CAPSULE PO ×4 (03:00→20:34)
[2025-04-08] MEDS: Omeprazole 20 MG CAPSULE.DR PO (06:23)
[2025-04-08] MEDS: Levothyroxine Sodium 75 MCG TABLET PO (06:23)
[2025-04-08 08:00] VITALS: BP 132/72; PULSE 77; RESP 16; TEMP 36.3; O2SAT 99
[2025-04-08] MEDS: Loperamide HCl 2 MG CAPSULE PO (08:29)
[2025-04-08] MEDS: Folic Acid 1 MG TABLET PO (08:30)
[2025-04-08] MEDS: Pyridoxine HCl (Vitamin B6) 50 MG TABLET PO (08:30)
[2025-04-08] MEDS: Ascorbic Acid 500 MG TABLET PO (08:30)
[2025-04-08] MEDS: Cyanocobalamin (Vitamin B-12) 500 MCG TABLET 250 MCG PO (08:30)
[2025-04-08] MEDS: rOPINIRole HCL 0.5 MG TABLET PO ×2 (08:30→20:34)
[2025-04-08] MEDS: Cholecalciferol (Vitamin D3) 25 MCG TABLET 50 MCG PO (08:31)
[2025-04-08] MEDS: Naltrexone HCl 50 MG TABLET PO (08:31)
[2025-04-08] MEDS: Thiamine HCL 100 MG TABLET PO (08:31)
[2025-04-08] MEDS: Gabapentin 300 MG CAPSULE PO ×2 (08:31→20:35)
[2025-04-08] MEDS: Ferrous Sulfate 324 MG TABLET.DR PO (08:31)
[2025-04-08] MEDS: Metoprolol Succinate ER 50 MG TAB.ER.24H PO (08:31)
[2025-04-08] MEDS: Sertraline HCL 25 MG TABLET 75 MG PO (09:56)
[2025-04-08] MEDS: QUEtiapine Fumarate 25 MG TABLET PO (12:43)
[2025-04-08] MEDS: Lurasidone HCl 20 MG TABLET 60 MG PO (16:26)
[2025-04-08 20:00] VITALS: BP 157/69; PULSE 59; RESP 17; TEMP 36.3; O2SAT 96
[2025-04-08] MEDS: traZODone HCL 100 MG TABLET PO (20:34)
[2025-04-08] MEDS: lamoTRIgine 25 MG TABLET 50 MG PO (20:34)
[2025-04-08] MEDS: diazePAM 5 MG TABLET PO (20:34)
[2025-04-08] MEDS: Atorvastatin Calcium 80 MG TABLET PO (20:34)
[2025-04-08] MEDS: Melatonin 3 MG TABLET 6 MG PO (20:35)
[2025-04-09] MEDS: cephALEXin 500 MG CAPSULE PO ×4 (03:00→20:41)
[2025-04-09] MEDS: Levothyroxine Sodium 75 MCG TABLET PO (06:04)
[2025-04-09] MEDS: Omeprazole 20 MG CAPSULE.DR PO (06:04)
[2025-04-09 08:00] VITALS: BP 142/65; PULSE 62; RESP 16; TEMP 37.3; O2SAT 93
[2025-04-09] MEDS: Sertraline HCL 25 MG TABLET 75 MG PO (08:24)
[2025-04-09] MEDS: Folic Acid 1 MG TABLET PO (08:24)
[2025-04-09] MEDS: Naltrexone HCl 50 MG TABLET PO (08:24)
[2025-04-09] MEDS: Metoprolol Succinate ER 50 MG TAB.ER.24H PO (08:24)
[2025-04-09] MEDS: Thiamine HCL 100 MG TABLET PO (08:24)
[2025-04-09] MEDS: Cyanocobalamin (Vitamin B-12) 500 MCG TABLET 250 MCG PO (08:24)
[2025-04-09] MEDS: Gabapentin 300 MG CAPSULE PO ×2 (08:25→20:41)
[2025-04-09] MEDS: Cholecalciferol (Vitamin D3) 25 MCG TABLET 50 MCG PO (08:25)
[2025-04-09] MEDS: Ferrous Sulfate 324 MG TABLET.DR PO (08:25)
[2025-04-09] MEDS: Ascorbic Acid 500 MG TABLET PO (08:25)
[2025-04-09] MEDS: Pyridoxine HCl (Vitamin B6) 50 MG TABLET PO (08:25)
[2025-04-09] MEDS: rOPINIRole HCL 0.5 MG TABLET PO ×2 (08:25→20:40)
[2025-04-09] MEDS: QUEtiapine Fumarate 25 MG TABLET PO (13:01)
--- NOTE | 2025-04-09 15:12 | P.PNPSI_ITS ---
Subjective Subjective Date of Service: 04/09/25 Reason For Visit: other specified bipolar disorder Interim History: napping after breakfast. rousable. loquacious. c/o insomnia, asking that his seroquel dosing at be increased, agrees. pt to discharge tomorrow. per staff, no issues, DC tomorrow. Mental Status Exam Mental Status Exam Narrative: Appearance: wearing own attire, fair hygiene, in NAD Behavior: calm, cooperative Psychomotor: moving of feet while in bed, no tremors. no agitation or retardation noted Speech: mostly clear, regular rate/rhythm/volume, spontaneous TP: tangential TC: worried about sleep Mood: ok Affect: full range, flexible, well-related SI: none expressed HI: none expressed VH/AH: none expressed Delusions: none expressed Insight/judgment: poor x 2. Memory/cog: alert, oriented x 3. noted gaps in memory as he is recalling medical hx and recent admission to the hospital Diagnostics Vital Signs (24Hr): Vital Signs - 24 hr 04/08/25 20:00 04/09/25 08:00 Temperature 97.3 F 99.1 F Pulse Rate 59 62 Respiratory Rate 17 16 Blood Pressure 157/69 H 142/65 H Pulse Oximetry 96 93 Oxygen Delivery Method Room Air Room Air BMI result Body Mass Index 26.1 Labs 04/06/25 07:19 04/06/25 07:19 Medications Medications Current Medications Acetaminophen (Acetaminophen 325 Mg Tablet) 650 mg PO Q6H PRN PRN Reason: Headache/Pain, Scale 1-10 Al Hydroxide/Mg Hydroxide (Magnesium Hydrox/Alum Hydrox 30 Ml Oral.Susp) 30 ml PO Q6H PRN PRN Reason: Heartburn/Nausea Ascorbic Acid (Ascorbic Acid 500 Mg Tablet) 500 mg PO DAILY [facility] Last Admin: 04/09/25 08:25 Dose: 500 mg Atorvastatin Calcium (Atorvastatin Calcium 80 Mg Tablet) 80 mg PO BEDTIME [facility] Last Admin: 04/08/25 20:34 Dose: 80 mg Cephalexin HCl (Cephalexin 500 Mg Capsule) 500 mg PO Q6H [facility] Stop: 04/10/25 08:59 Last Admin: 04/09/25 08:24 Dose: 500 mg Cyanocobalamin (Cyanocobalamin (Vitamin B-12) 500 Mcg Tablet) 250 mcg PO DAILY [facility] Last Admin: 04/09/25 08:24 Dose: 250 mcg Diazepam (Diazepam 5 Mg Tablet) 5 mg PO BEDTIME [facility] Last Admin: 04/08/25 20:34 Dose: 5 mg Ferrous Sulfate (Ferrous Sulfate 324 Mg Tablet.) 324 mg PO DAILY [facility] Last Admin: 04/09/25 08:25 Dose: 324 mg Folic Acid (Folic Acid 1 Mg Tablet) 1 mg PO DAILY [facility] Last Admin: 04/09/25 08:24 Dose: 1 mg Gabapentin (Gabapentin 300 Mg Capsule) 300 mg PO BID [facility] Last Admin: 04/09/25 08:25 Dose: 300 mg Lamotrigine (Lamotrigine 25 Mg Tablet) 50 mg PO BEDTIME [facility] Last Admin: 04/08/25 20:34 Dose: 50 mg Levothyroxine Sodium (Levothyroxine Sodium 75 Mcg Tablet) 75 mcg PO DAILY@0700 [facility] Last Admin: 04/09/25 06:04 Dose: 75 mcg Loperamide HCl (Loperamide Hcl 2 Mg Capsule) 2 mg PO Q4H PRN PRN Reason: Loose Stool Last Admin: 04/08/25 08:29 Dose: 2 mg Lurasidone HCl (Lurasidone Hcl 20 Mg Tablet) 60 mg PO DAILY@1700 [facility] Last Admin: 04/08/25 16:26 Dose: 60 mg Magnesium Hydroxide (Milk Of Magnesia 30 Ml Oral.Susp) 30 ml PO DAILY PRN PRN Reason: Constipation Melatonin (Melatonin 3 Mg Tablet) 6 mg PO BEDTIME [facility] Last Admin: 04/08/25 20:35 Dose: 6 mg Metoprolol Succinate (Metoprolol Succinate Er 50 Mg Tab.Er.24h) 50 mg PO DAILY [facility]; Protocol Last Admin: 04/09/25 08:24 Dose: 50 mg Naltrexone HCl (Naltrexone Hcl 50 Mg Tablet) 50 mg PO DAILY [facility] Last Admin: 04/09/25 08:24 Dose: 50 mg Omeprazole (Omeprazole 20 Mg Capsule.) 20 mg PO DAILY@0630 [facility] Last Admin: 04/09/25 06:04 Dose: 20 mg Pyridoxine HCl (Pyridoxine Hcl (Vitamin B6) 50 Mg Tablet) 50 mg PO DAILY [facility] Last Admin: 04/09/25 08:25 Dose: 50 mg Quetiapine Fumarate (Quetiapine Fumarate 100 Mg Tablet) 100 mg PO BEDTIME [facility] Last Admin: 04/08/25 20:34 Dose: 100 mg Quetiapine Fumarate (Quetiapine Fumarate 100 Mg Tablet) 100 mg PO BEDTIME PRN PRN Reason: insomnia Last Admin: 04/08/25 22:42 Dose: 100 mg Quetiapine Fumarate (Quetiapine Fumarate 25 Mg Tablet) 25 mg PO DAILY@1300 [facility] Last Admin: 04/09/25 13:01 Dose: 25 mg Ropinirole HCl (Ropinirole Hcl 0.5 Mg Tablet) 0.5 mg PO BID [facility] Last Admin: 04/09/25 08:25 Dose: 0.5 mg Senna (Sennosides 8.6 Mg Tablet) 17.2 mg PO BEDTIME PRN PRN Reason: Constipation Sertraline HCl (Sertraline Hcl 25 Mg Tablet) 75 mg PO DAILY [facility] Last Admin: 04/09/25 08:24 Dose: 75 mg Thiamine HCl (Thiamine Hcl 100 Mg Tablet) 100 mg PO DAILY [facility] Last Admin: 04/09/25 08:24 Dose: 100 mg Trazodone HCl (Trazodone Hcl 100 Mg Tablet) 100 mg PO BEDTIME [facility] Last Admin: 04/08/25 20:34 Dose: 100 mg Trazodone HCl (Trazodone Hcl 50 Mg Tablet) 50 mg PO BEDTIME PRN PRN Reason: Insomnia Last Admin: 04/08/25 22:42 Dose: 50 mg Vitamin D (Cholecalciferol (Vitamin D3) 25 Mcg Tablet) 50 mcg PO DAILY [facility] Last Admin: 04/09/25 08:25 Dose: 50 mcg Allergies Allergies Allergy/AdvReac Type Severity Reaction Status Date / Time No Known Allergies Allergy Verified 09/25/20 09:06 Assessment & Plan Assessment & Plan (1) Bipolar disorder with psychotic features: Status: Acute Code(s): F31.9 - Bipolar disorder, unspecified (2) Restless leg syndrome: Status: Acute Code(s): G25.81 - Restless legs syndrome Plan Mr Pearce is a 69 year-old male with hx of Bipolar Disorder and alcohol use disorder. Pt was brought to [facility] due to increase suicidal ideation with intent to OD. He reports he recently relapsed on alcohol and has had multiple losses which are contributing to increased depression. He denies SI/HI. Although not overt delusional content, collateral information reports he is often paranoid and suspicious of staff at [facility] and previous providers from [facility]. He as day went by appeared more suspicious of staff here on the unit, thinking they were talking about him. He has severe RLS. He has tried a number of medications for this including gabapentin and requip. He is also on a number of medication are known to exacerbate RLS including seroquel and sertraline. We discussed tapering off seroquel. We can add different antipsychotic that may cause less RLS. May try rexulti, vraylar or latuda. We also discussed considering switching sertraline to effexor or cymbalta as it may provide some benefit in terms of neuropathic pain with less exacerbation on RLS. Also consider switch from metoprolol to propanolol--> however, note that EKG shows 1st degree AV block and propanolol as not selective beta jordi may have greater impact on AV blockage. Clonidine also contributes to AV block and progression. PLAN 04/01 start rexulti 0.5mg po qhs. 04/02 will add trazodone 50mg po qhs, magnesium citrate 400mg po qhs for sleep. 04/03 increase trazodone 100mg po qhs, d/c rexulti, add latuda 40mg po daily at dinner time. 04/04 will switch ativan to diazepam 5mg po at bedtime. continue trazodone 100mg po qhs. latuda at current dose. 04/05: c/o severe insomnis the past 3 nights and RLS Sx worse than before. hold trazodone for now and restart seroquel at HS, 100 mg scheduled and 100 mg PRN, per pt request. pt to review meds regimen with provider tomorrow for any more permanent changes. 04/06 continue seroquel, restart trazodone 100mg po qhs. can't do clonidine due to low BP. 04/07 pt reports sleep improved. less paranoid, denies SI/HI. plan to DC on Thursday. 04/09: c/o insomnia, asking for more seroquel at HS. increase HS seroquel to 150 mg. planning to discharge tomorrow. Reason for continued inpatient stay Substantial Risk for: inability to function and rapid decompensation Time Spent With Patient Time: Total time managing care of this patient today ____ minutes.
[2025-04-09] MEDS: Loperamide HCl 2 MG CAPSULE PO (15:24)
[2025-04-09] MEDS: Lurasidone HCl 20 MG TABLET 60 MG PO (16:55)
[2025-04-09 19:25] VITALS: BP 120/58; PULSE 71; TEMP 36.7; O2SAT 94
[2025-04-09] MEDS: Atorvastatin Calcium 80 MG TABLET PO (20:39)
[2025-04-09] MEDS: lamoTRIgine 25 MG TABLET 50 MG PO (20:39)
[2025-04-09] MEDS: Melatonin 3 MG TABLET 6 MG PO (20:39)
[2025-04-09] MEDS: diazePAM 5 MG TABLET PO (20:40)
[2025-04-09] MEDS: QUEtiapine Fumarate 50 MG TABLET 150 MG PO (20:40)
[2025-04-09] MEDS: traZODone HCL 100 MG TABLET PO (20:41)
[2025-04-10] MEDS: QUEtiapine Fumarate 100 MG TABLET PO (00:31)
[2025-04-10] MEDS: traZODone HCL 50 MG TABLET PO (00:32)
[2025-04-10] MEDS: cephALEXin 500 MG CAPSULE PO (02:47)
[2025-04-10] MEDS: Omeprazole 20 MG CAPSULE.DR PO (06:14)
[2025-04-10] MEDS: Levothyroxine Sodium 75 MCG TABLET PO (06:14)
[2025-04-10 08:00] VITALS: BP 98/57; PULSE 75; RESP 18; TEMP 36.3; O2SAT 95
[2025-04-10] MEDS: Folic Acid 1 MG TABLET PO (08:27)
[2025-04-10] MEDS: Sertraline HCL 25 MG TABLET 75 MG PO (08:27)
[2025-04-10] MEDS: Pyridoxine HCl (Vitamin B6) 50 MG TABLET PO (08:28)
[2025-04-10] MEDS: Thiamine HCL 100 MG TABLET PO (08:28)
[2025-04-10] MEDS: Cholecalciferol (Vitamin D3) 25 MCG TABLET 50 MCG PO (08:28)
[2025-04-10] MEDS: Ascorbic Acid 500 MG TABLET PO (08:28)
[2025-04-10] MEDS: Gabapentin 300 MG CAPSULE PO (08:28)
[2025-04-10] MEDS: Cyanocobalamin (Vitamin B-12) 500 MCG TABLET 250 MCG PO (08:28)
[2025-04-10] MEDS: Naltrexone HCl 50 MG TABLET PO (08:28)
[2025-04-10] MEDS: rOPINIRole HCL 0.5 MG TABLET PO (08:30)
[2025-04-10] MEDS: Ferrous Sulfate 324 MG TABLET.DR PO (08:30)
--- NOTE | 2025-04-10 09:25 | P.DS_ITS ---
DS: Providers Provider Date of Service: 04/10/25 Date of admission: 03/29/25 17:08 Date of discharge: 04/10/25 Primary care physician: Mustapha Beyer MD Consults: 03/29/25 20:12 Consult to Hospitalist Routine Comment: Consulting Provider: [facility] Hospitalists Reason For Exam: medical H&P 03/29/25 20:17 Consult to Wound Care Routine Reason for consultation: left toe Has provider been notified: No DS: Diagnosis Discharge Diagnosis (1) Bipolar disorder with psychotic features: Status: Acute (2) Restless leg syndrome: Status: Acute DS: Medications Discharge Medications Home Medications: Home Medications ?Medication ?Instructions ?Recorded ?Confirmed cholecalciferol (vitamin D3) 50 50 mcg PO DAILY 03/29/25 03/29/25 mcg (2,000 unit) tablet cyanocobalamin (vitamin B-12) 500 PO 03/29/25 mcg tablet folic acid 1 mg tablet 1 mg PO DAILY 03/29/25 03/29/25 hydroxyzine HCl 50 mg tablet 50 mg PO NEEDED 03/29/25 03/29/25 lamotrigine 25 mg tablet 25 mg PO DAILY 03/29/25 03/29/25 levothyroxine 75 mcg tablet PO 03/29/25 levothyroxine 75 mcg tablet PO 03/29/25 lorazepam 1 mg tablet 1 mg PO BEDTIME 03/29/25 03/29/25 metoprolol succinate 50 mg 50 mg PO DAILY 03/29/25 03/29/25 tablet,extended release 24 hr mirtazapine 15 mg tablet 15 mg PO BEDTIME 03/29/25 03/29/25 naltrexone 50 mg tablet 50 mg PO DAILY 03/29/25 03/29/25 pantoprazole 40 mg tablet,delayed 40 mg PO DAILY 03/29/25 03/29/25 release pyridoxine (vitamin B6) 50 mg 50 mg PO DAILY 03/29/25 03/29/25 tablet (Vitamin B-6) quetiapine 100 mg tablet PO 03/29/25 quetiapine 300 mg tablet,extended 300 mg PO BEDTIME 03/29/25 03/29/25 release 24 hr ropinirole 0.5 mg tablet PO BID 03/29/25 rosuvastatin 20 mg tablet 20 mg PO BEDTIME 03/29/25 03/29/25 sertraline 50 mg tablet 150 mg PO DAILY 03/29/25 03/29/25 thiamine HCl (vitamin B1) 100 mg 100 mg PO DAILY 03/29/25 03/29/25 tablet trazodone 100 mg tablet PO 03/29/25 Mental Status Exam Mental Status Exam Narrative: Appearance: wearing own attire, fair hygiene, in NAD Behavior: calm, cooperative Psychomotor: moving of feet while in bed, no tremors. no agitation or retardation noted Speech: mostly clear, regular rate/rhythm/volume, spontaneous TP: tangential TC: worried about sleep Mood: ok Affect: full range, flexible, well-related SI: none expressed HI: none expressed VH/AH: none expressed Delusions: none expressed Insight/judgment: poor x 2. Memory/cog: alert, oriented x 3. noted gaps in memory as he is recalling medical hx and recent admission to the hospital Data Data Completed and Pending Completed studies during hospitalization [Text1]: 04/06/25 07:19 WBC 6.9 RBC 4.53 L Hgb 13.3 L Hct 42.0 MCV 92.7 MCH 29.4 MCHC 31.7 RDW 13.7 Plt Count 169 D MPV 11.0 Immature Gran % (Auto) 0.3 Neut % (Auto) 65.2 Lymph % (Auto) 19.7 L Rankin % (Auto) 9.7 Eos % (Auto) 4.5 H Baso % (Auto) 0.6 Lymph # (Auto) 1.4 Rankin # (Auto) 0.7 Eos # (Auto) 0.3 Baso # (Auto) 0.0 Abs Immat Gran (auto) 0.02 Absolute Neuts (auto) 4.5 Absolute Nucleated RBC 0.000 Nucleated RBC % (auto) 0.0 Sodium 141 Potassium 4.4 Chloride 103 Carbon Dioxide 32 H Anion Gap 10 L BUN 22 H Creatinine 0.81 Estim Creat Clear Calc 104.1 Estimated GFR > 60 Random Glucose 132 H Calcium 9.9 Total Bilirubin 0.3 AST 33 ALT 24 Alkaline Phosphatase 123 H Total Protein 8.7 H Albumin 4.2 DS: Summary Hospital Course Hospital Course: Mr. Pearce is a 69 year-old male with hx of depression, alcohol use in early remission who was sent to [facility] ED due to increased depression and suicidality. In the ED, pt reported multiple losses in the past few years including significant other who some years ago along with other family members as well as relapsing on alcohol, falling while ambulating. Pertinent labs in the ED include CBC without leukocytosis, normocytic anemia, CMP with no electrolyte abnormalities, BUN 16, Cr 0.90, creatinine clearance 92, LFTs wnl. Utox was negative. BAL 95. EKG showed sinus rhythm with 1st degree AV block. Pt reports he has had about a month of sobriety. He reports long hx of alcohol use which has affected his relationship with family. He reports he has been feeling more depressed in the past 2-3 weeks. He reports he recently was discharged from [facility], after treatment for depression. He denies any plan or intent to harm himself. He reports hearing voice of his niece at night but reports is not bothersome. He initially denied any s/s suggestive of para noia. Per collateral information from [facility] where he resides he becomes easily suspicious and accusatory of staff. He used to have providers through [facility] and also accused them of stealing. He reports restless legs. He has had this issue for several years. He has tried multiple medications including gabapentin, requip.He is also on other medications which can exacerbate RLS such as seroquel and even sertraline. Past Psychiatric History: Inpt: [facility] back in 2013 (similar presentation); [facility] 03/2025 (depression, SI) OP: currently prescribed by PCP HOSPITAL COURSE On the unit, pt presented with some paranoid ideas initially towards staff at facility where he resides, and slowly towards staff here. He denied suicidal or homicidal ideation. He complaint about RLS which he has had for several year. His sleep is also variable with some night pt able to sleep better and other where he struggles falling and staying asleep. In terms of medications, initial thought was to simplify medication regimen. We had discussed switching seroquel to latuda to help with mood and paranoia. Latuda was titrated to 60mg po dinner time. Sertraline was also decreased thinking it may worsened paranoid and auditory hallucinations. He was continued on lamictal increased to 50mg po bedtime, however, therapeutic effect of this medications is unclear. May want to titrate dose and see if any benefit on mood if any. Gabapentin was increased to 300mg po BID for RLS. His sleep was variable- with some nights sleeping 4-5hrs to others sleeping about 8hrs. Seroquel had to be reintroduced at bedtime for sleep. He was also continued on trazodone for sleep. Ativan at bedtime was switched to diazepam hoping that it may last longer. Clonidine was discontinued due to hotn, although pt continued to ask for it despite education on ortho hotn. Remeron was discontinued. He also was continued on naltrexon to decrease alcohol use. Pt gradually presented as more visible, brighter, less suspicious. No SI/HI. No behavioral concerns. There were no need for restraints. Status at Discharge Cognitive/behavioral status at discharge: Pt with brighter affect. No SI/HI. No overt psychosis or delusions. Less paranoid and less guarded but tendency to be accusatory. No aggression towards self or others. Functional status at discharge: uses cane/walker Overall status at discharge: patient is back to baseline Time Spent with Patient Time attestation: Total time managing care of this patient today _35___ minutes. Time spent: Greater than 30 minutes Discharge Plan Discharge Anticipated Discharge Date/Time: 04/10/25 10:24 Patient Disposition: Home, Self-Care Discharge Diagnosis: Bipolar Disorder Alcohol Use Disorder [facility] Referrals: [facility] [Other] - 04/10/25 (Follow up with your team at [facility]. Your appointment with your team is scheduled for Thursday04/10/25. ) [facility] [Other] - 04/10/25 (Return to [facility] on 04/10/25 following [facility]. ) [facility] [Other] - 04/10/25 (Your therapist will be meeting with you Thursday's and 's. Your next appointment is 04/10/25 and she will come to [facility] to see you that day. ) [facility] [Other] - 1 Week (Your outreach team at [facility] will follow up as needed. ) [facility] [Other] - 04/17/25 2:30 pm (Your first appointment with your psychiatrist is scheduled for 04/17/25 at 2:30PM with Marcy Kwong r d engineer. This appointment is in office and please arrive 15 minutes prior to appointment for paperwork and check in. ) Mustapha Beyer MD [Primary Care Provider] - 04/10/25 (Your [facility] to meet with you at Program on 04/10/25. ) Discharge Medications: New metoprolol succinate 50 mg Tablet Extended Release 24 Hr 50 mg PO DAILY Qty: 30 0RF Protocol: Hold for SBP/HR < HOLD for SBP < : 90 HOLD for HR < : 60 ferrous sulfate 324 mg (65 mg iron) Tablet,Delayed Release (Dr/Ec) 324 mg PO DAILY Qty: 30 0RF diazepam 5 mg tablet 5 mg PO BEDTIME Qty: 30 0RF lamotrigine 25 mg Tablet 50 mg PO BEDTIME Qty: 60 0RF gabapentin 300 mg Capsule 300 mg PO BID Qty: 60 0RF lurasidone 60 mg tablet 60 mg PO DAILY Qty: 30 0RF Rx Instructions: must administer with food (at least 350 calories) naltrexone 50 mg Tablet 50 mg PO DAILY Qty: 30 0RF ropinirole 0.5 mg Tablet 0.5 mg PO BID Qty: 60 0RF sertraline 50 mg tablet 50 mg PO DAILY Qty: 30 0RF melatonin 3 mg Tablet 6 mg PO BEDTIME Qty: 60 0RF levothyroxine 75 mcg Tablet 75 mcg PO DAILY@0700 Qty: 30 0RF cyanocobalamin (vitamin B-12) 500 mcg Tablet 250 mcg PO DAILY Qty: 30 0RF ascorbic acid (vitamin C) [Vitamin C] 500 mg Tablet 500 mg PO DAILY Qty: 30 0RF trazodone 100 mg Tablet 100 mg PO BEDTIME Qty: 30 0RF pyridoxine (vitamin B6) 50 mg Tablet 50 mg PO DAILY Qty: 30 0RF folic acid 1 mg Tablet 1 mg PO DAILY Qty: 30 0RF cholecalciferol (vitamin D3) 25 mcg (1,000 unit) Tablet 50 mcg PO DAILY Qty: 30 0RF thiamine mononitrate (vit B1) 100 mg Tablet 100 mg PO DAILY Qty: 30 0RF Continued pantoprazole 40 mg tablet,delayed release (DR/EC) 40 mg PO DAILY Qty: 30 0RF rosuvastatin 20 mg tablet 20 mg PO BEDTIME Qty: 30 0RF quetiapine 300 mg tablet extended release 24 hr 300 mg PO BEDTIME Qty: 30 0RF Discontinued metoprolol succinate 50 mg tablet extended release 24 hr 50 mg PO DAILY naltrexone 50 mg tablet 50 mg PO DAILY thiamine HCl (vitamin B1) 100 mg tablet 100 mg PO DAILY hydroxyzine HCl 50 mg tablet 50 mg PO NEEDED Rx Instructions: bid quetiapine 100 mg tablet PO lamotrigine 25 mg tablet 25 mg PO DAILY levothyroxine 75 mcg tablet PO Rx Instructions: takes thursday thru Sat levothyroxine 75 mcg tablet PO Rx Instructions: take two tabs on Sundays cyanocobalamin (vitamin B-12) 500 mcg tablet PO trazodone 100 mg tablet PO Rx Instructions: take 1.5 tabs ropinirole 0.5 mg tablet PO BID pyridoxine (vitamin B6) [Vitamin B-6] 50 mg tablet 50 mg PO DAILY folic acid 1 mg tablet 1 mg PO DAILY mirtazapine 15 mg tablet 15 mg PO BEDTIME lorazepam 1 mg tablet 1 mg PO BEDTIME sertraline 50 mg tablet 150 mg PO DAILY cholecalciferol (vitamin D3) 50 mcg (2,000 unit) tablet 50 mcg PO DAILY Discharge Orders: Discharge Order (Routine); Ordered 04/10/25 Ordered By: Aleah Hicks Diet: Low fat, low cholesterol Activity on Discharge: Use cane or walker Stand Alone Forms: Patient Portal Discharge page Print Language: Macedonian Care Plan Goals: 1. Maintain mood 2. NO SI/HI 3. Less paranoid ideas 4. No aggression towards self or others Health Concerns: Follow up with PCP Plan of Treatment: 1. Take medications as prescribed 2. Go to nearest ED or call 911 in event of emergency Assessment: Pt with brighter, non labile affect. No SI/HI. No overt delusional content. Sleep is fair- may want to consider sleep study. No aggression towards self or others.
[2025-04-10] MEDS: QUEtiapine Fumarate 25 MG TABLET PO (13:14)
--- NOTE | 2025-04-10 13:35 | PC.NURSE ---
Patient was aware of discharge, reported readiness for discharge. D/C instructions given to the patient. Jean-Paul took his belongings with him. Left the unit at 13:24. Transported by Aisha gaviria.
== END 2025-04-10 13:24 | disposition home or self-care (01) | DRG 885 ==
PROVIDERS: Nurse Practitioner Family; Social Worker; Admitting Provider Psychiatry & Neurology Psychiatry; Visit Provider Psychiatry & Neurology Psychiatry
DX: F31.9 Bipolar disorder, unspecified (principal); G25.81 Restless legs syndrome; E03.9 Hypothyroidism, unspecified; F10.90 Alcohol use, unspecified, uncomplicated; E11.9 Type 2 diabetes mellitus without complications; Z87.891 Personal history of nicotine dependence; Z79.890 Hormone replacement therapy; Z79.899 Other long term (current) drug therapy
CPT/HCPCS: 36415; 80053; 80061; 82728; 83036; 83540; 84439; 84443; 85025; 93005

== ENCOUNTER → 2025-03-29 17:08 | Outpatient (BNV) | payer OTHER, SELFPAY | PROVIDERS: Admitting Provider Psychiatry & Neurology Psychiatry; PCP General Practice; Visit Provider Social Worker | DX: F31.5 Bipolar disorder, current episode depressed, severe, with psychotic features (principal); G25.81 Restless legs syndrome; F10.90 Alcohol use, unspecified, uncomplicated | CPT/HCPCS: 90792; 99231; 99232; 99239; 99499 ==

== ENCOUNTER → 2025-03-29 17:08 | Outpatient (BNV) | payer OTHER, MEDICARE, SELFPAY | PROVIDERS: Admitting Provider Psychiatry & Neurology Psychiatry; PCP General Practice; Visit Provider Nurse Practitioner Family | DX: Z00.8 Encounter for other general examination (principal) | CPT/HCPCS: 99429 ==